=== PATIENT | male | born 1975 | race Caucasian/White ===

== ENCOUNTER 2019-08-23 08:47 | Outpatient (CLI) | payer MEDICARE, SELFPAY | END 2019-08-23 08:48 | disposition home or self-care (01) | LOC: CHSLAB 08:50 | PROVIDERS: PCP Physician Assistant; Visit Provider Internal Medicine Hematology & Oncology | DX: E61.1 Iron deficiency (principal) | CPT/HCPCS: 36415; 81479 ==

== ENCOUNTER 2019-09-04 10:13 | Outpatient (CLI) | payer MEDICARE, SELFPAY ==
[2019-09-04 10:29] LABS: Basophils Absolute Auto 0.05 K/mm3 (0.00-0.10); Basophils Percent Auto 0.4 % (0.0-1.0); Eosinophils Absolute Auto 0.21 K/mm3 (0.02-0.50); Eosinophils Percent Auto 1.7 % (1.0-6.0); Hematocrit 43.2 % (40.0-54.0); Hemoglobin 14.3 g/dL (14.0-18.0); Immature Granulocyte Absolute 0.03 K/mm3 (0.00-0.00); Immature Granulocyte Percent A 0.2 % (0.0-0.0); Lymphocytes Absolute Auto 1.93 K/mm3 (1.10-4.50); Lymphocytes Percent Auto 15.2 % (18.0-42.0); Mean Corpuscular HGB Conc 33.1 g/dL (32.0-36.0); Mean Corpuscular Hemoglobin 29.8 pg (27.0-31.0); Mean Platelet Volume 9.2 fl (8.7-11.0); Monocytes Absolute Auto 0.61 K/mm3 (0.10-0.90); Monocytes Percent Auto 4.8 % (2.0-11.0); Neutrophils Absolute Auto 9.9 K/mm3 (1.7-7.2); Neutrophils Percent Auto 77.7 % (50.0-70.0); Platelet Count Result 247 K/mm3 (150-420); Red Cell Distribution Width 13.9 % (11.6-14.4); White Blood Count 12.7 K/mm3 (4.8-10.8)
[2019-09-04 11:31] LABS: Ferritin 64 ng/mL (26-388); Iron 54 ug/dL (65-175); Percent Iron Saturation 20 % (12-57)
[2019-09-07 03:41] LABS: Transferrin 236 mg/dL (188-341)
== END 2019-09-04 10:14 | disposition home or self-care (01) ==
PROVIDERS: PCP Physician Assistant; Visit Provider Internal Medicine Hematology & Oncology
DX: E61.1 Iron deficiency (principal)
CPT/HCPCS: 36415; 82728; 83540; 83550; 84466; 85025

== ENCOUNTER 2021-03-24 07:48 | Outpatient (CLI) | payer MEDICARE, SELFPAY ==
[2021-03-24 08:05] LABS: Basophils Absolute Auto 0.04 K/mm3 (0.00-0.10); Basophils Percent Auto 0.4 % (0.0-1.0); Eosinophils Absolute Auto 0.56 K/mm3 (0.02-0.50); Eosinophils Percent Auto 5.6 % (1.0-6.0); Hematocrit 44.4 % (40.0-54.0); Immature Granulocyte Absolute 0.05 K/mm3 (0.00-0.00); Immature Granulocyte Percent A 0.5 % (0.0-0.0); Lymphocytes Absolute Auto 1.54 K/mm3 (1.10-4.50); Lymphocytes Percent Auto 15.5 % (18.0-42.0); Mean Corpuscular HGB Conc 33.8 g/dL (32.0-36.0); Mean Corpuscular Hemoglobin 31.3 pg (27.0-31.0); Mean Corpuscular Volume 92.7 fL (78.0-102.0); Mean Platelet Volume 9.1 fl (8.7-11.0); Monocytes Absolute Auto 0.68 K/mm3 (0.10-0.90); Monocytes Percent Auto 6.9 % (2.0-11.0); Neutrophils Absolute Auto 7.1 K/mm3 (1.7-7.2); Neutrophils Percent Auto 71.1 % (50.0-70.0); Platelet Count Result 195 K/mm3 (150-420); Red Blood Count 4.79 M/mm3 (4.70-6.10); Red Cell Distribution Width 12.9 % (11.6-14.4); White Blood Count 9.9 K/mm3 (4.8-10.8)
[2021-03-24 08:48] LABS: Alanine Aminotransferase 45 U/L (16-63); Albumin Level 3.7 g/dL (3.4-5.0); Alkaline Phosphatase 139 U/L (46-116); Anion Gap 8 mmol/L (8-16); Aspartate Amino Transferase 17 U/L (15-37); Bilirubin,Total 0.3 mg/dL (0.00-1.00); Blood Urea Nitrogen 14 mg/dL (7-18); Carbon Dioxide 30 mmol/L (21-32); Chloride 102 mmol/L (98-108); Estimated Glomerular Filt Rate > 60; Glucose 63 mg/dL (70-99); Osmolality Calculated 288 mOsm/kg (285-295); Potassium 4.4 mmol/L (3.5-5.1); Sodium 140 mmol/L (136-145); Total Protein 7.4 g/dL (6.4-8.2)
[2021-03-27 09:13] LABS: NIL 0.02 IU/mL
[2021-03-27 09:14] LABS: Quantiferon TB Plus, 1T NEGATIVE
== END 2021-03-24 07:49 | disposition home or self-care (01) ==
LOC: CHSLAB 07:52
PROVIDERS: PCP Physician Assistant; Visit Provider Dermatology
DX: L40.0 Psoriasis vulgaris (principal)
CPT/HCPCS: 36415; 80053; 85025; 86480

== ENCOUNTER 2023-02-15 09:18 | Emergency (ER) | payer MEDICARE, MEDICAID, SELFPAY ==
[2023-02-15 09:18] VITALS: BP 133/89; PULSE 79; RESP 18; TEMP 36.8; O2SAT 96
--- NOTE | 2023-02-15 09:28 | ED.WOUNDLAC ---
HPI - Wound/Laceration General Chief Complaint: Wound/Laceration Stated Complaint: post-op problem Time Seen by Provider: 02/15/23 09:25 Source: patient Mode of arrival: ambulatory Limitations: no limitations History of Present Illness HPI narrative: Patient is a 47-year-old gentleman from a [place]. Patient has suppurative hydradenitis and had surgery on both armpits in the past week. His right armpit stitches broke open and now having some discharge. No fever or chills. Onset (ago): day(s) (2) Location: other ( Right armpit) Place: home Patient tetanus UTD: Yes ( 3 years ago) Context: accidental Associated symptoms: none Treatments prior to arrival: bandage and NSAIDS Related Data Home Medications Medication Instructions Recorded Confirmed acetaminophen 500 mg capsule 500 mg PO TID PRN Pain (Scale 02/15/23 02/15/23 (Mapap (acetaminophen)) Score 1-3) aripiprazole 10 mg tablet 10 mg PO HS 02/15/23 02/15/23 atorvastatin 20 mg tablet 20 mg PO DAILY 02/15/23 02/15/23 bisacodyl 10 mg rectal suppository 10 mg RECTAL DAILY PRN Constipation 02/15/23 02/15/23 (Dulcolax (bisacodyl)) cetirizine 10 mg tablet 10 mg PO DAILY 02/15/23 02/15/23 guaifenesin 100 mg/5 mL oral liquid 200 mg PO Q4H PRN Cough 02/15/23 02/15/23 guaifenesin 600 mg tablet, 600 mg PO DAILY 02/15/23 02/15/23 extended release 12 hr (Mucus Relief ER) ibuprofen 400 mg tablet 400 mg PO TID 02/15/23 02/15/23 insulin detemir U-100 100 unit/mL 40 unit subcut HS 02/15/23 02/15/23 (3 mL) subcutaneous pen (Levemir FlexPen) metformin 500 mg tablet 500 mg PO BID 02/15/23 02/15/23 omeprazole 40 mg capsule,delayed 40 mg PO DAILY 02/15/23 02/15/23 release oxycodone 5 mg tablet 5 mg PO Q4-5H PRN Pain (Scale 02/15/23 02/15/23 Score 7-10) sertraline 100 mg tablet 100 mg PO HS 02/15/23 02/15/23 tadalafil 20 mg tablet 20 mg PO DAILY PRN Erectile 02/15/23 02/15/23 Dysfunction tramadol 50 mg tablet 50 mg PO Q6H PRN Pain (Scale Score 02/15/23 02/15/23 4-6) trazodone 100 mg tablet 100 mg PO HS 02/15/23 02/15/23 Allergies Allergy/AdvReac Type Severity Reaction Status Date / Time vancomycin Allergy Unknown Verified 02/15/23 09:28 Review of Systems Review of Systems: All systems reviewed & are unremarkable except as noted in HPI and below Constitutional: Constitutional: Reports no additional constitutional complaints Eyes: Eyes: Reports no additional eye complaints ENT: Reports system reviewed and no additional complaints, except as documented Cardiovascular: Cardiovascular: Reports no additional cardiovascular complaints Respiratory: Respiratory: Reports no additional respiratory complaints Gastrointestinal: Gastrointestinal: Reports no additional gastrointestinal complaints Genitourinary: Genitourinary: Reports no additional male genitourinary complaints Musculoskeletal: Musculoskeletal: Reports no additional musculoskeletal complaints Integumentary/Breasts: Skin/Breast: Reports system reviewed and no additional complaints, except as docu Neurologic: Reports system reviewed and no additional complaints, except as documented Psychiatric: Psychiatric: Reports no additional psychiatric complaints Endocrine: Endocrine: Reports no additional endocrine complaints Hematologic/Lymphatic: Hematologic/Lymphatic: Reports no additional hematologic/lymphatic complaints Allergic/Immunologic: Allergic/Immunologic: Reports no additional allergic/immunologic complaints Exam Const: General: healthy appearing Nutritional Appearance: well nourished Orientation/consciousness: patient oriented x3 Limitations: no limitations HENMT: Head: normal to inspection Eyes: Conjunctivae: conjunctivae normal Neck: Neck: normal visual inspection Chest: Chest palpation & inspection: normal inspection of the chest Resp: Effort & Inspection: normal respiratory effort Cardio: Rate: regular rate Rhythm: regular rhythm Heart sounds: no murmurs GI: Ins
[2023-02-15 09:48] VITALS: BP 133/89; PULSE 79; RESP 18; TEMP 36.8; O2SAT 96
== END 2023-02-15 10:08 | disposition home or self-care (01) ==
LOC: CHSED 10:01
PROVIDERS: Emergency Provider Emergency Medicine; PCP Physician Assistant
DX: T81.31XA Disruption of external operation (surgical) wound, not elsewhere classified, initial encounter (principal); L02.412 Cutaneous abscess of left axilla; L02.411 Cutaneous abscess of right axilla; Z79.4 Long term (current) use of insulin; Z79.1 Long term (current) use of non-steroidal anti-inflammatories (NSAID); Z79.891 Long term (current) use of opiate analgesic; Z79.899 Other long term (current) drug therapy
CPT/HCPCS: 99283

== ENCOUNTER 2023-02-18 08:39 | Emergency (ER) | payer MEDICARE, MEDICAID, SELFPAY ==
[2023-02-18 08:39] VITALS: BP 130/72; PULSE 83; RESP 20; TEMP 36.8; O2SAT 92
--- NOTE | 2023-02-18 08:49 | ED.WOUNDLAC ---
HPI - Wound/Laceration General Chief Complaint: Wound/Laceration Stated Complaint: wound check Time Seen by Provider: 02/18/23 08:48 Source: patient Mode of arrival: ambulatory Limitations: no limitations History of Present Illness HPI narrative: Patient is a 47-year-old male with a right armpit packing still in place which I Placed there 5 days ago. patient is taking his antibiotics as prescribed. No further drainage from the armpit. patient has a follow-up appointment with the surgeon in the upcoming 2 weeks. They will remove all the rest of the stitches at that time. Onset (ago): day(s) (5) Location: other ( Right armpit) Place: home Patient tetanus UTD: Yes Context: other ( surgery for gland removal of the armpit) Associated symptoms: none Related Data Home Medications Medication Instructions Recorded Confirmed acetaminophen 500 mg capsule 500 mg PO TID PRN Pain (Scale 02/15/23 02/18/23 (Mapap (acetaminophen)) Score 1-3) aripiprazole 10 mg tablet 10 mg PO HS 02/15/23 02/18/23 atorvastatin 20 mg tablet 20 mg PO DAILY 02/15/23 02/18/23 bisacodyl 10 mg rectal suppository 10 mg RECTAL DAILY PRN Constipation 02/15/23 02/18/23 (Dulcolax (bisacodyl)) cetirizine 10 mg tablet 10 mg PO DAILY 02/15/23 02/18/23 guaifenesin 100 mg/5 mL oral liquid 200 mg PO Q4H PRN Cough 02/15/23 02/18/23 guaifenesin 600 mg tablet, 600 mg PO DAILY 02/15/23 02/18/23 extended release 12 hr (Mucus Relief ER) ibuprofen 400 mg tablet 400 mg PO TID 02/15/23 02/18/23 insulin detemir U-100 100 unit/mL 40 unit subcut HS 02/15/23 02/18/23 (3 mL) subcutaneous pen (Levemir FlexPen) metformin 500 mg tablet 500 mg PO BID 02/15/23 02/18/23 omeprazole 40 mg capsule,delayed 40 mg PO DAILY 02/15/23 02/18/23 release oxycodone 5 mg tablet 5 mg PO Q4-5H PRN Pain (Scale 02/15/23 02/18/23 Score 7-10) sertraline 100 mg tablet 100 mg PO HS 02/15/23 02/18/23 tadalafil 20 mg tablet 20 mg PO DAILY PRN Erectile 02/15/23 02/18/23 Dysfunction tramadol 50 mg tablet 50 mg PO Q6H PRN Pain (Scale Score 02/15/23 02/18/23 4-6) trazodone 100 mg tablet 100 mg PO HS 02/15/23 02/18/23 Allergies Allergy/AdvReac Type Severity Reaction Status Date / Time vancomycin Allergy Unknown Verified 02/18/23 08:43 Review of Systems Review of Systems: All systems reviewed & are unremarkable except as noted in HPI and below Constitutional: Constitutional: Reports no additional constitutional complaints Eyes: Eyes: Reports no additional eye complaints ENT: Reports system reviewed and no additional complaints, except as documented Cardiovascular: Cardiovascular: Reports no additional cardiovascular complaints Respiratory: Respiratory: Reports no additional respiratory complaints Gastrointestinal: Gastrointestinal: Reports no additional gastrointestinal complaints Genitourinary: Genitourinary: Reports no additional male genitourinary complaints Musculoskeletal: Musculoskeletal: Reports no additional musculoskeletal complaints Integumentary/Breasts: Skin/Breast: Reports system reviewed and no additional complaints, except as docu Neurologic: Reports system reviewed and no additional complaints, except as documented Psychiatric: Psychiatric: Reports no additional psychiatric complaints Endocrine: Endocrine: Reports no additional endocrine complaints Hematologic/Lymphatic: Hematologic/Lymphatic: Reports no additional hematologic/lymphatic complaints Allergic/Immunologic: Allergic/Immunologic: Reports no additional allergic/immunologic complaints Exam Const: General: healthy appearing Nutritional Appearance: well nourished HENMT: Head: normal to inspection Ears: external ears normal Eyes: Conjunctivae: conjunctivae normal Pupils: Equal, round and reactive pupils present Neck: Neck: normal visual inspection and no lymphadenopathy Chest: Chest palpation & inspection: normal inspection of the chest Resp: Effort & Inspection: normal respiratory eff
--- NOTE | 2023-02-18 08:53 | PC.NURSE ---
Abdominal pad placed on wound per dr alexander
[2023-02-18 09:04] VITALS: PULSE 80; RESP 20; O2SAT 95
== END 2023-02-18 09:06 | disposition home or self-care (01) ==
PROVIDERS: Emergency Provider Emergency Medicine
DX: T81.49XA Infection following a procedure, other surgical site, initial encounter (principal); L02.411 Cutaneous abscess of right axilla
CPT/HCPCS: 99281

== ENCOUNTER 2024-04-23 14:26 | Emergency (ER) | payer MEDICARE, MEDICAID, SELFPAY ==
--- NOTE | ~2024-04-23 | CT_ITS ---
EXAMINATION: CT pelvis w con DATE: 04/23/2024 15:58 INDICATION: Right groin abscess. TECHNIQUE: Computed tomography (CT) of the pelvis was performed with 100 mL Omnipaque 350 intravenous contrast. Automated exposure control and iterative reconstruction technique were employed. The dose- length product was 378.10 mGy-cm. COMPARISON: CT abdomen and pelvis 04/14/2018 FINDINGS: There are no dilated loops of bowel. There is a left inguinal hernia containing fat. There is scrotal skin thickening. In the scrotum on the right, there is a 4.3 x 1.5 x 2.6 cm rim-enhancing fluid collection. There is subcutaneous fat stranding in the buttocks and anterior abdomen and pelvis . There is mild left inguinal lymphadenopathy, likely reactive. There is mild osteoarthritis of the h ips. There is mild lumbar spondylosis. IMPRESSION: 1. 4.3 x 1.5 x 2.6 cm abscess in the scrotum on the right. Reviewed, dictated and finalized at location A.
[2024-04-23 14:27] VITALS: BP 121/69; PULSE 87; RESP 20; TEMP 36.4; O2SAT 93
--- NOTE | 2024-04-23 14:51 | ED.GENADULT ---
HPI - General Adult General Chief complaint: Urogenital-Male Stated complaint: testicles swellen Source: patient Mode of arrival: ambulatory Limitations: no limitations History of Present Illness HPI narrative: 48 years old white male came to the ED by private car complaining of severe pain at the genital area and right groin area for a while got worse moved yesterday. Patient unable to sit complaining of severe pain, swelling and purulent discharge from the right groin area. 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 He denies any fever or chills or nausea or vomiting. Related Data Home Medications Medication Instructions Recorded Confirmed acetaminophen 500 mg capsule 500 mg PO TID PRN Pain (Scale 02/15/23 02/18/23 (Mapap (acetaminophen)) Score 1-3) aripiprazole 10 mg tablet 10 mg PO HS 02/15/23 02/18/23 atorvastatin 20 mg tablet 20 mg PO DAILY 02/15/23 02/18/23 bisacodyl 10 mg rectal suppository 10 mg RECTAL DAILY PRN Constipation 02/15/23 02/18/23 (Dulcolax (bisacodyl)) guaifenesin 100 mg/5 mL oral liquid 200 mg PO Q4H PRN Cough 02/15/23 02/18/23 ibuprofen 400 mg tablet 600 mg PO TID 02/15/23 02/18/23 insulin detemir U-100 100 unit/mL 40 unit subcut HS 02/15/23 02/18/23 (3 mL) subcutaneous pen (Levemir FlexPen) metformin 500 mg tablet 500 mg PO BID 02/15/23 02/18/23 omeprazole 40 mg capsule,delayed 40 mg PO BID 02/15/23 02/18/23 release oxycodone 5 mg tablet 5 mg PO Q12H PRN Pain (Scale Score 02/15/23 02/18/23 7-10) sertraline 100 mg tablet 100 mg PO HS 02/15/23 02/18/23 tadalafil 20 mg tablet 20 mg PO DAILY PRN Erectile 02/15/23 02/18/23 Dysfunction tramadol 50 mg tablet 50 mg PO Q8H PRN Pain (Scale Score 02/15/23 02/18/23 4-6) trazodone 100 mg tablet 100 mg PO HS 02/15/23 02/18/23 clindamycin phosphate 1 % lotion 1 applic topical DAILY 04/23/24 04/23/24 doxycycline hyclate 100 mg capsule 100 mg PO BID 04/23/24 04/23/24 ketoconazole 2 % topical cream 1 applic topical BID 04/23/24 04/23/24 multivitamin-iron sulfate 15 1 tablet PO DAILY 04/23/24 04/23/24 mg-folic acid 400 mcg tablet (Tab-A-Jovi Multivitamin w-iron) nicotine 7 mg/24 hr daily 1 patch topical DAILY 04/23/24 04/23/24 transdermal patch nystatin 100,000 unit/gram topical 1 unit topical BID 04/23/24 04/23/24 cream Allergies Allergy/AdvReac Type Severity Reaction Status Date / Time vancomycin AdvReac Other Verified 04/23/24 17:18 Review of Systems Review of Systems: All systems reviewed & are unremarkable except as noted in HPI and below Exam Narrative: General appearance: Well-developed, well-nourished Severe smell of infection Skin: Normal color Head: Normocephalic, nontraumatic Eyes: Clear conjunctiva ENT: Oropharynx normal, ears normal, nose normal Neck: Supple, nontender Chest and respiratory: Airway patent, no respiratory distress, no accessory muscle use Heart: Regular rate/rhythm Abdomen /pelvic area showed large wrinkled scrotum, erythematous, edematous swollen penis, purulent discharge with a large opening between the thigh and scrotum on the right side. Vascular: Normal peripheral pulses, normal capillary refill. Musculoskeletal: Normal range of motion, nontender back Neurologic: Alert and oriented ?3, [employer] is normal as tested, no gross motor deficit Course Consultations Consultation #1: DR LEONARDO, UROLOGIST AT [facility] WHO ACCEPTED PATIENT TRANSFER BUT WAS TOLD THAT PATIENT DECIDED TO SIGN AGAINST MEDICAL ADVICE. Date: 04/23/24 Time: 17:56 Vital Signs Vital signs: Vital Signs Temperature 36.4 C L 04/23/24 14:27 Pulse Rate 87 04/23/24 14:27 Respiratory Rate 20 04/23/24 14:
[2024-04-23] MEDS: SODIUM CHLORIDE 0.9% IV 1,000 ML 999 ML IV CONT (15:04)
[2024-04-23] MEDS: PIPERACILLN/TAZ 3.375GM/NS50ML 3.375 GM/50 ML BAG IVPB (15:05)
[2024-04-23 15:17] LABS: Basophils Absolute Auto 0.02 K/mm3 (0.00-0.10); Basophils Percent Auto 0.2 % (0.0-1.0); Eosinophils Absolute Auto 0.26 K/mm3 (0.02-0.50); Eosinophils Percent Auto 2.3 % (1.0-6.0); Hematocrit 34.7 % (40.0-54.0); Hemoglobin 11.4 g/dL (14.0-18.0); Immature Granulocyte Absolute 0.06 K/mm3 (0.00-0.00); Immature Granulocyte Percent A 0.5 % (0.0-0.0); Lymphocytes Absolute Auto 0.81 K/mm3 (1.10-4.50); Mean Corpuscular HGB Conc 32.9 g/dL (32-36); Mean Corpuscular Hemoglobin 27.9 pg (27.0-31.0); Mean Platelet Volume 9.5 fl (8.7-11.0); Monocytes Absolute Auto 0.64 K/mm3 (0.10-0.90); Monocytes Percent Auto 5.6 % (2.0-11.0); Neutrophils Absolute Auto 9.72 K/mm3 (1.70-7.20); Neutrophils Percent Auto 84.4 % (50.0-70.0); Platelet Count Result 223 K/mm3 (150-420); Red Blood Count 4.08 M/mm3 (4.70-6.10); Red Cell Distribution Width 14.1 % (11.6-14.4); White Blood Count 11.5 K/mm3 (4.8-10.8)
[2024-04-23 15:31] LABS: Alanine Aminotransferase 34 U/L (16-63); Albumin Level 2.9 g/dL (3.4-5.0); Alkaline Phosphatase 193 U/L (46-116); Anion Gap 6 mmol/L (4-12); Aspartate Amino Transferase 20 U/L (15-37); Bilirubin,Total 0.4 mg/dL (0.00-1.00); Blood Urea Nitrogen 7 mg/dL (7-18); CRP 4.4 mg/dL (0.0-0.9); Calcium 8.9 mg/dL (8.5-10.1); Carbon Dioxide 32 mmol/L (21-32); Chloride 100 mmol/L (98-108); Estimated CRCL calculation 123 ml/min; Estimated Glomerular Filt Rate > 60; Glucose 147 mg/dL (70-99); Osmolality Calculated 287 mOsm/kg (285-295); Potassium 3.8 mmol/L (3.5-5.1); Sodium 138 mmol/L (136-145); Total Protein 7.3 g/dL (6.4-8.2)
[2024-04-23 15:37] LABS: Lactic Acid Reflex 0.6 mmol/L (0.4-2.0)
[2024-04-23] MEDS: VANCOMYCIN 1,500 MG/NS 500 ML 1,500 MG/500 ML BAG 250 MG IVPB (15:56)
--- NOTE | 2024-04-25 08:41 | PC.NURSE ---
PRELIMINARY BLOOD CULTURE RESULT: GRAM POSITIVE COCCI IN CLUSTERS ISOLATED FROM AEROBIC BOTTLE ONLY. PER DR JOHNSON, TO AWAIT FINAL RESULTS WITH C&S.
--- NOTE | 2024-04-25 12:20 | PC.NURSE ---
PRELIMINARY BLOOD CULTURE RESULTS X2: ISOLATE 1: GRAM POSITIVE COCCI IN CLUSTERS ISOLATED FROM AEROBIC AND ANAEROBIC BOTTLES PRELIMINARY WOUND CULTURE AEROBIC RESULTS: ISOLATE 1: MODERATE GROWTH OF PSEUDOMONAS AERUGINOSA. ISOLATE 2: MODERATE GROWTH OF GROUP B STREPTOCOCCUS ISOLATED. ORGANISM 1 PSEUDOMONAS AERUGINOSA ORGANISM 2 GROUP B STREPTOCOCCUS ISOLATED TO AWAIT FINAL RESULTS WITH C&S PER DR JOHNSON.
--- NOTE | 2024-04-25 12:37 | PC.NURSE ---
preliminary blood culture results: staph hominis in aerobic and anaerobic bottles, sensitivities to follow. per dr zarate to await c&s
--- NOTE | 2024-04-26 08:54 | PC.NURSE ---
FINAL BLOOD CULTURE RESULTS X2: STAPHYLOCOCCUS HOMINIS FROM AEROBIC AND ANAEROBIC BOTTLES. PER C&S AND DR. JOSEPH NO CHANGE IN TREATMENT NEEDED.
--- NOTE | 2024-04-27 13:01 | PC.NURSE ---
Wound culture, aerobic Cul w/GS: Final report - Mixed bacterial ashley, skin ashley also present. Isolate 1: Moderate growth of Pseudomonas aeruginosa. Isolate 2: Moderate growth of Group B Streptococcus isolated. Pt given multiple IV antibiotics while in ER and given a Px for clindamycin 300mg. Culture reports reviewed by Dr. Palacios, no new orders.
--- NOTE | 2024-04-30 12:51 | PC.NURSE ---
final blood culture results: staphylococcus hominis from aerobic bottle only. per c&s and dr taylor, no change in tx needed.
== END 2024-04-23 18:06 | disposition left against medical advice (07) ==
PROVIDERS: Emergency Provider Emergency Medicine
DX: N49.2 Inflammatory disorders of scrotum (principal)
CPT/HCPCS: 36415; 72193; 80053; 83605; 85025; 86140; 87040; 87070; 87147; 87181; 87186; 87205; 96365; 96366; 96367; 99284; J2543; J3370; J7030; Q9967

== ENCOUNTER 2025-01-02 08:13 | Emergency (ER) | payer MEDICARE, MEDICAID, SELFPAY ==
[2025-01-02 08:13] VITALS: BP 123/88; PULSE 77; RESP 16; TEMP 36.2; O2SAT 92
--- OUTSIDE RECORDS SUMMARY | 2025-01-02 08:23 | XMS_ITS | Data Portability ---
Author Organization [facility] Address [address] [place] [address] Care Team Providers Care Retort Kiln Burner Name Role Phone NAYANA PETERSON Primary Care Provider Assessment No assessment recorded. Plan of Treatment Reminders Order Date Submit Date Provider Last Modified By Organization Details Last Modified Time Details Appointments None recorded. Lab CBC 2024 025 [email or web address] [facility], [address] [place] [address], [id number], 12:31:53 CMP, serum or plasma 2024 025 [email or web address] [facility], [address] [place] [address], [address], 12:31:53 lipid panel, serum 2024 025 [email or web address] [facility], [address] [place] [address], [address], 12:31:53 hemoglobi n A1c, QN, blood 2024 025 [email or web address] [facility], [address] [place] [address] 2, [place], [address], 5 12:31:53 CBC 2024 025 MARY [facility], [address] [facility] [address], [place], [address], 5 10:10:42 CMP, serum or plasma 2024 025 MARY [facility], [address], [place], [address], 5 10:10:41 lipid panel, serum 2024 025 MARY [facility], [address], [place], [address], 5 10:10:40 HbA1c (hemoglob in A1c), blood 2024 025 MARY In-Office Order, Internal Use Only DO Not Attach Compendium DO Not Attach Compendium, Do Not Delete/merge, [id number] 15:16:11 HbA1c (hemoglob in A1c), blood 2023 024 esperanza In-Office Order, Internal Use Only DO Not Attach Compendium DO Not Attach Compendium, Do Not Delete/merge, [id number] 15:55:03 CBC 2023 024 MARY [facility], [address], [place], [address], 4 09:21:16 CMP, serum or plasma 2023 024 MARY [facility], [address], [place], [address], 4 09:21:14 lipid panel, serum 2023 024 MARY [facility], [address], [place], [address], 4 09:21:14 HbA1c (hemoglob in A1c), blood 2023 024 MARY In-Office Order, Internal Use Only DO Not Attach Compendium DO Not Attach Compendium, Do Not Delete/merge, [id number] 12:17:53 HbA1c (hemoglob in A1c), blood 2023 024 [facility] In-Office Order, Internal Use Only DO Not Attach Compendium DO Not Attach Compendium, Do Not Delete/merge, [id number] 4 11:21:12 Referral urologist referral 2023 024 akin Diaz MD, [address] [facility] [address], [place], [address], 5 11:03:52 Procedures None recorded. Surgeries None recorded. Imaging None recorded. Medication Orders tramadol 50 mg tablet 2024 025 [facility]/Pharmacy #[id number], [address] [place], [address], 5 15:50:31 tramadol 50 mg tablet 2024 025 [id number] [address] [place], [address], 5 15:02:48 atorvasta tin 20 mg tablet 2024 025 [facility]/Pharmacy #[id number], [address] [place], [address], 5 15:43:14 metformin 500 mg tablet 2024 025 [id number] [address] [place], [address], 5 15:02:34 OneTouch Ultra Test strips 2024 025 [facility]/Pharmacy #[id number], [address] [place], [address], 5 15:02:37 sertralin e 100 mg tablet 2024 025 [facility]/Pharmacy #[id number], [address] [place], [address], 5 15:44:22 trazodone 100 mg tablet 2024 025 [id number], [address] [place], [address], 5 15:02:35 Stool Softener 100 mg capsule 2024 025 [id number] [address] [place], [address], 5 15:03:02 omeprazol e 40 mg capsule,d elayed release 2024 025 [id number], [address] [place], [address], 5 15:02:37 clindamyc in HCl 300 mg capsule 2024 025 [id number] [address] [place], [address], 5 15:04:43 Lantus Solostar U-100 Insulin 100 unit/mL (3 mL) subcutane ous pen 2024 025 [id number], [address] [place], [address], 5 16:23:37 tramadol 50 mg tablet 2023 024 [facility], [address] [place] [address] [address], [place], [address], 4 15:15:52 nicotine 7 mg/24 hr daily transderm al patch 2023 024 [email or web address], [address] [place] [address] [address], [address], [place], [address], 5 14:39:31 Stool Softener 100 mg capsule 2023 024 [facility], [address] [address], [place], [address], 11:22:19 Patient TargetsNo targets recorded. Patient Instructions Encounter Date Encounter Id Patient Instructions Last Modified By Organization Details Last Modified Time 07/26/2023 [id number] deciding about using medicines to quit smoking jnanney Not available 07/26/2023 11:21:10 Quitting Tobacco : Care Instructions jnanney Not available 07/26/2023 11:21:10 constipation: care instructions jnanney Not available 07/26/2023 11:21:10 A healthy lifestyle: care instructions jnanney Not available 07/26/2023 11:21:10 type 2 diabetes: care instructions jnanney Not available 07/26/2023 11:21:10 09/27/2023 [id number] A healthy lifestyle: care instructions jnanney Not available 09/27/2023 11:17:40 learning about type 2 diabetes jnanney Not available 09/27/2023 11:17:40 type 2 diabetes: care instructions jnanney Not available 09/27/2023 11:17:40 04/26/2024 [id number] A healthy lifestyle: care instructions jnanney Not available 04/26/2024 15:16:19 learning about type 2 diabetes jnanney Not available 04/26/2024 15:55:03 type 2 diabetes: care instructions jnanney Not available 04/26/2024 15:55:03 08/09/2024 [id number] A healthy lifestyle: care instructions jnanney Not available 08/09/2024 15:02:23 learning about high blood pressure jnanney Not available 08/09/2024 15:02:23 10/18/2024 [id number] A healthy lifestyle: care instructions jnanney Not available 10/18/2024 15:50:28 type 2 diabetes: care instructions jnanney Not available 10/18/2024 15:50:28 Reason for Referral Urologist Referral for Swell ing of testicle Referring Physician: Nayana Peterson, Family Medicine, Encounter Date: 04/26/2024 Results Created Date Observation Date Name Description Value Unit Range Abnormal Flag Note LastModifiedBy Organization Detail LastModifiedTime 07/26/19 24 07/26/2023 HbA1c (hemo globi n A1c), blood HbA1c 6.6 Not Available In-Office Order Internal Use Only DO Not Attach Compendium DO Not Attach Compendium, Do Not Delete/merge, [id number] 07/26/2023 09:23:11 09/27/19 24 09/28/2023 LIPID PANEL cholesterol, total 127 mg/dL 100-19 9 Not Available [address], [address], 09/28/2023 09:21:14 09/27/1909/28/2023 LIPID PANEL triglyceride s 135 mg/dL 0-149 Not Available [address], [address], 09/28/2023 09:21:14 09/27/1909/28/2023 LIPID PANEL HDL cholesterol 36 mg/dL >39 below low normal Not Available [address], [address], 09/28/2023 09:21:14 09/27/1909/28/2023 LIPID PANEL VLDL cholesterol quita 24 mg/dL 5-40 Not Available [address], [address], 09/28/2023 09:21:14 09/27/1909/28/2023 LIPID PANEL LDL chol calc (nih) 67 mg/dL 0-99 Not Available [address], [address], 09/28/2023 09:21:14 09/27/1909/28/2023 COMP. METAB OLIC PANEL (14) glucose 88 mg/dL 70-99 Not Available [address], [address], 09/28/2023 09:21:14 09/27/19 24 09/28/2023 COMP. METAB OLIC PANEL (14) BUN 10 mg/dL 6-24 Not Available [address], [address], 09/28/2023 09:21:14 09/27/19 24 09/28/2023 COMP. METAB OLIC PANEL (14) creatinine 0.69 mg/dL 0.76-1 .27 below low normal Not Available [address], [address], 09/28/2023 09:21:14 09/27/19 24 09/28/2023 COMP. METAB OLIC PANEL (14) eGFR 115 mL/mi n/1.7 3 >59 Not Available [address], [address], 09/28/2023 09:21:14 09/27/19 24 09/28/2023 COMP. METAB OLIC PANEL (14) BUN/creatini ne ratio 14 9-20 Not Available [address], [address], 09/28/2023 09:21:14 09/27/19 24 09/28/2023 COMP. METAB OLIC PANEL (14) sodium 140 mmol/ L 134-14 4 Not Available [address], [address], 09/28/2023 09:21:14 09/27/19 24 09/28/2023 COMP. METAB OLIC PANEL (14) potassium 4.4 mmol/ L 3.5-5. 2 Not Available [address], [address], 09/28/2023 09:21:14 09/27/19 24 09/28/2023 COMP. METAB OLIC PANEL (14) chloride 100 mmol/ L 96-106 Not Available [address], [address], 09/28/2023 09:21:14 09/27/19 24 09/28/2023 COMP. METAB OLIC PANEL (14) carbon dioxide, total 26 mmol/ L 20-29 Not Available [address], [address], 09/28/2023 09:21:14 09/27/19 24 09/28/2023 COMP. METAB OLIC PANEL (14) calcium 9.3 mg/dL 8.7-10 .2 Not Available [address], [address], 09/28/2023 09:21:14 09/27/19 24 09/28/2023 COMP. METAB OLIC PANEL (14) protein, total 7.5 g/dL 6.0-8. 5 Not Available [address], [address], 09/28/2023 09:21:14 09/27/19 24 09/28/2023 COMP. METAB OLIC PANEL (14) albumin 4.4 g/dL 4.1-5. 1 Not Available [address], [address], 09/28/2023 09:21:14 09/27/19 24 09/28/2023 COMP. METAB OLIC PANEL (14) globulin, total 3.1 g/dL 1.5-4. 5 Not Available [address], [address], 09/28/2023 09:21:14 09/27/19 24 09/28/2023 COMP. METAB OLIC PANEL (14) A/G ratio 1.4 1.2-2. 2 Not Available [address], [address], 09/28/2023 09:21:14 09/27/19 24 09/28/2023 COMP. METAB OLIC PANEL (14) bilirubin, total 0.3 mg/dL 0.0-1. 2 Not Available [address], [address], 09/28/2023 09:21:14 09/27/19 24 09/28/2023 COMP. METAB OLIC PANEL (14) alkaline phosphatase 208 IU/L 44-121 above high normal Not Available [address], [address], 09/28/2023 09:21:14 09/27/19 24 09/28/2023 COMP. METAB OLIC PANEL (14) AST (SGOT) 18 IU/L 0-40 Not Available [address], [address], 09/28/2023 09:21:14 09/27/19 24 09/28/2023 COMP. METAB OLIC PANEL (14) ALT (SGPT) 30 IU/L 0-44 Not Available [address], [address], 09/28/2023 09:21:14 09/27/19 24 09/28/2023 CARDI OVASC ULAR REPOR T interpretati on Note Suppl emlelia al repor t is avail able. Not Available [address], [address], 09/28/2023 09:21:15 09/27/19 24 09/28/2023 CARDI OVASC ULAR REPOR T pdf . Not Available [address], [address], 09/28/2023 09:21:15 09/27/19 24 09/28/2023 CBC, PLATE LET, NO DIFFE RENTI AL WBC 6.0 x10e3 /uL 3.4-10 .8 Not Available [facility] [address], [address], 09/28/2023 09:21:16 09/27/1909/28/2023 CBC, PLATE LET, NO DIFFE RENTI AL RBC 5.09 x10e6 /uL 4.14-5 .80 Not Available [address], [address], 09/28/2023 09:21:16 09/27/1909/28/2023 CBC, PLATE LET, NO DIFFE RENTI AL hemoglobin 14.2 g/dL 13.0-1 7.7 Not Available [address], [address], 09/28/2023 09:21:16 09/27/1909/28/2023 CBC, PLATE LET, NO DIFFE RENTI AL hematocrit 43.5 % 37.5-5 1.0 Not Available [address], [address], 09/28/2023 09:21:16 09/27/1909/28/2023 CBC, PLATE LET, NO DIFFE RENTI AL MCV 86 fL 79-97 Not Available [address], [address], 09/28/2023 09:21:16 09/27/1909/28/2023 CBC, PLATE LET, NO DIFFE RENTI AL MCH 27.9 pg 26.6-3 3.0 Not Available [address], [address], 09/28/2023 09:21:16 09/27/1909/28/2023 CBC, PLATE LET, NO DIFFE RENTI AL MCHC 32.6 g/dL 31.5-3 5.7 Not Available [address], [address], 09/28/2023 09:21:16 09/27/19 24 09/28/2023 CBC, PLATE LET, NO DIFFE RENTI AL RDW 14.2 % 11.6-1 5.4 Not Available [address], [address], 09/28/2023 09:21:16 09/27/19 24 09/28/2023 CBC, PLATE LET, NO DIFFE RENTI AL platelets 210 x10e3 /uL 150-45 0 Not Available [address], [address], 09/28/2023 09:21:16 09/27/19 24 09/27/2023 HbA1c (hemo globi n A1c), blood HbA1c 5.4 Not Available In-Office Order Internal Use Only DO Not Attach Compendium DO Not Attach Compendium, Do Not Delete/merge, [id number] 09/27/2023 11:17:21 04/26/20 24 04/26/2024 HbA1c (hemo globi n A1c), blood HbA1c 6.4 Not Available In-Office Order Internal Use Only DO Not Attach Compendium DO Not Attach Compendium, Do Not Delete/merge, [id number] 04/26/2024 09:02:00 08/09/19 25 08/11/2024 LIPID PANEL cholesterol, total 155 mg/dL 100-19 9 Not Available [address], [address], 08/11/2024 10:10:40 08/09/19 25 08/11/2024 LIPID PANEL triglyceride s 307 mg/dL 0-149 above high normal Not Available [address], [address], 08/11/2024 10:10:40 08/09/19 25 08/11/2024 LIPID PANEL HDL cholesterol 40 mg/dL >39 Not Available [facility] [address] [place], [address], 08/11/2024 10:10:40 08/09/19 25 08/11/2024 LIPID PANEL VLDL cholesterol quita 49 mg/dL 5-40 above high normal Not Available [address], [address], 08/11/2024 10:10:40 08/09/19 25 08/11/2024 LIPID PANEL LDL chol calc ([facility]) 66 mg/dL 0-99 Not Available [address], [address], 08/11/2024 10:10:40 08/09/19 25 08/11/2024 COMP. METAB OLIC PANEL (14) glucose 107 mg/dL 70-99 above high normal Not Available [address], [address], 08/11/2024 10:10:41 08/09/19 25 08/11/2024 COMP. METAB OLIC PANEL (14) BUN 16 mg/dL 6-24 Not Available [address], [address], 08/11/2024 10:10:41 08/09/19 25 08/11/2024 COMP. METAB OLIC PANEL (14) creatinine 0.70 mg/dL 0.76-1 .27 below low normal Not Available [address], [address], 08/11/2024 10:10:41 08/09/19 25 08/11/2024 COMP. METAB OLIC PANEL (14) eGFR 114 mL/mi n/1.7 3 >59 Not Available [address], [address], 08/11/2024 10:10:41 08/09/19 25 08/11/2024 COMP. METAB OLIC PANEL (14) BUN/creatini ne ratio 23 9-20 above high normal Not Available [address], [address], 08/11/2024 10:10:41 08/09/19 25 08/11/2024 COMP. METAB OLIC PANEL (14) sodium 137 mmol/ L 134-14 4 Not Available [address], [address], 08/11/2024 10:10:41 08/09/19 25 08/11/2024 COMP. METAB OLIC PANEL (14) potassium 4.7 mmol/ L 3.5-5. 2 Not Available [address], [address], 08/11/2024 10:10:41 08/09/19 25 08/11/2024 COMP. METAB OLIC PANEL (14) chloride 96 mmol/ L 96-106 Not Available [address], [address], 08/11/2024 10:10:41 08/09/19 25 08/11/2024 COMP. METAB OLIC PANEL (14) carbon dioxide, total 29 mmol/ L 20-29 Not Available [address], [address], 08/11/2024 10:10:41 08/09/19 25 08/11/2024 COMP. METAB OLIC PANEL (14) calcium 11.2 mg/dL 8.7-10 .2 above high normal Not Available [address], [address], 08/11/2024 10:10:41 08/09/19 25 08/11/2024 COMP. METAB OLIC PANEL (14) protein, total 7.4 g/dL 6.0-8. 5 Not Available [address], [address], 08/11/2024 10:10:41 08/09/19 25 08/11/2024 COMP. METAB OLIC PANEL (14) albumin 4.3 g/dL 4.1-5. 1 Not Available [address], [address], 08/11/2024 10:10:41 08/09/1908/11/2024 COMP. METAB OLIC PANEL (14) globulin, total 3.1 g/dL 1.5-4. 5 Not Available [address], [address], 08/11/2024 10:10:41 08/09/1908/11/2024 COMP. METAB OLIC PANEL (14) bilirubin, total <0.2 mg/dL 0.0-1. 2 Not Available [address], [address], 08/11/2024 10:10:41 08/09/1908/11/2024 COMP. METAB OLIC PANEL (14) alkaline phosphatase 183 IU/L 44-121 above high normal Not Available [address], [address], 08/11/2024 10:10:41 08/09/19 25 08/11/2024 COMP. METAB OLIC PANEL (14) AST (SGOT) 27 IU/L 0-40 Not Available [address], [address], 08/11/2024 10:10:41 08/09/19 25 08/11/2024 COMP. METAB OLIC PANEL (14) ALT (SGPT) 28 IU/L 0-44 Not Available [address], [address], 08/11/2024 10:10:41 08/09/1908/11/2024 CARDI OVASC ULAR REPOR T interpretati on Note Suppl morena diaz repor t is avail able. Not Available [address], [address], 08/11/2024 10:10:42 08/09/1908/11/2024 CARDI OVASC ULAR REPOR T pdf . Not Available [address], [address], 08/11/2024 10:10:42 08/09/1908/11/2024 CBC, PLATE LET, NO DIFFE RENTI AL WBC 12.5 x10e3 /uL 3.4-10 .8 above high normal Not Available [address], [address], 08/11/2024 10:10:42 08/09/1908/11/2024 CBC, PLATE LET, NO DIFFE RENTI AL RBC 4.84 x10e6 /uL 4.14-5 .80 Not Available [address], [address], 08/11/2024 10:10:42 08/09/19 25 08/11/2024 CBC, PLATE LET, NO DIFFE RENTI AL hemoglobin 12.9 g/dL 13.0-1 7.7 below low normal Not Available [address], [address], 08/11/2024 10:10:42 08/09/1908/11/2024 CBC, PLATE LET, NO DIFFE RENTI AL hematocrit 40.9 % 37.5-5 1.0 Not Available [address], [address], 08/11/2024 10:10:42 08/09/1908/11/2024 CBC, PLATE LET, NO DIFFE RENTI AL MCV 85 fL 79-97 Not Available [address], [address], 08/11/2024 10:10:42 08/09/19 25 08/11/2024 CBC, PLATE LET, NO DIFFE RENTI AL MCH 26.7 pg 26.6-3 3.0 Not Available [address], [address], 08/11/2024 10:10:42 08/09/1908/11/2024 CBC, PLATE LET, NO DIFFE RENTI AL MCHC 31.5 g/dL 31.5-3 5.7 Not Available [address], [address], 08/11/2024 10:10:42 08/09/19 25 08/11/2024 CBC, PLATE LET, NO DIFFE RENTI AL RDW 15.5 % 11.6-1 5.4 above high normal Not Available [address], [address], 08/11/2024 10:10:42 08/09/19 25 08/11/2024 CBC, PLATE LET, NO DIFFE RENTI AL platelets 267 x10e3 /uL 150-45 0 Not Available [address], [address], 08/11/2024 10:10:42 08/09/1908/09/2024 HbA1c (hemo globi n A1c), blood HbA1c 6.2 Not Available In-Office Order Internal Use Only DO Not Attach Compendium DO Not Attach Compendium, Do Not Delete/merge, [id number] 08/09/2024 15:00:07 Result Notes None recorded. Problems No Known Problems Medical Equipment None Reported. Allergies No known drug allergies Medications Name Sig Start Date Stop Date Status Note LastModified by Organization Details LastModified Time hydrocortis one 0.5 % topical cream APPLY A THIN LAYER TO THE AFFECTED AREA(S) BY TOPICAL ROUTE one TIME PER DAY 01/05 completed Not Available Not Available Not Available metformin 500 mg tablet TAKE 1 TABLET TWICE A DAY BY ORAL ROUTE FOR 90 DAYS. 2024 active Not Available Not Available Not Avai lable doxycycline hyclate 100 mg capsule active Not Available Not Available N ot Available atorvastati n 20 mg tablet TAKE 1 TABLET BY MOUTH EVERY DAY active Not Available Not Available No t Available clindamycin HCl 300 mg capsule TAKE 1 CAPSULE BY MOUTH EVERY 6 HOURS FOR 10 DAYS 10/18 completed Not Available Not Available Not Available trazodone 50 mg tablet take 1 tablet at bedtime 07/26 completed Not Available Not Available Not Available cetirizine 10 mg tablet Take 1 tablet every day by oral route for 90 days. 09/26 completed Not Available Not Available Not Available Stool Softener 100 mg capsule Take 1 capsule every day by oral route for 30 days. 2024 active Not Available Not Available Not Avai lable ibuprofen 800 mg tablet 03/16 completed Not Available Not Available Not Available Nystop 100,000 unit/gram topical powder active Not Available Not Available Not Available sucralfate 1 gram tablet take 1 tablet 4 times daily 04/01 completed Not Available Not Available Not Available sertraline 100 mg tablet TAKE 1 TABLET BY MOUTH EVERY DAY 10/18 completed Not Available Not Available Not Available quetiapine 200 mg tablet 03/16 completed Not Available Not Available Not Available Lantus U-100 Insulin 100 unit/mL subcutaneou s solution 03/16 completed Not Available Not Available Not Available Biscolax 10 mg rectal suppository Insert 1 supposito ry every day by rectal route as needed. 04/01 completed Not Available Not Available Not Available Remicade 100 mg intravenous solution once per month 07/26 completed Not Available Not Available Not Available metronidazo le 500 mg tablet 03/16 completed Not Available Not Available Not Available sulfamethox azole 800 mg-trimetho prim 160 mg tablet 04/01 completed Not Available Not Available Not Available omeprazole 40 mg capsule,del ayed release TAKE 1 CAPSULE BY MOUTH EVERY DAY FOR 90 DAYS active Not Available Not Available No t Available tramadol 50 mg tablet TAKE 1 TABLET BY MOUTH EVERY 8 HOURS NEEDED active Not Available Not Available No t Available quetiapine 100 mg tablet 03/16 completed Not Available Not Available Not Available acetaminoph en 500 mg tablet active Not Available Not Available Not Available triamcinolo ne acetonide 0.1 % topical cream active Not Available Not Available Not Available linezolid 600 mg tablet active Not Available Not Available Not Available trazodone 100 mg tablet TAKE 1 TABLET BY MOUTH EVERYDAY AT BEDTIME active Not Available Not Available No t Available Humalog U-100 Insulin 100 unit/mL subcutaneou s solution 03/16 completed Not Available Not Available Not Available OneTouch Ultra Test strips USE 1 STRIP TWICE A DAY active Not Available Not Available No t Available cephalexin 500 mg capsule 07/26 completed Not Available Not Available Not Available ferrous sulfate 325 mg (65 mg iron) tablet Take 3 tablets every day by oral route. 04/01 completed Not Available Not Available Not Available nystatin 100,000 unit/gram topical cream active Not Available Not Available Not Available mupirocin calcium 2 % topical cream APPLY A SMALL AMOUNT TO THE AFFECTED AREA BY TOPICAL ROUTE 2 TIMES PER DAY 01/05 completed Not Available Not Available Not Available gabapentin 300 mg capsule 08/09 completed Not Available Not Available Not Available diclofenac sodium 50 mg tablet,rhiannon yed release take 1 tablet by mouth once daily as needed 07/26 completed Not Available Not Available Not Available Novolog U-100 Insulin aspart 100 unit/mL subcutaneou s solution 03/16 completed Not Available Not Available Not Available testosteron e cypionate 200 mg/mL intramuscul ar oil 03/16 completed Not Available Not Available Not Available ibuprofen 600 mg tablet active Not Available Not Available Not Available levofloxaci n 500 mg tablet 03/16 completed Not Available Not Available Not Available ketoconazol e 2 % topical cream active Not Available Not Available Not Available sertraline 50 mg tablet 03/16 completed Not Available Not Available Not Available mometasone 0.1 % topical cream APPLY A THIN LAYER TO THE AFFECTED AREA(S) BY TOPICAL ROUTE twice DAILY 01/05 completed Not Available Not Available Not Available Acidophilus capsule Take 1 capsule every day by oral route. 04/01 completed Not Available Not Available Not Available nicotine 7 mg/24 hr daily transdermal patch Apply 1 patch every day by transderm al route. 08/09 completed Not Available Not Available Not Available oxycodone 5 mg tablet 04/26 completed Not Available Not Available Not Available clindamycin 1 % lotion active Not Available Not Available N ot Available bisacodyl 5 mg tablet Take 2 tablets every day by oral route. 04/01 completed Not Available Not Available Not Available Stomach Relief 262 mg/15 mL oral suspension 08/09 completed Not Available Not Available Not Available aripiprazol e 10 mg tablet take 1 tablet by mouth daily at bedtime active Not Available Not Available No t Available aripiprazol e 5 mg tablet 03/16 completed Not Available Not Available Not Available lactulose 10 gram/15 mL oral solution 03/16 completed Not Available Not Available Not Available Novolog U-100 Insulin aspart inject 10 ml 3 times a day brfore meals 04/01 completed Not Available Not Available Not Available Levemir FlexPen 100 unit/mL (3 mL) solution subcutaneou s insulin pen 40 units [facility] 08/09 completed Not Available Not Available Not Available BD Insulin Syringe Ultra-Fine 1 mL 30 gauge x 1/2 test before meals and at bedtime 04/01 completed Not Available Not Available Not Available quetiapine 50 mg tablet 03/16 completed Not Available Not Available Not Available peg 3350-electr olytes 236 gram-22.74 gram-6.74 gram-5.86 gram solution 04/01 completed Not Available Not Available Not Available Lantus Solostar U-100 Insulin 100 unit/mL (3 mL) subcutaneou s pen INJECT 20 UNITS AT BEDTIME 2024 active Not Available Not Available Not Avai lable Mucus Relief ER 600 mg tablet, extended release Take 1 tablet every 12 hours by oral route for 90 days. 08/09 completed Not Available Not Available Not Available BD AutoShield Duo Pen Needle 30 gauge x 3/16 active Not Available Not Available Not Available Multi Vitamin take 1 tablet daily active Not Available Not Available No t Available Cosentyx Pen 300 mg/2 pens (150 mg/mL) subcutaneou s pen injector 10/18 completed Not Available Not Available Not Available testosteron e cypionate 200 mg/mL intramuscul ar kit Inject 2 mL every 4 weeks by intramusc ular route. 04/01 completed Not Available Not Available Not Available TechLITE Pen Needle 32 gauge x USE DIRECTED. NEEDS APPT BEFORE ANY MORE REFILLS active Not Available Not Available No t Available OneTouch Ultra Blue Test Strip USE ONE TEST STRIP TWICE A DAY FOR 90 DAYS (DX E11.9) active Not Available Not Available No t Available Humira(CF) Pen 40 mg/0.4 mL subcutaneou s kit 07/26 completed Not Available Not Available Not Available Humira(CF) Pen Crohn's-Ulc Colitis-Hid Sup Strt 80 mg/0.8 mL subcut kt 01/05 completed Not Available Not Available Not Available OneTouch Ultra2 Meter TEST TWICE A DAY (E11.9) active Not Available Not Available No t Available OneTouch Delica Plus Lancet 33 gauge USE 2 TIMES A DAY active Not Available Not Available No t Available Tab-A-Jovi Multivitami n w-iron 15 mg iron-400 mcg tablet active Not Available Not Available N ot Available Vitals Date Recorded Body height Body mass index (BMI) Body weight Heart rate Oxygen saturation Oxygen saturation in Arterial blood by Pulse oximetry Systolic blood pressure Diastolic blood pressure Provider Name and Address Organization Details Last Updated DateTime 4 180.34 cm 30.7 kg/m2 30506.4 2 g 78 /min 96 % 96 % 126 mm[Hg] 74 mm[Hg] Yina Lorenzana [place] [facility] 4 11:04:36 Date Recorded Body height Body mass index (BMI) Body weight Oxygen saturation Oxygen saturation in Arterial blood by Pulse oximetry Heart rate Respiratory rate Systolic blood pressure Diastolic blood pressure Provider Name and Address Organization Details Last Updated DateTime 5 180.34 cm 30.2 kg/m2 86606.3 9 g 98 % 98 % 78 /min 16 /min 118 mm[Hg] 76 mm[Hg] Theresa Pandey MA [facility] 5 14:42:34 Date Recorded Body height Body mass index (BMI) Body weight Heart rate Oxygen saturation Oxygen saturation in Arterial blood by Pulse oximetry Systolic blood pressure Diastolic blood pressure Provider Name and Address Organization Details Last Updated DateTime 4 180.34 cm 28.3 kg/m2 18395.2 5 g 79 /min 97 % 97 % 116 mm[Hg] 77 mm[Hg] Yina Lorenzana MA [facility] 4 10:50:53 Date Recorded Body height Body mass index (BMI) Body weight Respiratory rate Oxygen saturation Oxygen saturation in Arterial blood by Pulse oximetry Heart rate Systolic blood pressure Diastolic blood pressure Provider Name and Address Organization Details Last Updated DateTime 5 180.34 cm 31.1 kg/m2 094971. 1 g 16 /min 96 % 96 % 88 /min 117 mm[Hg] 72 mm[Hg] Theresa Pandey MA [facility] 5 15:06:45 Date Recorded Body height Body mass index (BMI) Body weight Oxygen saturation Oxygen saturation in Arterial blood by Pulse oximetry Heart rate Systolic blood pressure Diastolic blood pressure Provider Name and Address Organization Details Last Updated DateTime 4 180.34 cm 28.6 kg/m2 96002.5 4 g 95 % 95 % 102 /min 115 mm[Hg] 78 mm[Hg] Yina Lorenzana MA [facility] 4 15:01:26 Social History Question Answer Notes LastModified by Organizat ion Details LastModified Time Tobacco Smoking Status Current Every Day Smoker Ramya Bourgeois MA [facility] 03/16/2019 16:01:26 Are You Blind Or Do You Have Difficulty Seeing? No Information n ot available 01/09/2021 What Is Your Level Of Caffeine Consumption? Moderate Information not available 01/09/2021 How Much Tobacco Do You Chew? None Information not available 04/01/2020 In The 14 Days Before Symptom Onset, Have You Had Close Contact With A Laboratory-confirm ed COVID-19 While That Case Was Ill? No Information n ot available 12/01/2021 In The 14 Days Before Symptom Onset, Have You Had Close Contact With A Person Who Is Under Investigation For COVID-19 While That Person Was Ill? No Information not available 12/01/2021 Have You Been To An Area Known To Be High Risk For COVID-19? No Information not available 12/01/2021 Are You Deaf Or Do You Have Serious Difficulty Hearing? No Information not available 01/09/2021 What Type Of Diet Are You Following? REGULAR Information n ot available 04/01/2020 Which Illicit Or Recreational Drugs Have You Used? None Information not available 01/04/2020 Are There Any Guns Present In Your Home? No Information not available 01/09/2021 Live Alone Or With Others? With Others Information not available 04/01/2020 What Was The Date Of Your Most Recent Tobacco Screening? 10/18/2024 Information not available 10/18/2024 What Is Your Relationship Status? Single Information not available 01/09/2021 Do You Use Your Seat Belt Or Car Seat Routinely? Yes Information not available 01/09/2021 Do You Have Smoke And Carbon Monoxide Detectors In Your Home? Yes Information not available 01/09/2021 Are You Passively Exposed To Smoke? Yes Information no t available 01/09/2021 How Much Tobacco Do You Smoke? 0.25 PPD [email or web address] Information not available 09/27/2023 Has Tobacco Cessation Counseling Been Provided? No Information not available 12/01/2021 On What Date Was Tobacco Cessation Counseling Provided? 10/18/2024 Information not available 10/18/2024 How Many Years Have You Smoked Tobacco? 20 [email or web address] Information not available 03/16/2019 Sex: Unknown Functional Status Question Answer Note LastModified by Organizat ion Details LastModified Time Do you use any illicit or recreational drugs? Yes marijuana [email or web address] Information not available 10/12/2022 Do you or have you ever used any other forms of tobacco or nicotine? No Information not available 12/01/2021 What is your level of alcohol consumption? None Information not available 01/04/2020 Do you or have you ever used smokeless tobacco? Never used smokeless tobacco Information not available 01/04/2020 Are you currently employed? No Information not available 04/01/2020 Are you able to care for yourself? Yes Information not available 04/01/2020 What is your occupation? Disability Information not available 04/01/2020 Do you or have you ever used e-cigarettes or vape? Never used electronic cigarettes Information not available 01/04/2020 Mental Status Question Answer Note LastModified by Organization D etails LastModified Time Do you feel stressed (tense, restless, nervous, or anxious, or unable to sleep at night)? [id number] Information not available 01/09/2021 Family History Relationship Description Onset Age of this Age Resolved Age Notes LastModified by Organization Details LastModified Time Mother Kidney disease [email or web address] Not available 02/17 16:01:12 Medical History Condition Response Coronary Artery Disease N Other N Atrial Fibrillation N High Blood Pressure N Thyroid Problems N Kidney or Bladder Problems N Depression Y COPD N Blood Clots N GI Problems Y Skin Problems Y Eating Disorder N Anemia N Heart Attack (RI) N Diabetes Y Anxiety Disorder N Muscle, Joint, or Bone Problems N Seizures/Epilepsy N Acid Reflux (GERD) N Cancer N Stroke N Allergies N Asthma N ADHD N Substance Abuse N High Cholesterol N Hepatitis N Liver Disease N Schizophrenia N Osteoporosis N Heart Failure N Immunizations Vaccine Type Date Status Note Provider Nam e and Address Organization Details Recorded Time influenza, unspecified formulation 9 completed Not Available [facility] 07/04/2023 20:40:43 COVID-19, mRNA, LNP-S, PF, 30 mcg/0.3 mL dose 1 completed Not Available [facility] 07/04/2023 20:40:43 COVID-19, mRNA, LNP-S, PF, 30 mcg/0.3 mL dose 1 completed Not Available [facility] 07/04/2023 20:40:43 Influenza, split virus, quadrivalent, preservative 0 completed Lizabeth Nieves MA [facility], [place] [facility] 06/04/2020 15:52:32 Past Encounters Encounter ID Performer Location Encounter Start Date Encounter Closed Date Diagnosis/Indication Diagnosis SNOMED-CT Code Diagnosis ICD10 Code Diagnosis Note [id number] Nayana Peterson PA-C [facility] [address] [place] [address] 03/16/2019 15:52:58 03/16/2019 16:29:51 Type 2 diabetes mellitus 06615610 E11.9 Hidradenit is suppurativa 12670855 L73.2 [id number] Nayana Peterson PA-C [facility] [address] [place] [address] 01/04/2020 10:45:28 01/07/2020 07:49:31 Type 2 diabetes mellitus 14963892 E11.9 [id number] Nayana Peterson PA-C [facility] [address] [place] [address] 04/01/2020 13:56:14 04/02/2020 11:45:35 Type 2 diabetes mellitus 50001165 E11.9 Cellulitis of left lower limb 2389071448 2322293 L03.967 [id number] Se Ram MD [facility] [address] [place] [address] 06/04/2020 15:21:14 06/04/2020 15:52:39 Type 2 diabetes mellitus without complication 054858111 E11.9 Type 2 kay betes mellitus 02134941 E11.9 Administra tion of influenza vaccine 88262225 Z23 [id number] Se Ram MD [facility] [address] [place] [address] 01/09/2021 10:24:15 01/12/2021 13:38:26 Hidradenitis suppurativa 72372257 L73.2 [id number] Nayana Peterson PA-C [facility] [address] [place] [address] 12/01/2021 15:04:09 12/01/2021 15:52:08 Type 2 diabetes mellitus 54750669 E11.9 Hidradenit is suppurativa 50861117 L73.2 Primary insomnia 6133422 F51.01 [id number] Se Ram MD [facility] [address] [place] [address] 01/05/2022 11:50:21 01/05/2022 12:28:46 Type 2 diabetes mellitus 66510377 E11.9 [id number] Nayana Peterson PA-C [facility] [address] [place] [address] 10/12/2022 14:24:10 10/13/2022 12:46:20 Type 2 diabetes mellitus 87806598 E11.9 Mixed hyperlipidemia 267 983976 E78.2 Seasonal a llergic rhinitis 544021953 J30.2 Overweight 553351431 E66 .3 [id number] Nayana Peterson PA-C [facility] [address] [place] [address] 07/26/2023 10:54:15 07/27/2023 09:55:19 Type 2 diabetes mellitus without complication 983381490 E11.9 Constipation 21430412 K5 9.09 Tobacco de pendence syndrome 60591294 F17.200 Overweight 798928029 E66 .3 [id number] Nayana Peterson PA-C [facility] [address] [place] [address] 09/27/2023 10:46:09 10/01/2023 12:06:56 Adult health examination 358320132 Z00.00 Type 2 kay betes mellitus 47159850 E11.9 Hidradenit is suppurativa 79558581 L73.2 Overweight 854374067 E66 .3 [id number] Nayana Peterson PA-C [facility] [address] [place] [address] 04/26/2024 14:45:21 05/03/2024 10:52:28 Type 2 diabetes mellitus 84738845 E11.9 Hidradenit is suppurativa 89337381 L73.2 Swelling of testicle 438 539848 N50.89 Overweight 493370211 E66 .3 [id number] Se Ram MD [facility] [address] [place] [address] 08/09/2024 14:24:27 08/13/2024 13:10:41 Type 2 diabetes mellitus 55579745 E11.9 Cellulitis of left lower limb 2918392344 8669819 L03.116 Constipation 39020444 K5 9.09 Type 2 kay betes mellitus without complication 155298932 E11.9 Hidradenit is suppurativa 09664654 L73.2 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 Gastroesop hageal reflux disease without esophagitis 202742537 K21.9 Essential hypertension 44318026 I10 Overweight 898183088 E66 .3 [id number] Se Ram MD [facility] [address] [place] [address] 10/18/2024 14:55:59 10/19/2024 11:04:05 Hidradenitis suppurativa 89192903 L73.2 cont prn..re evaluate after surgery Long-term drug therapy 462035639 Z79.891 Type 2 kay betes mellitus without complication 621405444 E11.9 cont current diabetic regimen Overweight 359032673 E66 .3 Health Concerns Section Related Observation LastModified by Organization Detai ls LastModified Time None Recorded Concern Status LastModified by Organization Details LastModified Time None Recorded Advance Directives Directive None Recorded Payers Insurance Date Sequence Insurance Name Policy Number Policy Barnes Covered Member ID Barnes Member ID Guarantor Name 10/17/2024 1 [facility] (MEDICARE REPLACEMENT/AD VANTAGE - PPO) [id number] Chago Cao [id number] Chago Cao 10/17/2024 2 [place] WHEN MED[place]ARE OR MEDICARE REPLACEMENT PRIMARY) Chago Cao [id number] Chago Cao 08/09/2024 1 [place] Ch[place] Cao [id number] Chago Cao 08/09/2024 [place] [facility] Chago Cao [id number] Chago Cao Notes Date Note Type Note Provider Name and Address Organization Details Recorded Time 07/26/2023 text/html has developed constipation for a month...sporadic large and very hard...no stool softener...also wants nicotine patch Nayana Peterson PA-C Attn: Accounting,[address] [facility], [place], [address], [facility] 07/26/2023 11:24:37 09/27/2023 text/html recheck on diabetes..started cosentyx...needs labs...cosentyx has made his BS elevated Nayana Peterson PA-C Attn: Accounting[address] [facility], [place], [address], [facility] - [facility] 09/27/2023 11:18:35 04/26/2024 text/html abscess on rt testicle..infectio n went to testicle..needs urology he was told Nayana Peterson PA-C Attn: Accounting, [address], [place], [address], [facility] - [facility] 04/26/2024 15:16:30 08/09/2024 text/html heart is beating irreg...fast then slow...getting heartburn now...denies N/V..denies chest pain or jaw pain..hx of diabetes htn..no family cardiac hx Lizabeth Nieves MA [facility], [place] - [facility] 08/09/2024 15:16:48 10/18/2024 text/html hx of hydranitis supprativa..has one last surgery..uses tramadol vs pain for this..moved out of [facility] and living independant..hx of diabetes uses lantus and metformin Nayana Peterson PA-C Attn: Accounting,[address], [place], [address], [facility] - [facility] 10/18/2024 15:51:51
--- OUTSIDE RECORDS SUMMARY | 2025-01-02 08:23 | XMS_ITS | Clinical Summary ---
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 Name Role Phone Dominic Peterson Primary Care Provider [phone] Allergies No known active allergies Medications ARIPiprazole (ABILIFY) 10 mg tabletIndication s:Mixed Bipolar I Disorder Take 1 tablet (10 mg total) by mouth nightly Active atorvastatin (LIPITOR) 20 mg tabletIndication s:hyperlipidemia Take 1 tablet (20 mg total) by mouth every morning Active metFORMIN (Glucophage) 500 mg tabletIndication s:type 2 diabetes mellitus Take 1 tablet (500 mg total) by mouth 2 (two) times a day Active multivitamin with iron tabletIndication s:Vitamin Deficiency,suppl ement Take 1 tablet by mouth every morning Active traZODone (DESYREL) 100 mg tabletIndication s:insomnia associated with depression Take 1 tablet (100 mg total) by mouth nightly 3 Active docusate sodium (COLACE) 100 mg capsuleIndicatio ns:constipation Take 1 capsule (100 mg total) by mouth every morning Active sertraline (ZOLOFT) 100 mg tabletIndication s:Anxiety with Depression Take 1 tablet (100 mg total) by mouth every morning Active doxycycline (ADOXA) 100 mg tablet Take 1 tablet (100 mg total) by mouth 2 (two) times a day Active senna-docusate (PERICOLACE) 8.6-50 mg Take 1 tablet by mouth daily 20 tablet 4 Active OneTouch Ultra Test strip 4 Active Tab-A-Jovi Multivitamin w-iron 15 mg iron- 400 mcg tablet 4 Active omeprazole (PriLOSEC) 40 mg capsule 4 Active ibuprofen (ADVIL,MOTRIN) 600 mg tablet Take 1 tablet (600 mg total) by mouth every 6 (six) hours as needed for pain 30 tablet 4 Active acetaminophen (TYLENOL) 500 mg tablet 4 Active OneTouch Delica Plus Lancet 33 gauge misc TEST TWICE A DAY (E11.9), 4 Active linezolid (ZYVOX) 600 mg tablet 4 Active traMADoL (ULTRAM) 50 mg tablet 4 Active LANTUS 100 unit/mL (3 mL) pen for injection 4 Active nystatin creamIndications :Hidradenitis suppurativa of multiple sites Apply topically 2 (two) times a day 30 g 1 4 06/12/20 25 Active clindamycin (CLEOCIN T) 1 % lotion Apply to groin and axillae daily PRN 60 mL 11 5 Active doxycycline (VIBRAMYCIN) 100 mg capsule Take 1 tablet/capsul e (100 mg total) by mouth 2 (two) times a day 60 tablet/capsu le 5 5 Active insulin lispro (HumaLOG) 100 unit/mL injection Inject under the skin 3 (three) times a day before meals. 02/23/20 22 Discontin ued(Satinderu alyssa change) Active Problems Problem Noted Date Diagnosed Date Hidradenitis suppurativa of multiple sites 12/20 Axillary hidradenitis suppurativa 12/24/2022 Grief reaction 12/08/2017 Homeless single person 12/08/2017 Depression, major, recurrent, moderate 8 Chest pain 12/02/2017 Sepsis 12/02/2017 Encounters Date Type Department Care Team Description 12/05/2024 Telephone [facility] Surgery [address] [place] [address] 6th [place] [address] Tiarra Batista Scheduling 11/30/2024 9:45 AM CDT Office Visit [facility] 6th [place] [address] [place] [address] Josh Gruber MD Hidradenitis suppurativa of multiple sites (Primary Dx); Hidradenitis suppurativa 11/26/2024 Orders Only [facility] Dermatology [address] [facility] [address] [place] [address] Nick Llanos MD from Last 3 Months Immunizations Immunization Administration Dates Next Due Influenza, Quadrivalent, Spl it, Intramuscular 06/04/2020,05/01/2019 Influenza, Quadrivalent, Spl it, Preservative Free, Intramuscular 05/25/2023,04/25/2022,05/28/2021,03/31 Surgical History Surgery Date Site/Laterality Comments COLONOSCOPY 12/16/2018 - 01/14/2019 ESOPHAGOGASTRODUODENOSCOPY 12/2018 and 04/2019 AXILLARY HIDRADENITIS EXCISION 01/15/2023 - 02/14/2023 Bilateral Medical History Medical History Date Comments Diabetes mellitus (HCC) Type II DM dxd 2011 GERD (gastroesophageal reflux disease) Hidradenitis axillaris Hyperlipidemia Treated with sta tin Type 2 diabetes mellitus (HCC) Family History Medical History Relation Name Comments Anesthesia problems Neg Hx Social History Tobacco Use Types Packs/Day Years Used Date Smoking Tobacco: Former Cigarettes 1 20.3 2 003 - 10/18/2022 Passive Smoke Exposure: Past Smokeless Tobacco: Never Alcohol Use Standard Drinks/Week Comments No 0 (1 standard drink = 0.6 oz pur e alcohol) OASIS D0700: Social Isolation Answer Da te Recorded Frequency of experiencing loneliness or isolatio n Never 01/05/2023 AUDIT-C Answer Date Recorded Q1: How often do you have a drink containing alcohol? Never 02/21/2024 Q2: How many drinks containi ng alcohol do you have on a typical day when you are drinking? Patient does not drink Q3: How often do you have si x or more drinks on one occasion? Never 02/21/2024 Personal Safety Answer Date Recorded Have you ever been in or are you currently in a harmful physical or emotional relationship or is someone making you feel afraid or unsafe? Denies 02/21/2024 Sex and Gender Information Value Date Recorded Sex Assigned at Not on file Legal Sex Male 9:43 AM CDT Gender Identity Male 11/11/2023 4:04 PM CDT Sexual Orientation Straight 11/11/2023 4: 04 PM CDT Obstetrics History Last Filed Vital Signs Vital Sign Reading Time Taken Comments Blood Pressure 99/63 02/23/2024 11:47 AM CDT Pulse 76 02/23/2024 11:47 AM CDT Temperature 37 C (98.6 F) 02/23/2024 11:47 AM CDT Respiratory Rate 22 02/23/2024 11:47 AM CDT Oxygen Saturation 90% 02/23/2024 11:47 AM CDT Inhaled Oxygen Concentration - - Weight 95.3 kg (210 lb) 02/21/2024 12:05 PM CDT Height 180.3 cm (5' 11) 02/21/2024 12:05 PM CDT Body Mass Index 29.29 02/21/2024 12:05 PM CDT Plan of Treatment Health Maintenance Due Date Last Done Comments Colon Cancer Screening-Colonoscopy 1976 Depression Screening 1976 DTaP/Tdap/Td Vaccine (1 - Tdap) 1987 Hepatitis B Screening 1994 Regular Well Visit/Exam 18-64 1994 Covid-19 Vaccine ( season) 2024 07/16/2021, 09/25/2020, 09/05/2020 Influenza Vaccine (Season Ended) 2025 05/25/2023, 04/25/2022, 05/28/2021, Additional history exists Hepatitis C Screening Completed 07/14/2022, 022 Pneumococcal vaccine <65 Aged Out No longer eligible based on patient's age to complete this topic Procedures Procedure Name Priority Date/Time Associated Diagnosis Comments HEPATITIS C ANTIBODY Routine 07/14/2022 10:35 AM [employer]PERATOR [employer] from Last 3 Months or Most Recently Relevant to Health Maintenance Results * Hepatitis C antibody (07/14/2022 10:35 AM OPERATOR [employer]) Hep C Ab Nonreactive Nonreactive [facility] Comment: Interpretive Data Nonreactive: Antibodies to HCV not detected. Does NOT exclude the possibility of recent exposure to HCV. Equivocal: Equivocal for HCV antibodies. Supplemental molecular testing will be automatically performed to determine infection status in accordance with current CDC screening recommendations. Reactive: Positive for HCV antibodies. This may represent current or past HCV infection. Supplemental molecular testing will be automatically performed to determine current infection status in accordance with current CDC screening recommendations. Interpretive data was last revised on 2019. Blood 07/14/2022 10:3 5 AM [employer] 07/14/2022 1:53 PM [facility] us Nick Llanos MD LAB MICROBIOLOGY - [facility] ORDERABLES Edited Result - Final [facility] [address] [place] [address] from Last 3 Months or Most Recently Relevant to Health Maintenance Insurance MEDICARE IDPA IDPA [facility] MEDICARE ADVANTAGE [place] [id number] [place] Member Subscriber Plan / Payer (Ef fective 2021-Present) Name:Chago Cao Relation to Subscriber:Self Name:Chago Cao Payer ID:[id number] (NAIC) Type:MEDICARE RISK OTHER Address: [place] [id number] [facility] MEDICARE ADVANTAGE Advance Directives For more information, please contact: [phone] * Full Code (Latest Code Status on File) Date Activated Date Inactivated Comments 02/21/2024 11:02 AM 02/23/2024 6:13 PM Care Teams Sewage Plant Operator Relationship Specialty Start Date End Date Dominic Peterson PA [address] [place] [address] PCP - General Family Practice 05/11/22
--- OUTSIDE RECORDS SUMMARY | 2025-01-02 08:23 | XMS_ITS | Referral Summary ---
Author Organization [facility] Address [address] [place] [address] Care Team Providers Care Lay Up Operator Name Role Phone Dominic Peterson Primary Care Provider [phone] Encounters Date Type Department Care Team Description 12/05/2024 Telephone [facility] Surgery [address] [facility] Advanced Medicine 6th [place] [address] Tiarra Batista Scheduling 11/30/2024 9:45 AM CDT Office Visit [facility] Surgery [address] [facility] 6th [place] [address] Josh Gruber MD Hidradenitis suppurativa of multiple sites (Primary Dx); Hidradenitis suppurativa 11/26/2024 Orders Only [facility] Dermatology [address] [place] [address] [address] [place] [address] Nick Llanos MD from Last 3 Months Allergies No known active allergies Medications ARIPiprazole [...] a day before meals. 02/23/20 22 Discontin ued(Chuy shah change) Active Problems Problem Noted Date Diagnosed Date Hidradenitis suppurativa of multiple sites 12/20 Axillary hidradenitis suppurativa 12/24/2022 Grief reaction 12/08/2017 Homeless single person 12/08/2017 Depression, major, recurrent, moderate 8 Chest pain 12/02/2017 Sepsis 12/02/2017 Immunizations Immunization Administration Dates Next Due Influenza, Quadrivalent, Spl it, Intramuscular 06/04/2020,05/01/2019 Influenza, Quadrivalent, Spl it, Preservative Free, Intramuscular 05/25/2023,04/25/2022,05/28/2021,03/31 Social History Tobacco Use Types Packs/Day Years [...] Orientation Straight 11/11/2023 4: 04 PM CDT Last Filed Vital Signs Vital Sign Reading [...] 02/21/2024 12:05 PM CDT Plan of Treatment Not on file Procedures Procedure Name Priority Date/Time Associated Diagnosis Comments HEPATITIS C ANTIBODY Routine 07/14/2022 10:35 AM SOLUTION MAKE UP OPERATOR from Last 3 Months or Most Recently Relevant to Health Maintenance Results * Hepatitis C antibody (07/14/2022 10:35 AM SOLUTION MAKE UP OPERATOR) Hep C Ab Nonreactive Nonreactive [facility] Comment: Interpretive Data Nonreactive: Antibodies [...] on 2019. Blood 07/14/2022 10:3 5 AM SOLUTION MAKE UP OPERATOR 07/14/2022 1:53 PM SOLUTION MAKE UP OPERATOR Nick Llanos MD LAB MICROBIOLOGY - GENERA L ORDERABLES Edited Result - Final [facility] [address] Department [place] [address] from Last 3 Months or Most Recently Relevant to Health Maintenance Insurance MEDICARE IDPA IDPA [facility] MEDICARE ADVANTAGE [facility] DUAL COMPLETE OOS [id number] [place] [address] [facility] MEDICARE ADVANTAGE Advance Directives For more information, please contact: [phone] * Full Code (Latest Code Status on File) Date Activated Date Inactivated Comments 02/21/2024 11:02 AM 02/23/2024 6:13 PM Care Teams Lay Up Operator Relationship Specialty Start Date End Date Dominic Peterson PA [address] [place] [address] PCP - General Family Practice 05/11/22
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
--- NOTE | 2025-01-02 08:24 | ED.HA ---
HPI - Headache General Chief Complaint: Headache Stated Complaint: headache Time Seen by Provider: 01/02/25 08:23 Source: patient Mode of arrival: ambulatory Limitations: no limitations History of Present Illness HPI Narrative: 47-year-old male a history of diabetes, dyslipidemia, hidradenitis suppurative, depression presents to the ED with a 6 day history of -- left frontal headache which is continuous. -- Nasal congestion with pain over the left maxillary sinus. No nasal discharge. -- Left ear pain -- cough which is nonproductive. MD elicited complaint: headache Onset (ago): day(s) ( Six days) Onset description: gradually Location: left and frontal Severity: moderate Quality & Timing: aching Exacerbating factors: none Relieving factors: nothing Context: occurred at rest Associated symptoms: other ( left maxillary sinus pain with nasal congestion) Treatments prior to arrival: none Related Data Home Medications ?Medication ?Instructions ?Recorded ?Confirmed ?Last Taken ?Type acetaminophen 500 mg capsule 500 mg PO TID PRN Pain (Scale 02/15/23 02/18/23 Unknown History (Mapap (acetaminophen)) Score 1-3) aripiprazole 10 mg tablet 10 mg PO HS 02/15/23 02/18/23 Unknown History atorvastatin 20 mg tablet 20 mg PO DAILY 02/15/23 02/18/23 Unknown History bisacodyl 10 mg rectal suppository 10 mg RECTAL DAILY PRN Constipation 02/15/23 02/18/23 Unknown History (Dulcolax (bisacodyl)) guaifenesin 100 mg/5 mL oral liquid 200 mg PO Q4H PRN Cough 02/15/23 02/18/23 Unknown History ibuprofen 400 mg tablet 600 mg PO TID 02/15/23 02/18/23 Unknown History insulin detemir U-100 100 unit/mL 40 unit subcut HS 02/15/23 02/18/23 Unknown History (3 mL) subcutaneous pen (Levemir FlexPen) metformin 500 mg tablet 500 mg PO BID 02/15/23 02/18/23 Unknown History omeprazole 40 mg capsule,delayed 40 mg PO BID 02/15/23 02/18/23 Unknown History release oxycodone 5 mg tablet 5 mg PO Q12H PRN Pain (Scale Score 02/15/23 02/18/23 Unknown History 7-10) sertraline 100 mg tablet 100 mg PO HS 02/15/23 02/18/23 Unknown History tadalafil 20 mg tablet 20 mg PO DAILY PRN Erectile 02/15/23 02/18/23 Unknown History Dysfunction tramadol 50 mg tablet 50 mg PO Q8H PRN Pain (Scale Score 02/15/23 02/18/23 Unknown History 4-6) trazodone 100 mg tablet 100 mg PO HS 02/15/23 02/18/23 Unknown History clindamycin phosphate 1 % lotion 1 applic topical DAILY 04/23/24 04/23/24 Unknown History doxycycline hyclate 100 mg capsule 100 mg PO BID 04/23/24 04/23/24 Unknown History ketoconazole 2 % topical cream 1 applic topical BID 04/23/24 04/23/24 Unknown History multivitamin-iron sulfate 15 1 tablet PO DAILY 04/23/24 04/23/24 Unknown History mg-folic acid 400 mcg tablet (Tab-A-Jovi Multivitamin w-iron) nicotine 7 mg/24 hr daily 1 patch topical DAILY 04/23/24 04/23/24 Unknown History transdermal patch nystatin 100,000 unit/gram topical 1 unit topical BID 04/23/24 04/23/24 Unknown History cream Allergies Allergy/AdvReac Type Severity Reaction Status Date / Time vancomycin AdvReac Other Verified 01/02/25 08:19 Review of Systems Review of Systems: All systems reviewed & are unremarkable except as noted in HPI and below Constitutional: Constitutional: Reports as per HPI and Reports no additional constitutional complaints Eyes: Eyes: Reports as per HPI and Reports no additional eye complaints ENT: Reports system reviewed and no additional complaints, except as documented, Reports as per HPI and Reports nasal congestion Comments: left maxillary sinus pain Cardiovascular: Cardiovascular: Reports as per HPI and Reports no additional cardiovascular complaints Respiratory: Respiratory: Reports as per HPI and Reports no additional respiratory complaints Gastrointestinal: Gastrointestinal: Reports as per HPI and Reports no additional gastrointestinal complaints Genitourinary: Genitourinary: Reports no additional male genitourinary complaints and Reports as per HPI Musculoskeletal: Musculoskeletal: Reports no additional musculoskeletal complaints and Reports as per HPI Integumentary/Breasts: Skin/Breast: Reports system reviewed and no additional complaints, except as docu and Reports as per HPI Neurologic: Reports system reviewed and no additional complaints, except as documented and Reports as per HPI Psychiatric: Psychiatric: Reports no additional psychiatric complaints, Reports as per HPI and Reports depression Endocrine: Endocrine: Reports no additional endocrine complaints and Reports as per HPI Hematologic/Lymphatic: Hematologic/Lymphatic: Reports no additional hematologic/lymphatic complaints and Reports as per HPI Allergic/Immunologic: Allergic/Immunologic: Reports no additional allergic/immunologic complaints and Reports as per HPI Exam Narrative: afebrile. Const: General: healthy appearing and no acute distress Nutritional Appearance: well nourished Orientation/consciousness: patient oriented x3 Limitations: no limitations HENMT: Head: normal to inspection Ears: external ears normal Face/Nose/Sinus: Normal external nose present Face and sinus: sinus tenderness ( Tenderness over the left maxillary sinus) maxillary Mouth: Yes Normal oral and palatal mucosa present Throat: posterior oropharynx normal Eyes: Conjunctivae: conjunctivae normal Pupils: Equal, round and reactive pupils present EOM: EOMs intact bilaterally Direct Ophthalmoscopy: no photophobia Neck: Neck: normal visual inspection, no lymphadenopathy and no meningeal signs Chest: Chest palpation & inspection: normal inspection of the chest Resp: Effort & Inspection: normal respiratory effort Auscultation: clear to auscultation bilaterally Cardio: Rate: regular rate Rhythm: regular rhythm GI: GI Palp: Yes Soft to palpation Auscultation: normal bowel sounds Other: no tenderness/rigidity / rebound. : General: Yes no CVA tenderness Back/Spine/Pelvis: Back: no CVA tenderness Skin: General skin exam: normal color Rashes: no rashes Wounds: no wounds Neuro: General: patient oriented x3, moves all extremities, no meningeal signs, no focal motor deficits and CN's II-XI intact bilaterally Cranial nerves: Yes Nystagmus not present Speech: normal speech Gait exam (Neuro): Normal gait present Extrem: General: normal to inspection and no clubbing, cyanosis or edema Psych: Mental Status: mental status grossly normal Affect: normal affect Attitude: cooperative Course Course Emergency Course: Maxillary sinusitis headache Vital Signs Vital signs: Vital Signs Temperature 36.2 C L 01/02/25 08:13 Pulse Rate 77 01/02/25 08:13 Respiratory Rate 16 01/02/25 08:13 Blood Pressure 123/88 01/02/25 08:13 Pulse Oximetry 92 01/02/25 08:13 Oxygen Delivery Room Air 01/02/25 08:13 Temperature 36.2 C L 01/02/25 08:13 Pulse Rate 77 01/02/25 08:13 Respiratory Rate 16 01/02/25 08:13 Blood Pressure 123/88 01/02/25 08:13 Pulse Oximetry 92 01/02/25 08:13 Oxygen Delivery Room Air 01/02/25 08:13 MDM - Headache MDM Narrative Medical decision making narrative: maxillary sinusitis headache Differential Diagnosis Differential diagnosis: Likely migraine and tension headache Medical Records Attestation: I reviewed the patient's medical records. Lab Data Attestation: I reviewed the patient's lab results. Discharge Plan Discharge Clinical Impression: Headache, Maxillary sinusitis, acute Patient Disposition: Home Condition: Stable Instructions: Antibiotic Form, Sinusitis (ED), Acute Headache (ED) Patient Language: Divehi Prescriptions: New loratadine [Claritin] 10 mg tablet 10 mg PO DAILY Qty: 14 0RF amoxicillin-pot clavulanate 875-125 mg tablet 1 tablet PO Q12H Qty: 14 0RF No Action metformin 500 mg tablet 500 mg PO BID atorvastatin 20 mg tablet 20 mg PO DAILY sertraline 100 mg tablet 100 mg PO HS omeprazole 40 mg capsule,delayed release(DR/EC) 40 mg PO BID trazodone 100 mg tablet 100 mg PO HS ibuprofen 400 mg tablet 600 mg PO TID oxycodone 5 mg tablet 5 mg PO Q12H PRN (Reason: Pain (Scale Score 7-10)) aripiprazole 10 mg tablet 10 mg PO HS Levemir FlexPen 100 unit/mL (3 mL) insulin pen 40 unit SUBCUT HS tramadol 50 mg Tablet 50 mg PO Q8H PRN (Reason: Pain (Scale Score 4-6)) guaifenesin [Robafen] 100 mg/5 mL Liquid 200 mg PO Q4H PRN (Reason: Cough) bisacodyl [Dulcolax (bisacodyl)] 10 mg Suppository 10 mg RECTAL DAILY PRN (Reason: Constipation) acetaminophen [Mapap (acetaminophen)] 500 mg Capsule 500 mg PO TID PRN (Reason: Pain (Scale Score 1-3)) tadalafil 20 mg Tablet 20 mg PO DAILY PRN (Reason: Erectile Dysfunction) Rx Instructions: administer approximately 30min before sexual activity; do not use more than 1 dose per 24hrs doxycycline hyclate 100 mg capsule 100 mg PO BID nystatin 100,000 unit/gram cream 1 unit TOPICAL BID ketoconazole 2 % cream 1 applic TOPICAL BID nicotine 7 mg/24 hr patch 24 hour 1 patch topical DAILY clindamycin phosphate 1 % lotion 1 applic TOPICAL DAILY Tab-A-Jovi Multivitamin w-iron 15 mg iron- 400 mcg tablet 1 tablet PO DAILY clindamycin HCl 300 mg capsule 300 mg PO Q6H Qty: 40 0RF Follow-up/Referrals: Se Stinson MD [Primary Care Provider] - Stand Alone Forms: Work/School Release IP Time of Disposition: 08:38
[2025-01-02] MEDS: KETOROLAC 30 MG/ML VIAL (*BKC) IM (08:46)
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
--- OUTSIDE RECORDS SUMMARY | 2025-01-02 09:05 | XMS_ITS | Referral Summary ---
Author Organization [facility] Address [address] [place] [address] Care Team Providers Care Physicist [place] Name Role Phone Dominic Peterson Primary Care Provider [phone] Encounters Date Type Department Care Team Description 12/05/2024 Telephone [facility] Surgery [address] [facility] 6th [place] [address] Tiarra Batista Scheduling 11/30/2024 9:45 AM CDT Office Visit [facility] Surgery [address] [facility] 6th [place] [address] Josh Gruber MD Hidradenitis suppurativa of multiple sites (Primary Dx); Hidradenitis suppurativa 11/26/2024 Orders Only [facility] Dermatology [address] [place] [address] [address] [place] [address] Nick Llanos MD from Last [...] HEPATITIS C ANTIBODY Routine 07/14/2022 10:35 AM RECORDS ASSISTANT from Last 3 Months or Most Recently Relevant to Health Maintenance Results * Hepatitis C antibody (07/14/2022 10:35 AM RECORDS ASSISTANT) Hep C Ab Nonreactive Nonreactive [facility] Comment: Interpretive Data Nonreactive: Antibodies to HCV [...] on 2019. Blood 07/14/2022 10:3 5 AM RECORDS ASSISTANT 07/14/2022 1:53 PM RECORDS ASSISTANT Nick Llanos MD LAB MICROBIOLOGY - GENERA L ORDERABLES Edited Result - Final [facility] [address] Department [place] [address] from Last 3 Months or Most Recently Relevant to Health Maintenance Insurance MEDICARE IDPA IDPA [facility] MEDICARE ADVANTAGE [facility] DUAL COMPLETE [place] [id number] [place] [facility] MEDICARE ADVANTAGE Advance Directives For more information, please contact: [phone] * Full Code (Latest Code Status on File) Date Activated Date Inactivated Comments 02/21/2024 11:02 AM 02/23/2024 6:13 PM Care Teams Physicist [place] Relationship Specialty Start Date End Date Dominic Peterson PA [address] [place] [address] PCP - General Family Practice 05/11/22
--- OUTSIDE RECORDS SUMMARY | 2025-01-02 09:05 | XMS_ITS | Clinical Summary ---
Author Organization [facility] Address [address] [place] [address] Care Team Providers Care Sports Therapist Name Role Phone Dominic Peterson Primary Care Provider [phone] Allergies No known active allergies Medications ARIPiprazole [...] Type Department Care Team Description 12/05/2024 Telephone [facility] Surgery [address] [place] [address] 6th [place] [address] Tiarra Batista Scheduling 11/30/2024 9:45 AM CDT Office Visit [facility] 6th [place] [address] Josh Gruber MD Hidradenitis suppurativa of multiple sites (Primary Dx); Hidradenitis suppurativa 11/26/2024 Orders Only [facility] Dermatology [address] [facility] [address] [address] [place] [address] Nick Llanos MD from Last 3 Months [...] HEPATITIS C ANTIBODY Routine 07/14/2022 10:35 AM CURING OVEN TENDER from Last 3 Months or Most Recently Relevant to Health Maintenance Results * Hepatitis C antibody (07/14/2022 10:35 AM CURING OVEN TENDER) Hep C Ab Nonreactive Nonreactive [facility] Comment: Interpretive Data Nonreactive: Antibodies to [...] on 2019. Blood 07/14/2022 10:3 5 AM CURING OVEN TENDER 07/14/2022 1:53 PM CURING OVEN TENDER us Nick Llanos MD LAB MICROBIOLOGY - [facility] L ORDERABLES Edited Result - Final [facility] [address] Department [place] [address] from Last 3 Months or Most Recently Relevant to Health Maintenance Insurance MEDICARE IDPA IDPA [facility] MEDICARE [facility]ANTAGE [facility] Address: [facility] [address] [id number] [place] Member Subscriber Plan / Payer (Ef fective 2021-Present) Name:Chago Cao Relation to Subscriber:Self Name:Chago Cao Payer ID:[id number] (NAIC) Type:MEDICARE RISK OTHER Address: [address] [phone] [facility] MEDICARE [facility]ANTAGE [facility] Address: [address] [address] [place] [address] Advance Directives For more information, please contact: [phone] * Full Code (Latest Code Status on File) Date Activated Date Inactivated Comments 02/21/2024 11:02 AM 02/23/2024 6:13 PM Care Teams Sports Therapist Relationship Specialty Start Date End Date Dominic Peterson PA [address] [place] [address] PCP - General Family Practice 05/11/22
== END 2025-01-02 09:05 | disposition home or self-care (01) ==
LOC: CHSED 08:42
PROVIDERS: Emergency Provider Internal Medicine Critical Care Medicine; PCP Family Medicine
DX: J01.00 Acute maxillary sinusitis, unspecified (principal); R51.9 Headache, unspecified; E11.9 Type 2 diabetes mellitus without complications; E78.5 Hyperlipidemia, unspecified
CPT/HCPCS: 96372; 99283; J1885

== ENCOUNTER 2025-02-04 09:57 | Outpatient (CLI) | payer MEDICARE, MEDICAID, SELFPAY ==
--- OUTSIDE RECORDS SUMMARY | 2025-02-04 10:07 | XMS_ITS | Clinical Summary ---
Author Organization [facility] Address [address] [place] [address] Care Team Providers Care Manager Hi Name Role Phone Attila Briggs MD Primary Care Provider [phone] Allergies Active Allergy Reactions Criticality Noted Date Comments Vancomycin Unknown 12/28/2018 Medications aripiprazole 10 MG tablet Take 10 mg by mouth daily. Active acidophilus-spo rogenes tablet Take 1 tablet by mouth daily. Active sertraline 100 MG tablet Take 100 mg by mouth daily. Active trazodone 50 MG tablet Take 50 mg by mouth nightly at bedtime. Active insulin detemir 100 UNIT/ML flextouch PEN Inject 30 Units into the skin nightly at bedtime. Active diclofenac potassium 50 MG tablet Take 50 mg by mouth 2 (two) times daily. Active QUEtiapine 100 MG tablet Take 100 mg by mouth 2 (two) times daily. 04/10/2018 Active traMADol 50 MG tablet Take 50 mg by mouth every 6 (six) hours as needed for Pain. 12/12/2018 Active Active Problems Problem Noted Date Diagnosed Date Grief reaction 12/08/2017 Homeless single person 12/08/2017 Depression, major, recurrent, moderate 8 Chest pain 12/02/2017 Sepsis ([facility]) 12/02/2017 Resolved Problems Problem Noted Date Diagnosed Date Resolved Date Suicidal ideation 12/07/2017 12/08/2017 Family History Medical History Relation Comments Cancer Mother Kidney Disease Mother Relation Status Comments Mother Social History Tobacco Use Types Packs/Day Years Used Date Smoking Tobacco: Former Cigarettes 1 20 0 08/1997 - 08/2017 Electronic Cigarettes Smokeless Tobacco: Never Alcohol Use Standard Drinks/Week Comments No 0 (1 standard drink = 0.6 oz pure alcohol) States alcohol free x 3 years, Former alcoholic. Sex and Gender Information Value Date Recorded Sex Assigned at Not on file Legal Sex Male 1:11 PM CDT Gender Identity Not on file Sexual Orientation Not on file Last Filed Vital Signs Vital Sign Reading Time Taken Comments Blood Pressure 111/68 05/15/2019 8:40 AM CDT Pulse 71 05/15/2019 8:40 AM CDT Temperature 36.6 C (97.8 F) 05/15/2019 8:40 AM CDT Respiratory Rate 16 05/15/2019 8:40 AM CDT Oxygen Saturation 100% 05/15/2019 8:40 AM CDT Inhaled Oxygen Concentration - - Weight 73.5 kg (162 lb) 05/09/2019 9:59 AM CDT Height 180.3 cm (5' 11) 05/09/2019 9:59 AM CDT Body Mass Index 22.59 05/09/2019 9:59 AM CDT Plan of Treatment Health Maintenance Due Date Last Done Comments Colorectal Cancer Screening Colonoscopy (10 Years) 1976 Annual Physical 1979 Hepatitis C 1994 DTaP, Tdap and Td Vaccines ( 1 - Tdap) 1995 Hepatitis B Vaccines (1 of 3 - 19+ 3-dose series) 1995 COVID-19 Vaccine (2023-2 5 season) 2024 Meningococcal B Vaccine Aged Out No l onger eligible based on patient's age to complete this topic Meningococcal Vaccine Aged Out No shannon phyllis eligible based on patient's age to complete this topic Pneumococcal Vaccine: Pediat rics (0 to 5 Years) and At-Risk Patients (6 to 49 Years) Aged Out No longer eligible b ased on patient's age to complete this topic RSV Immunizations Under 20 Months Aged Out No longer eligible based on patient's age to complete this topic Insurance MEDICARE MEDICAID Advance Directives Documents on File Type Date Recorded Patient Gyn Physician Expl anation Advance Directives and Living Will 12/10/2017 12:00 AM ADVANCED DIRECTIVES * Full Code (Latest Code Status on File) Date Activated Date Inactivated Comments 12/02/2017 4:45 PM 12/10/2017 7:28 PM Care Teams Manager Hi Relationship Specialty Start Date End Date Attila Briggs MD [address] [place] [address] PCP - General INTERNAL MEDICINE 01/02/19
--- OUTSIDE RECORDS SUMMARY | 2025-02-04 10:07 | XMS_ITS | Data Portability ---
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 Plan of Treatment Reminders Order Date Submit Date Provider Last Modified By Organization Details Last Modified Time Details Appointments None recorded. Lab CBC 2024 025 [email or web address] [facility], [address] [place] [address], [address], 12:31:53 CMP, serum or plasma 2024 025 [email or web address] [facility], [address] [place] [address], [address], 12:31:53 lipid panel, serum 2024 025 [email or web address] [facility], [address] [place] [address], [address], 12:31:53 hemoglobi n A1c, QN, blood 2024 025 [email or web address] [facility], [address] [place] [address], [address], 5 12:31:53 CBC 2024 025 MARY [facility], [address] [place] [address] [place], [address], 5 10:10:42 CMP, serum or plasma 2024 025 MARY [facility], [address], [place], [address], 5 10:10:41 lipid panel, serum 2024 025 MARY [facility], [address], [place], [address], 5 10:10:40 HbA1c (hemoglob in A1c), blood 2024 025 MARY In-Office Order, Internal Use Only DO Not Attach Compendium DO Not Attach Compendium, Do Not Delete/merge, [id number] 5 15:16:11 HbA1c (hemoglob in A1c), blood 2023 024 [email or web address] In-Office Order, Internal Use Only DO Not Attach Compendium DO Not Attach Compendium, Do Not Delete/merge, [id number] 4 15:55:03 CBC 2023 024 MARY [facility], [address], [place], [address], 4 09:21:16 CMP, serum or plasma 2023 024 MARY [facility], [address], [place], [address], 4 09:21:14 lipid panel, serum 2023 024 MARY [facility], [address], [place], [address], 4 09:21:14 HbA1c (hemoglob in A1c), blood 2023 024 MARY In-Office Order, Internal Use Only DO Not Attach Compendium DO Not Attach Compendium, Do Not Delete/merge, [id number] 4 12:17:53 HbA1c (hemoglob in A1c), blood 2023 024 [facility] In-Office Order, Internal Use Only DO Not Attach Compendium DO Not Attach Compendium, Do Not Delete/merge, [id number] 4 11:21:12 Referral urologist referral 2023 024 akin Diaz MD, [address] [facility] [address], [place], [address], 5 11:03:52 Procedures None recorded. Surgeries None recorded. Imaging None recorded. Medication Orders tramadol 50 mg tablet 2024 025 [facility]acy #[id number], [address] [place], [address], 5 15:50:31 tramadol 50 mg tablet 2024 025 [facility]/Pharmacy #[id number], [address] [place], [address], 5 15:02:48 atorvasta tin 20 mg tablet 2024 025 [facility]/Pharmacy #[id number], [address] [place], [address], 5 15:43:14 metformin 500 mg tablet 2024 025 [facility]/Pharmacy #[id number], [address] [place], [address], 5 15:02:34 OneTouch Ultra Test strips 2024 025 [facility]/Pharmacy #[id number], [address] [place], [address], 5 15:02:37 sertralin e 100 mg tablet 2024 025 [facility]acy #[id number], [address] [place], [address], 5 15:44:22 trazodone 100 mg tablet 2024 025 [id number] [address] [place], [address], 5 15:02:35 Stool Softener 100 mg capsule 2024 025 [id number] [address] [place], [address], 5 15:03:02 omeprazol e 40 mg capsule,d elayed release 2024 025 [id number] [address] [place], [address], 5 15:02:37 clindamyc in HCl 300 mg capsule 2024 025 [id number] [address] [place], [address], 5 15:04:43 Lantus Solostar U-100 Insulin 100 unit/mL (3 mL) subcutane ous pen 2024 025 [id number], [address] [place], [address], 5 16:23:37 tramadol 50 mg tablet 2023 024 [employer], [address], [place], [address], 4 15:15:52 nicotine 7 mg/24 hr daily transderm al patch 2023 024 [employer], [address], [place], [address], 5 14:39:31 Stool Softener 100 mg capsule 2023 024 [employer] [facility], [address], [place], [address], 11:22:19 Patient TargetsNo targets recorded. Patient Instructions Encounter Date Encounter Id Patient Instructions Last Modified By Organization Details Last Modified Time 07/26/2023 [id number] deciding about using medicines to quit smoking jnanney Not available 07/26/2023 11:21:10 Quitting Tobacco : Care Instructions jnanney Not available 07/26/2023 11:21:10 constipation: care instructions jnanney Not available 07/26/2023 11:21:10 A healthy lifestyle: care instructions jnanney Not available 07/26/2023 11:21:10 type 2 diabetes: care instructions jnanney Not available 07/26/2023 11:21:10 09/27/2023 [id number] A healthy lifestyle: care instructions jnanney Not available 09/27/2023 11:17:40 learning about type 2 diabetes jnanney Not available 09/27/2023 11:17:40 type 2 diabetes: care instructions jnanney Not available 09/27/2023 11:17:40 04/26/2024 [id number] A healthy lifestyle: care instructions jnanney Not available 04/26/2024 15:16:19 learning about type 2 diabetes jnanney Not available 04/26/2024 15:55:03 type 2 diabetes: care instructions jnanney Not available 04/26/2024 15:55:03 08/09/2024 [id number] A healthy lifestyle: care instructions jnanney Not available 08/09/2024 15:02:23 learning about high blood pressure jnanney Not available 08/09/2024 15:02:23 10/18/2024 [id number] A healthy lifestyle: care instructions jnanney Not available 10/18/2024 15:50:28 type 2 diabetes: care instructions jnanney Not available 10/18/2024 15:50:28 Reason for Referral Urologist Referral for Swell ing of testicle Referring Physician: Nayana Peterson, Family Medicine, Encounter Date: 04/26/2024 Results Created Date Observation Date Name Description Value Unit Range Abnormal Flag Note LastModifiedBy Organization Detail LastModifiedTime 07/26/1907/26/2023 HbA1c (hemo globi n A1c), blood HbA1c 6.6 Not Available In-Office Order Internal Use Only DO Not Attach Compendium DO Not Attach Compendium, Do Not Delete/merge, [id number] 07/26/2023 09:23:11 09/27/19 24 09/28/2023 LIPID PANEL cholesterol, total 127 mg/dL 100-19 9 Not Available [address], [address], 09/28/2023 09:21:14 09/27/1909/28/2023 LIPID PANEL triglyceride s 135 mg/dL 0-149 Not Available [address], [address], 09/28/2023 09:21:14 09/27/1909/28/2023 LIPID PANEL HDL cholesterol 36 mg/dL >39 below low normal Not Available [address], [address], 09/28/2023 09:21:14 09/27/1909/28/2023 LIPID PANEL VLDL cholesterol quita 24 mg/dL 5-40 Not Available [address], [address], 09/28/2023 09:21:14 09/27/1909/28/2023 LIPID PANEL LDL chol calc ([facility]) 67 mg/dL 0-99 Not Available [address], [address], 09/28/2023 09:21:14 09/27/1909/28/2023 COMP. METAB OLIC PANEL (14) glucose 88 mg/dL 70-99 Not Available [address], [address], 09/28/2023 09:21:14 09/27/19 24 09/28/2023 COMP. METAB OLIC PANEL (14) BUN 10 mg/dL 6-24 Not Available [address], [address], 09/28/2023 09:21:14 09/27/19 24 09/28/2023 COMP. METAB OLIC PANEL (14) creatinine 0.69 mg/dL 0.76-1 .27 below low normal Not Available [address], [address], 09/28/2023 09:21:14 09/27/19 24 09/28/2023 COMP. METAB OLIC PANEL (14) eGFR 115 mL/mi n/1.7 3 >59 Not Available [address], [address], 09/28/2023 09:21:14 09/27/19 24 09/28/2023 COMP. METAB OLIC PANEL (14) BUN/creatini ne ratio 14 9-20 Not Available [address], [address], 09/28/2023 09:21:14 09/27/19 24 09/28/2023 COMP. METAB OLIC PANEL (14) sodium 140 mmol/ L 134-14 4 Not Available [address], [address], 09/28/2023 09:21:14 09/27/19 24 09/28/2023 COMP. METAB OLIC PANEL (14) potassium 4.4 mmol/ L 3.5-5. 2 Not Available [address], [address], 09/28/2023 09:21:14 09/27/19 24 09/28/2023 COMP. METAB OLIC PANEL (14) chloride 100 mmol/ L 96-106 Not Available [address] [place], [address], 09/28/2023 09:21:14 09/27/19 24 09/28/2023 COMP. METAB OLIC PANEL (14) carbon dioxide, total 26 mmol/ L Not Available [address], [address], 09/28/2023 09:21:14 09/27/19 24 09/28/2023 COMP. METAB OLIC PANEL (14) calcium 9.3 mg/dL 8.7-10 .2 Not Available [address], [address], 09/28/2023 09:21:14 09/27/19 24 09/28/2023 COMP. METAB OLIC PANEL (14) protein, total 7.5 g/dL 6.0-8. 5 Not Available [address], [address], 09/28/2023 09:21:14 09/27/1909/28/2023 COMP. METAB OLIC PANEL (14) albumin 4.4 g/dL 4.1-5. 1 Not Available [address], [address], 09/28/2023 09:21:14 09/27/19 24 09/28/2023 COMP. METAB OLIC PANEL (14) globulin, total 3.1 g/dL 1.5-4. 5 Not Available [address], [address], 09/28/2023 09:21:14 09/27/19 24 09/28/2023 COMP. METAB OLIC PANEL (14) A/G ratio 1.4 1.2-2. 2 Not Available [address], [address], 09/28/2023 09:21:14 09/27/19 24 09/28/2023 COMP. METAB OLIC PANEL (14) bilirubin, total 0.3 mg/dL 0.0-1. 2 Not Available [address], [address], 09/28/2023 09:21:14 09/27/19 24 09/28/2023 COMP. METAB OLIC PANEL (14) alkaline phosphatase 208 IU/L 44-121 above high normal Not Available [address], [address], 09/28/2023 09:21:14 09/27/19 24 09/28/2023 COMP. METAB OLIC PANEL (14) AST (SGOT) 18 IU/L 0-40 Not Available [address], [address], 09/28/2023 09:21:14 09/27/19 24 09/28/2023 COMP. METAB OLIC PANEL (14) ALT (SGPT) 30 IU/L 0-44 Not Available [address], [address], 09/28/2023 09:21:14 09/27/19 24 09/28/2023 CARDI OVASC ULAR REPOR T interpretati on Note Suppl morena diaz repor t is avail able. Not Available [address], [address], 09/28/2023 09:21:15 09/27/19 24 09/28/2023 CARDI OVASC ULAR REPOR T pdf . Not Available [address], [address], 09/28/2023 09:21:15 09/27/19 24 09/28/2023 CBC, PLATE LET, NO DIFFE RENTI AL WBC 6.0 x10e3 /uL 3.4-10 .8 Not Available [facility] & [address], [address], 09/28/2023 09:21:16 09/27/19 24 09/28/2023 CBC, PLATE LET, NO DIFFE RENTI AL RBC 5.09 x10e6 /uL 4.14-5 .80 Not Available [address], [address], 09/28/2023 09:21:16 09/27/1909/28/2023 CBC, PLATE LET, NO DIFFE RENTI AL hemoglobin 14.2 g/dL 13.0-1 7.7 Not Available [address], [address], 09/28/2023 09:21:16 09/27/1909/28/2023 CBC, PLATE LET, NO DIFFE RENTI AL hematocrit 43.5 % 37.5-5 1.0 Not Available [address], [address], 09/28/2023 09:21:16 09/27/1909/28/2023 CBC, PLATE LET, NO DIFFE RENTI AL MCV 86 fL 79-97 Not Available [address], [address], 09/28/2023 09:21:16 09/27/1909/28/2023 CBC, PLATE LET, NO DIFFE RENTI AL MCH 27.9 pg 26.6-3 3.0 Not Available [address], [address], 09/28/2023 09:21:16 09/27/1909/28/2023 CBC, PLATE LET, NO DIFFE RENTI AL MCHC 32.6 g/dL 31.5-3 5.7 Not Available [address] [place], [address], 09/28/2023 09:21:16 09/27/19 24 09/28/2023 CBC, PLATE LET, NO DIFFE RENTI AL RDW 14.2 % 11.6-1 5.4 Not Available [address], [address], 09/28/2023 09:21:16 09/27/19 24 09/28/2023 CBC, PLATE LET, NO DIFFE RENTI AL platelets 210 x10e3 /uL 150-45 0 Not Available [address], [address], 09/28/2023 09:21:16 09/27/19 24 09/27/2023 HbA1c (hemo globi n A1c), blood HbA1c 5.4 Not Available In-Office Order Internal Use Only DO Not Attach Compendium DO Not Attach Compendium, Do Not Delete/merge, [id number] 09/27/2023 11:17:21 04/26/20 24 04/26/2024 HbA1c (hemo globi n A1c), blood HbA1c 6.4 Not Available In-Office Order Internal Use Only DO Not Attach Compendium DO Not Attach Compendium, Do Not Delete/merge, [id number] 04/26/2024 09:02:00 08/09/1908/11/2024 LIPID PANEL cholesterol, total 155 mg/dL 100-19 9 Not Available [address], [address], 08/11/2024 10:10:40 08/09/19 25 08/11/2024 LIPID PANEL triglyceride s 307 mg/dL 0-149 above high normal Not Available [address], [address], 08/11/2024 10:10:40 08/09/19 25 08/11/2024 LIPID PANEL HDL cholesterol 40 mg/dL >39 Not Available [facility] [address], [address], 08/11/2024 10:10:40 08/09/1908/11/2024 LIPID PANEL VLDL cholesterol quita 49 mg/dL 5-40 above high normal Not Available [address], [address], 08/11/2024 10:10:40 08/09/1908/11/2024 LIPID PANEL LDL chol calc ([facility]) 66 mg/dL 0-99 Not Available [address], [address], 08/11/2024 10:10:40 08/09/19 25 08/11/2024 COMP. METAB OLIC PANEL (14) glucose 107 mg/dL 70-99 above high normal Not Available [address], [address], 08/11/2024 10:10:41 08/09/19 25 08/11/2024 COMP. METAB OLIC PANEL (14) BUN 16 mg/dL 6-24 Not Available [address], [address], 08/11/2024 10:10:41 08/09/19 25 08/11/2024 COMP. METAB OLIC PANEL (14) creatinine 0.70 mg/dL 0.76-1 .27 below low normal Not Available [address], [address], 08/11/2024 10:10:41 08/09/19 25 08/11/2024 COMP. METAB OLIC PANEL (14) eGFR 114 mL/mi n/1.7 3 >59 Not Available [address], [address], 08/11/2024 10:10:41 08/09/19 25 08/11/2024 COMP. METAB OLIC PANEL (14) BUN/creatini ne ratio 23 9-20 above high normal Not Available [address], [address], 08/11/2024 10:10:41 08/09/19 25 08/11/2024 COMP. METAB OLIC PANEL (14) sodium 137 mmol/ L 134-14 4 Not Available [address], [address], 08/11/2024 10:10:41 08/09/19 25 08/11/2024 COMP. METAB OLIC PANEL (14) potassium 4.7 mmol/ L 3.5-5. 2 Not Available [address], [address], 08/11/2024 10:10:41 08/09/19 25 08/11/2024 COMP. METAB OLIC PANEL (14) chloride 96 mmol/ L 96-106 Not Available [address], [address], 08/11/2024 10:10:41 08/09/19 25 08/11/2024 COMP. METAB OLIC PANEL (14) carbon dioxide, total 29 mmol/ L 20-29 Not Available [address], [address], 08/11/2024 10:10:41 08/09/19 25 08/11/2024 COMP. METAB OLIC PANEL (14) calcium 11.2 mg/dL 8.7-10 .2 above high normal Not Available [address], [address], 08/11/2024 10:10:41 08/09/19 25 08/11/2024 COMP. METAB OLIC PANEL (14) protein, total 7.4 g/dL 6.0-8. 5 Not Available [address] [place], [address], 08/11/2024 10:10:41 08/09/19 25 08/11/2024 COMP. METAB OLIC PANEL (14) albumin 4.3 g/dL 4.1-5. 1 Not Available [address], [address], 08/11/2024 10:10:41 08/09/19 25 08/11/2024 COMP. METAB OLIC PANEL (14) globulin, total 3.1 g/dL 1.5-4. 5 Not Available [address], [address], 08/11/2024 10:10:41 08/09/19 25 08/11/2024 COMP. METAB OLIC PANEL (14) bilirubin, total <0.2 mg/dL 0.0-1. 2 Not Available [address], [address], 08/11/2024 10:10:41 08/09/19 25 08/11/2024 COMP. METAB OLIC PANEL (14) alkaline phosphatase 183 IU/L 44-121 above high normal Not Available [address], [address], 08/11/2024 10:10:41 08/09/19 25 08/11/2024 COMP. METAB OLIC PANEL (14) AST (SGOT) 27 IU/L 0-40 Not Available [address], [address], 08/11/2024 10:10:41 08/09/19 25 08/11/2024 COMP. METAB OLIC PANEL (14) ALT (SGPT) 28 IU/L 0-44 Not Available [address], [address], 08/11/2024 10:10:41 08/09/1908/11/2024 CARDI OVASC ULAR REPOR T interpretati on Note Suppl mroena diaz repor t is avail able. Not Available [address], [address], 08/11/2024 10:10:42 08/09/1908/11/2024 CARDI OVASC ULAR REPOR T pdf . Not Available [facility] & [address], [address], 08/11/2024 10:10:42 08/09/1908/11/2024 CBC, PLATE LET, NO DIFFE RENTI AL WBC 12.5 x10e3 /uL 3.4-10 .8 above high normal Not Available [address], [address], 08/11/2024 10:10:42 08/09/1908/11/2024 CBC, PLATE LET, NO DIFFE RENTI AL RBC 4.84 x10e6 /uL 4.14-5 .80 Not Available [address], [address], 08/11/2024 10:10:42 08/09/1908/11/2024 CBC, PLATE LET, NO DIFFE RENTI AL hemoglobin 12.9 g/dL 13.0-1 7.7 below low normal Not Available [address], [address], 08/11/2024 10:10:42 08/09/1908/11/2024 CBC, PLATE LET, NO DIFFE RENTI AL hematocrit 40.9 % 37.5-5 1.0 Not Available [address], [address], 08/11/2024 10:10:42 08/09/1908/11/2024 CBC, PLATE LET, NO DIFFE RENTI AL MCV 85 fL 79-97 Not Available [address], [address], 08/11/2024 10:10:42 08/09/19 25 08/11/2024 CBC, PLATE LET, NO DIFFE RENTI AL MCH 26.7 pg 26.6-3 3.0 Not Available [address], [address], 08/11/2024 10:10:42 08/09/1908/11/2024 CBC, PLATE LET, NO DIFFE RENTI AL MCHC 31.5 g/dL 31.5-3 5.7 Not Available [address], [address], 08/11/2024 10:10:42 08/09/19 25 08/11/2024 CBC, PLATE LET, NO DIFFE RENTI AL RDW 15.5 % 11.6-1 5.4 above high normal Not Available [address], [address], 08/11/2024 10:10:42 08/09/19 25 08/11/2024 CBC, PLATE LET, NO DIFFE RENTI AL platelets 267 x10e3 /uL 150-45 0 Not Available [address], [address], 08/11/2024 10:10:42 08/09/19 25 08/09/2024 HbA1c (hemo globi n A1c), blood HbA1c 6.2 Not Available In-Office Order Internal Use Only DO Not Attach Compendium DO Not Attach Compendium, Do Not Delete/merge, [id number] 08/09/2024 15:00:07 Result Notes None recorded. Problems [...] ot Available atorvastati n 20 mg tablet Take 1 tablet every day by oral route for 90 days. 10/18 completed Not Available Not Available Not Available clindamycin HCl 300 mg capsule TAKE [...] solution subcutaneou s insulin pen 40 units qhs 08/09 completed Not Available Not Available Not [...] in Arterial blood by Pulse oximetry Systolic And Diastolic Provider Name and Address Organization Details Last Updated DateTime 4 180.34 cm 30.7 kg/m2 48301.4 2 g 78 /min 96 % 96 % 126/74 mm[Hg] Yina Lorenzana [place] [facility] 4 11:04:36 Date Recorded Body height Body mass index (BMI) Body weight Oxygen saturation Oxygen saturation in Arterial blood by Pulse oximetry Heart rate Respiratory rate Systolic And Diastolic Provider Name and Address Organization Details Last Updated DateTime 5 180.34 cm 30.2 kg/m2 22104.3 9 g 98 % 98 % 78 /min 16 /min 118/76 mm[Hg] Theresa Pandey [place] [facility] 5 14:42:34 Date Recorded Body height Body mass index (BMI) Body weight Heart rate Oxygen saturation Oxygen saturation in Arterial blood by Pulse oximetry Systolic And Diastolic Provider Name and Address Organization Details Last Updated DateTime 4 180.34 cm 28.3 kg/m2 51593.2 5 g 79 /min 97 % 97 % 116/77 mm[Hg] Yina Lorenzana MA [facility] 4 10:50:53 Date Recorded Body height Body mass index (BMI) Body weight Respiratory rate Oxygen saturation Oxygen saturation in Arterial blood by Pulse oximetry Heart rate Systolic And Diastolic Provider Name and Address Organization Details Last Updated DateTime 5 180.34 cm 31.1 kg/m2 577196. 1 g 16 /min 96 % 96 % 88 /min 117/72 mm[Hg] Theresa Pandey MA [facility] 5 15:06:45 Date Recorded Body height Body mass index (BMI) Body weight Oxygen saturation Oxygen saturation in Arterial blood by Pulse oximetry Heart rate Systolic And Diastolic Provider Name and Address Organization Details Last Updated DateTime 4 180.34 cm 28.6 kg/m2 28743.5 4 g 95 % 95 % 102 /min 115/78 mm[Hg] Yina Lorenzana MA [facility] 4 15:01:26 Social History Question Answer Notes LastModified by [employer] ion Details LastModified Time Tobacco Smoking Status Current Every Day Smoker Ramya Bourgeois MA null, [facility] 03/16/2019 16:01:26 Are You Blind Or Do [...] anxious, or unable to sleep at night)? [id number] enio Information not available 01/09/2021 Family History Relationship [...] Eating Disorder N Anemia N Heart Attack ([place]) N Diabetes Y Anxiety Disorder N Muscle, [...] influenza, unspecified formulation 9 completed [facility] 07/04/[facility] 20:40:43 COVID-19, mRNA, LNP-S, PF, 30 mcg/0.3 mL dose 1 completed Not Available [facility] 07/04/2023 20:40:43 COVID-19, mRNA, LNP-S, PF, 30 mcg/0.3 mL dose 1 completed Not Available [facility] 07/04/2023 20:40:43 Influenza, split virus, quadrivalent, preservative 0 completed Lizabeth Nieves MA [facility], [place] - [facility] 06/04/2020 15:52:32 Past Encounters Encounter ID Performer Location Encounter Start Date Encounter Closed Date Diagnosis/Indication Diagnosis SNOMED-CT Code Diagnosis ICD10 Code Diagnosis Note [id number] [facility] [address] [place] [address] 03/16/2019 15:52:58 03/16/2019 16:29:51 Type 2 diabetes mellitus 90737922 E11.9 Hidradenit is suppurativa 85422041 L73.2 [id number] Nayana Peterson PA-C [facility] [address] [place] [address] 01/04/2020 10:45:28 01/07/2020 07:49:31 Type 2 diabetes mellitus 64833185 E11.9 [id number] Nayana Peterson PA-C [facility] [address] [place] [address] 04/01/2020 13:56:14 04/02/2020 11:45:35 Type 2 diabetes mellitus 21575953 E11.9 Cellulitis of left lower limb 7064091537 5445271 L03.258 [id number] Se Ram MD [facility] [address] [place] [address] 06/04/2020 15:21:14 06/04/2020 15:52:39 Type 2 diabetes mellitus without complication 687193315 E11.9 Type 2 kay betes mellitus 00093707 E11.9 Administra tion of influenza vaccine 92298561 Z23 [id number] Se Ram MD [facility] [address] [place] [address] 01/09/2021 10:24:15 01/12/2021 13:38:26 Hidradenitis suppurativa 99263392 L73.2 [id number] Nayana Peterson PA-C [facility] [address] [place] [address] 12/01/2021 15:04:09 12/01/2021 15:52:08 Type 2 diabetes mellitus 65707461 E11.9 Hidradenit is suppurativa 52935645 L73.2 Primary insomnia 0975097 F51.01 [id number] Se Ram MD [facility] [address] [place] [address] 01/05/2022 11:50:21 01/05/2022 12:28:46 Type 2 diabetes mellitus 11361855 E11.9 [id number] Nayana Peterson PA-C [facility] [address] [place] [address] 10/12/2022 14:24:10 10/13/2022 12:46:20 Type 2 diabetes mellitus 02130213 E11.9 Mixed hyperlipidemia 267 730756 E78.2 Seasonal a llergic rhinitis 554815294 J30.2 Overweight 120679352 E66 .3 [id number] Nayana Peterson PA-C [facility] [address] [place] [address] 07/26/2023 10:54:15 07/27/2023 09:55:19 Type 2 diabetes mellitus without complication 143860207 E11.9 Constipation 49817553 K5 9.09 Tobacco de pendence syndrome 82855528 F17.200 Overweight 542131806 E66 .3 [id number] Nayana Peterson PA-C [facility] [address] [place] [address] 09/27/2023 10:46:09 10/01/2023 12:06:56 Adult health examination 379485366 Z00.00 Type 2 kay betes mellitus 78426324 E11.9 Hidradenit is suppurativa 70523703 L73.2 Overweight 430218215 E66 .3 [id number] Nayana Peterson PA-C [facility] [address] [place] [address] 04/26/2024 14:45:21 05/03/2024 10:52:28 Type 2 diabetes mellitus 78133089 E11.9 Hidradenit is suppurativa 45055792 L73.2 Swelling of testicle 438 891653 N50.89 Overweight 711994618 E66 .3 [id number] Se Ram MD [facility] [address] [place] [address] 08/09/2024 14:24:27 08/13/2024 13:10:41 Type 2 diabetes mellitus 93651178 E11.9 Cellulitis of left lower limb 2580953830 5983523 L03.116 Constipation 73848436 K5 9.09 Type 2 kay betes mellitus without complication 829060430 E11.9 Hidradenit is suppurativa 59185595 L73.2 Mixed anxi ety and depressive disorder 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 Gastroesop hageal reflux disease without esophagitis 613557044 K21.9 Essential hypertension 80033846 I10 Overweight 438730058 E66 .3 [id number] Se Ram MD [facility] [address] [place] [address] 10/18/2024 14:55:59 10/19/2024 11:04:05 Hidradenitis suppurativa 62215651 L73.2 cont prn..re evaluate after surgery Long-term drug therapy 263575117 Z79.891 Type 2 kay betes mellitus without complication 283408412 E11.9 cont current diabetic regimen Overweight 737751928 E66 .3 Health Concerns Section Related Observation LastModified by Organization Detai ls LastModified Time None Recorded Concern Status LastModified by Organization Details LastModified Time None Recorded Advance Directives Directive None Recorded Payers Insurance Date Sequence Insurance Name Policy Number Policy Barnes Covered Member ID Barnes Member ID Guarantor Name 10/17/2024 1 [facility] (MEDICARE REPLACEMENT/AD VANTAGE - PPO) [id number] [place] [id number] [place] 10/17/2024 2 [place] WHEN MEDICARE OR MEDICARE REPLAC[place] PR[place]) [place] [id number] [place] 08/09/2024 1 [place] [id number] [place] 08/09/2024 [place] [facility] [place] [id number] [place] Notes Date Note Type Note Provider Name and Address Organization Details Recorded Time 07/26/2023 text/[email or web address] has developed constipation for a month...sporadic large and very hard...no stool softener...also wants nicotine patch Nayana Peterson PA-C Attn: Accounting,[address] [facility], [place], [address], [facility] 07/26/2023 11:24:37 09/27/2023 text/html recheck on diabetes..started cosentyx...needs labs...cosentyx has made his BS elevated Nayana Peterson PA-C Attn: Accounting,[address] [facility], [place], [address], [facility] 09/27/2023 11:18:35 04/26/2024 text/html abscess on rt testicle..infectio n went to testicle..needs urology he was told Nayana Peterson PA-C Attn: Accounting,[address] [facility], [place], [address], [facility] 04/26/2024 15:16:30 08/09/2024 text/html heart is beating irreg...fast then slow...getting heartburn now...denies N/V..denies chest pain or jaw pain..hx of diabetes htn..no family cardiac hx Lizabeth Nieves MA [facility], [place] - [place] 08/09/2024 15:16:48 10/18/2024 text/html 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
--- OUTSIDE RECORDS SUMMARY | 2025-02-04 10:07 | XMS_ITS | Referral Summary ---
Author Organization [facility] Address [address] [place] [address] Care Team Providers Care Dba Developer Name Role Phone Dominic Peterson Primary Care Provider [phone] Encounters Date Type Department Care Team Description 12/05/2024 Telephone [facility] Surgery [address] [facility] 6th [place] [address] Tairra Batista Scheduling 11/30/2024 9:45 AM CDT Office Visit [facility] Surgery [address] [facility] 6th [place] [address] Josh Gruber MD Hidradenitis suppurativa of multiple sites (Primary Dx); Hidradenitis suppurativa 11/26/2024 Orders Only [facility] Dermatology [address] [place] [address] [address] [place] [address] Nick Llanos MD from Last [...] HEPATITIS C ANTIBODY Routine 07/14/2022 10:35 AM LUMBER PLANER from Last 3 Months or Most Recently Relevant to Health Maintenance Results * Hepatitis C antibody (07/14/2022 10:35 AM LUMBER PLANER) Hep C Ab Nonreactive Nonreactive [facility] Comment: Interpretive Data Nonreactive: Antibodies to [...] on 2019. Blood 07/14/2022 10:3 5 AM LUMBER PLANER 07/14/2022 1:53 PM LUMBER PLANER Nick Llanos MD LAB MICROBIOLOGY - GENERA L ORDERABLES Edited Result - Final [facility] [address] Department [place] [address] from Last 3 Months or Most Recently Relevant to Health Maintenance Insurance MEDICARE IDPA IDPA [facility] MEDICARE ADVANTAGE [facility] DUAL COMPLETE [place] [id number] [place] IDPA [facility] MEDICARE ADVANTAGE Advance Directives For more information, please contact: [phone] * Full Code (Latest Code Status on File) Date Activated Date Inactivated Comments 02/21/2024 11:02 AM 02/23/2024 6:13 PM Care Teams Dba Developer Relationship Specialty Start Date End Date Dominic Peterson PA [address] [place] [address] PCP - General Family Practice 05/11/22
--- OUTSIDE RECORDS SUMMARY | 2025-02-04 10:07 | XMS_ITS | Patient Health Record ---
Author Organization [facility] Address [address] [place] [address] Care Team Providers Care Laborer Gold Leaf Name Role Phone Diya Ruiz Unavailable [phone] Reason For Referral No Information Medications Medication SIG (Take, Route, Frequency, Duration) Notes Start Date End Date Status HUMIRA(CF) PEN CROHN'S-ULC COLITIS-HID SUP STRT 80 MG/0.8 ML SUBCUT KT *Reorder from [employer] for eRx and Interaction Alerts* 10/08/2022 Active Omeprazole 40 MG Oral 10/08/2022 Ac tive Triamcinolone Acetonide 0.1% External 10/08/2022 Active Nystatin 635801 UNIT/GM External 10/08/2022 Active OneTouch Ultra In Vitro 10/08/2022 Acti ve Diclofenac Sodium 50 MG Oral 10/08/2022 Active Clindamycin HCl 300 MG Oral 10/08/2022 Active Acetaminophen Extra Strength 500 MG Oral 10/08/2022 Active OneTouch Ultra 2 w/Device 10/08/2022 Active Remicade 100 MG Intravenous 10/08/2022 A ctive Levemir FlexTouch 100 UNIT/ML Subcutaneous 10/08/2022 Active OneTouch Ultra Blue In Vitro 10/08/2022 Active OneTouch Delica Plus [id number] 10/08/2022 Active traZODone HCl 100 MG Oral 10/08/2022 Active traMADol HCl 50 MG Oral 10/08/2022 Active TECHLITE PEN NEEDLE 32 gauge x MISCELLANEOUS *Reorder from [facility] for eRx and Interaction Alerts* 10/08/2022 Active TAB-A-JEANETTE MULTIVITAMIN W-IRON 15 MG IRON-400 MCG TABLET *Reorder from [facility] for eRx and Interaction Alerts* 10/08/2022 Active MUCUS ER 600 mg Oral *[facility] Interaction Alerts* 10/08/2022 Active predniSONE 10 MG Oral 10/08/2022 Ac tive HUMIRA(CF) PEN 40 MG/0.4 ML SUBCUTANEOUS KIT *Reorder from [facility] for eRx and Interaction Alerts* 10/08/2022 Active ARIPiprazole 10 MG Oral 10/08/2022 Active Levemir FlexPen 100 unit/mL (3 mL) SUBCUTANEOUS *Reorder from [facility] for eRx and Interaction Alerts* 10/08/2022 Active Sertraline HCl 100 MG Oral 10/08/2022 Active Ketoconazole 2% External 10/08/2022 Act diomedes Atorvastatin Calcium 20 MG Oral 10/08/2022 Active metFORMIN HCl 500 MG Oral 10/08/2022 Active Abilify 10 MG Oral 10/08/2022 Activ e Immunizations Vaccine Route Administration Date Status Comme nts Influenza virus vaccine, quadrivalent (IIV4), split virus, 0.25 mL dosage Unknown 06/06/2018 Administered Plan Of Treatment No Information Insurance Providers Payer Name Payer Address Payer Phone Subscriber Number Group Number Insured Name Patient Relationship to Insured Coverage Start Date Coverage End Date [facility] Medicare Replacement/ Advantage - Ppo [address] [address] [place] [address] [id number] JAMAR ZELAYA Self - patient is the insured [place] [address] [address] [place] [address] [id number] JAMAR ZELAYA Self - patient is the insured
--- OUTSIDE RECORDS SUMMARY | 2025-02-04 10:07 | XMS_ITS | Clinical Summary ---
Author Organization [facility] Address [address] [place] [address] Care Team Providers Care Objective C Developer Name Role Phone Dominic Peterson Primary Care Provider [phone] Allergies No known active allergies Medications ARIPiprazole [...] Type Department Care Team Description 12/05/2024 Telephone [facility] Surgery [address] [place] [address] 6th [place] [address] Tiarra Batista Scheduling 11/30/2024 9:45 AM CDT Office Visit [facility] Surgery [facility] 6th [place] [address] [place] [address] Josh Gruber MD Hidradenitis suppurativa of multiple sites (Primary Dx); Hidradenitis suppurativa 11/26/2024 Orders Only [facility] Dermatology [address] [facility] [address] [place] [address] Nick Llanos MD from Last 3 Months [...] season) 2024 07/16/2021, 09/25/2020, 09/05/2020 Influenza Vaccine (#1) 2025 3, 04/25/2022, 05/28/2021, Additional history exists Hepatitis C Screening Completed 07/14/2022, 022 Pneumococcal vaccine <65 Aged Out No longer eligible based on patient's age to complete this topic Procedures Procedure Name Priority Date/Time Associated Diagnosis Comments HEPATITIS C ANTIBODY Routine 07/14/2022 10:35 AM DIGITAL COMMENTATOR from Last 3 Months or Most Recently Relevant to Health Maintenance Results * Hepatitis C antibody (07/14/2022 10:35 AM DIGITAL COMMENTATOR) Hep C Ab Nonreactive Nonreactive [facility] Comment: Interpretive Data Nonreactive: Antibodies to [...] on 2019. Blood 07/14/2022 10:3 5 AM DIGITAL COMMENTATOR 07/14/2022 1:53 PM DIGITAL COMMENTATOR us Nick Llanos MD LAB MICROBIOLOGY - [facility] L ORDERABLES Edited Result - Final [facility] [address] Department [place] [address] from Last 3 Months or Most Recently Relevant to Health Maintenance Insurance MEDICARE IDPA IDPA [facility] MEDICARE ADVANTAGE [facility] Address: [facility] [address] [id number] [place] Member Subscriber Plan / Payer (Ef fective 2021-Present) Name:Chago Cao Relation to Subscriber:Self Name:Chago Cao Payer ID:[id number] (NAIC) Type:MEDICARE RISK OTHER Address: [place] [id number] [facility] MEDICARE ADVANTAGE [facility] MED[facility]ARE Address: [address] [address] [place] [address] Advance Directives For more information, please contact: [phone] * Full Code (Latest Code Status on File) Date Activated Date Inactivated Comments 02/21/2024 11:02 AM 02/23/2024 6:13 PM Care Teams Objective C Developer Relationship Specialty Start Date End Date Dominic Peterson PA [address] [place] [address] PCP - General Family Practice 05/11/22
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
[2025-02-04 10:16] LABS: Hematocrit 41.8 % (40.0-54.0); Hemoglobin 13.5 g/dL (14.0-18.0); Immature Granulocyte Percent A 0.4 % (0.0-0.0); Lymphocytes Absolute Auto 1.01 K/mm3 (1.10-4.50); Mean Corpuscular HGB Conc 32.3 g/dL (32-36); Mean Corpuscular Hemoglobin 27.5 pg (27.0-31.0); Mean Corpuscular Volume 85.1 fL (78.0-102.0); Nucleated Red Blood Cells Absolute Auto 0.00 K/mm3 (0.00-0.00); Nucleated Red Blood Cells Perc 0.0 % (0-0.0); Platelet Count Result 201 K/mm3 (150-420); Red Blood Count 4.91 M/mm3 (4.70-6.10); White Blood Count 7.4 K/mm3 (4.8-10.8)
[2025-02-04 10:29] LABS: Alanine Aminotransferase 29 U/L (6-50); Albumin Level 4.4 g/dL (3.5-5.1); Alkaline Phosphatase 142 U/L (38-126); Anion Gap 3 mmol/L (4-12); Aspartate Amino Transferase 33 U/L (17-59); Bilirubin,Total 0.4 mg/dL (0.2-1.3); Blood Urea Nitrogen 14 mg/dL (9-20); Calcium 9.3 mg/dL (8.4-10.2); Carbon Dioxide 30 mmol/L (22-30); Chloride 103 mmol/L (98-107); Creatine Kinase 25 U/L (55-170); Estimated Glomerular Filt Rate > 60; Glucose 138 mg/dL (65-110); Osmolality Calculated 284 mOsm/kg (285-295); Potassium 5.1 mmol/L (3.4-5.0); Sodium 136 mmol/L (137-145); Total Protein 7.9 g/dL (6.3-8.2)
[2025-02-04 10:41] LABS: Troponin I < 0.012 ng/mL (0.000-0.034)
[2025-02-04 11:00] LABS: Thyroid Stimulating Hormone 0.774 uIU/mL (0.465-4.680)
[2025-02-05 11:59] LABS: Iron 60 ug/dL (49-181)
[2025-02-05 12:08] LABS: Percent Iron Saturation 16 % (20-50)
[2025-02-05 12:35] LABS: Ferritin 9.69 ng/mL (17.9-464)
== END 2025-02-04 09:58 | disposition home or self-care (01) ==
PROVIDERS: PCP Family Medicine; Visit Provider Family Medicine
DX: R07.9 Chest pain, unspecified (principal); R55 Syncope and collapse; D64.9 Anemia, unspecified
CPT/HCPCS: 36415; 80053; 82550; 82553; 82728; 83540; 83550; 84443; 84484; 85025

== ENCOUNTER 2025-02-08 13:51 | Outpatient (CLI) | payer MEDICARE, MEDICAID, SELFPAY ==
--- NOTE | ~2025-02-08 | US_ITS ---
EXAMINATION: US carotid duplex BI DATE: 02/08/2025 15:42 CDT INDICATION: Syncope TECHNIQUE: Grayscale, color Doppler, and pulsed Doppler images of the cervical carotid arteries were obtained. The degree of vessel stenosis is placed in one of the following categories: normal, <50%, 50-69%, >=7 0% but less than near-occlusion, near-occlusion, or total occlusion. Note that percent stenosis relative to normal distal artery lumen diameter is indirectly measured fro m velocity measurements as described originally by Juvencio, et al. Radiology 2003; 229:340-346 and upda jante by Chin Snell et al STROKE 2012;43(3);915-921. COMPARISON: None. FINDINGS: There is mild atherosclerosis of both carotid arteries. Peak systolic velocity (in cm/s) is detailed below RIGHT: Right common carotid artery (CCA): 102 cm/s. Right internal carotid artery (ICA) PSV: 71 cm/s. Right ICA end-diastolic velocity (EDV): 24 cm/s. Right ICA/CCA PSV ratio is 0.7. Right external carotid artery (ECA): 100cm/s. There is antegrade flow in the right vertebral artery LEFT: Left common carotid artery (CCA): 112 cm/s. Left internal carotid artery (ICA) PSV: 77 cm/s. Left ICA end-diastolic velocity (EDV): 28 cm/s. Left ICA/CCA PSV ratio is 0.7. Left external carotid artery (ECA): 61cm/s. There is antegrade flow in the left vertebral artery. IMPRESSION: 1. Less than 50% stenosis in the right internal carotid artery. 2. Less than 50% stenosis in the left internal carotid artery. Reviewed, dictated and finalized at location A.
--- OUTSIDE RECORDS SUMMARY | 2025-02-08 13:55 | XMS_ITS | Patient Health Record ---
Author Organization [facility] As [email or web address] Address [address] [place] [address] Care Team Providers Care Improvement Coordinator Name Role Phone Diya Ruiz Unavailable [phone] Reason For Referral No Information Medications Medication SIG (Take, Route, Frequency, Duration) Notes Start Date End Date Status HUMIRA(CF) PEN CROHN'S-ULC COLITIS-HID SUP STRT 80 MG/0.8 ML SUBCUT KT *Reorder from [employer] for eRx and Interaction Alerts* 10/08/2022 Active Omeprazole 40 MG Oral 10/08/2022 Ac tive Triamcinolone Acetonide 0.1% External 10/08/2022 Active Nystatin 418057 UNIT/GM External 10/08/2022 Active OneTouch Ultra In Vitro 10/08/2022 Acti ve Diclofenac Sodium 50 MG Oral 10/08/2022 Active Clindamycin HCl 300 MG Oral 10/08/2022 Active Acetaminophen Extra Strength 500 MG Oral 10/08/2022 Active OneTouch Ultra 2 w/Device 10/08/2022 Active Remicade 100 MG Intravenous 10/08/2022 A ctive Levemir FlexTouch 100 UNIT/ML Subcutaneous 10/08/2022 Active OneTouch Ultra Blue In Vitro 10/08/2022 Active OneTouch Delica Plus [id number] 10/08/2022 Active traZODone HCl 100 MG Oral 10/08/2022 Active traMADol HCl 50 MG Oral 10/08/2022 Active TECHLITE PEN NEEDLE 32 gauge x MISCELLANEOUS *Reorder from [facility] for eRx and Interaction Alerts* 10/08/2022 Active TAB-A-JEANETTE MULTIVITAMIN W-IRON 15 MG IRON-400 MCG TABLET *Reorder from [facility] for eRx and Interaction Alerts* 10/08/2022 Active MUCUS ER 600 mg Oral *[facility] Interaction Alert[facility]* 10/08/2022 Active predniSONE 10 MG Oral 10/08/2022 Ac tive HUMIRA(CF) PEN 40 MG/0.4 ML SUBCUTANEOUS KIT *Reorder from [facility] for eRx and Interaction Alerts* 10/08/2022 Active ARIPiprazole 10 MG Oral 10/08/2022 Active Levemir FlexPen 100 unit/mL (3 mL) SUBCUTANEOUS *Reorder from [facility] for eRx and Interaction Alerts* 10/08/2022 [...] Insured Coverage Start Date Coverage End Date [facility] Medicare Replacement/ Advantage - Ppo [address] [address] [place] [address] [id number] JAMAR ZELAYA Self - patient is the insured [place] [address] [address] [place] [address] [id number] JAMAR ZELAYA Self - patient is the insured
--- OUTSIDE RECORDS SUMMARY | 2025-02-08 13:55 | XMS_ITS | Data Portability ---
Author Organization 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 Plan of Treatment Reminders Order Date Submit Date Provider Last Modified By Organization Details Last Modified Time Details Appointments None recorded. Lab CBC 2024 025 [email or web address] [facility], [address] [place] [address], [address], 12:31:53 CMP, serum or plasma 2024 025 [email or web address] [facility], [address] [place] [address], [address], 12:31:53 lipid panel, serum 2024 025 [email or web address] [facility], [address] [place] [address], [address], 12:31:53 hemoglobi n A1c, QN, blood 2024 025 [email or web address] [facility], [address] [place] [address], [address], 5 12:31:53 CBC 2024 025 MARY [facility], [address] [place] [address] [place], [address], 5 10:10:42 CMP, serum or plasma 2024 025 MARY [facility], [address], [place], [address], 5 10:10:41 lipid panel, serum 2024 025 MARY [facility], [address], [place], [address], 5 10:10:40 HbA1c (hemoglob in A1c), blood 2024 025 MARY In-Office Order, Internal Use Only DO Not Attach Compendium DO Not Attach Compendium, Do Not Delete/merge, [id number] 5 15:16:11 HbA1c (hemoglob in A1c), blood 2023 024 [email or web address] In-Office Order, Internal Use Only DO Not Attach Compendium DO Not Attach Compendium, Do Not Delete/merge, [id number] 4 15:55:03 CBC 2023 024 MARY [facility], [address], [place], [address], 4 09:21:16 CMP, serum or plasma 2023 024 MARY [facility], [address], [place], [address], 4 09:21:14 lipid panel, serum 2023 024 MARY [facility], [address], [place], [address], 4 09:21:14 HbA1c (hemoglob in A1c), blood 2023 024 MARY In-Office Order, Internal Use Only DO Not Attach Compendium DO Not Attach Compendium, Do Not Delete/merge, [id number] 4 12:17:53 HbA1c (hemoglob in A1c), blood 2023 024 [facility] In-Office Order, Internal Use Only DO Not Attach Compendium DO Not Attach Compendium, Do Not Delete/merge, [id number] 4 11:21:12 Referral urologist referral 2023 024 akin Diaz MD, [address], [place], [address], 5 11:03:52 Procedures None recorded. Surgeries None recorded. Imaging None recorded. Medication Orders tramadol [address] [facility] #[id number], [address] [place], [address], 5 15:50:31 tramadol 50 mg tablet [address] [facility] #[id number], [address] [place], [address], 5 15:02:48 atorvasta tin 20 mg tablet 2024 025 [facility]armacy #[id number], [address] [place], [address], 5 15:43:14 metformin 500 mg tablet [address] [facility] #[id number], [address] [place], [address], 5 15:02:34 OneTouch Ultra Test strips [address] [facility] #[id number], [address] [place], [address], 5 15:02:37 sertralin e 100 mg tablet [address] [facility] #[id number], [address] [place], [address], 5 15:44:22 trazodone 100 [address] [id number] [address] [place], [address], 5 15:02:35 Stool Softener 100 [id number] [address] [place], [address], 5 15:03:02 omeprazol e 40 mg capsule,d elayed release [address] [id number] [address] [place], [address], 5 15:02:37 clindamyc in HCl 300 [address] capsule [address] [id number] [address] [place], [address], 5 15:04:43 Lantus Solostar U-100 Insulin 100 unit/mL (3 mL) subcutane ous pen 2024 025 [id number] [address] [place], [address], 5 16:23:37 tramadol 50 mg tablet 2023 024 [employer], [address] [place], [address], 4 15:15:52 nicotine 7 mg/24 hr daily transderm al patch 2023 024 [email or web address], [address], [place], [address], 5 14:39:31 Stool Softener 100 mg capsule 2023 024 [employer], [address], [place], [address], 11:22:19 Patient TargetsNo targets recorded. Patient Instructions Encounter Date Encounter Id Patient Instructions Last Modified By Organization Details Last Modified Time 07/26/2023 [id number] deciding about using medicines to quit smoking jnanney Not available 07/26/2023 11:21:10 Quitting Tobacco : Care Instructions jnanney Not available 07/26/2023 11:21:10 constipation: care instructions jnanney Not available 07/26/2023 11:21:10 A healthy lifestyle: care instructions jnanney Not available 07/26/2023 11:21:10 type 2 diabetes: care instructions jnanney Not available 07/26/2023 11:21:10 09/27/2023 [id number] A healthy lifestyle: care instructions jnanney Not available 09/27/2023 11:17:40 learning about type 2 diabetes jnanney Not available 09/27/2023 11:17:40 type 2 diabetes: care instructions jnanney Not available 09/27/2023 11:17:40 04/26/2024 [id number] A healthy lifestyle: care instructions jnanney Not available 04/26/2024 15:16:19 learning about type 2 diabetes jnanney Not available 04/26/2024 15:55:03 type 2 diabetes: care instructions jnanney Not available 04/26/2024 15:55:03 08/09/2024 [id number] A healthy lifestyle: care instructions jnanney Not available 08/09/2024 15:02:23 learning about high blood pressure jnanney Not available 08/09/2024 15:02:23 10/18/2024 [id number] A healthy lifestyle: care instructions jnanney Not [...] DO Not Attach Compendium, Do Not Delete/merge, [id number] 07/26/2023 09:23:11 09/27/19 24 09/28/2023 LIPID PANEL cholesterol, total 127 mg/dL 100-19 9 Not Available [address], [address], 09/28/2023 09:21:14 09/27/1909/28/2023 LIPID PANEL triglyceride s 135 mg/dL 0-149 Not Available [address], [address], 09/28/2023 09:21:14 09/27/1909/28/2023 LIPID PANEL HDL cholesterol 36 mg/dL >39 below low normal Not Available [address], [address], 09/28/2023 09:21:14 09/27/1909/28/2023 LIPID PANEL VLDL cholesterol quita 24 mg/dL 5-40 Not Available [address], [address], 09/28/2023 09:21:14 09/27/1909/28/2023 LIPID PANEL LDL chol calc ([facility]) 67 mg/dL 0-99 Not Available [address], [address], 09/28/2023 09:21:14 09/27/1909/28/2023 COMP. METAB OLIC PANEL (14) glucose 88 mg/dL 70-99 Not Available [address], [address], 09/28/2023 09:21:14 09/27/19 24 09/28/2023 COMP. METAB OLIC PANEL (14) BUN 10 mg/dL 6-24 Not Available [address], [address], 09/28/2023 09:21:14 09/27/19 24 09/28/2023 COMP. METAB OLIC PANEL (14) creatinine 0.69 mg/dL 0.76-1 .27 below low normal Not Available [address], [address], 09/28/2023 09:21:14 09/27/19 24 09/28/2023 COMP. METAB OLIC PANEL (14) eGFR 115 mL/mi n/1.7 3 >59 Not Available [address], [address], 09/28/2023 09:21:14 09/27/19 24 09/28/2023 COMP. METAB OLIC PANEL (14) BUN/creatini ne ratio 14 9-20 Not Available [address], [address], 09/28/2023 09:21:14 09/27/19 24 09/28/2023 COMP. METAB OLIC PANEL (14) sodium 140 mmol/ L 134-14 4 Not Available [address], [address], 09/28/2023 09:21:14 09/27/19 24 09/28/2023 COMP. METAB OLIC PANEL (14) potassium 4.4 mmol/ L 3.5-5. 2 Not Available [address], [address], 09/28/2023 09:21:14 09/27/19 24 09/28/2023 COMP. METAB OLIC PANEL (14) chloride 100 mmol/ L 96-106 Not Available [address] [place], [address], 09/28/2023 09:21:14 09/27/19 24 09/28/2023 COMP. METAB OLIC PANEL (14) carbon dioxide, total 26 mmol/ L Not Available [address], [address], 09/28/2023 09:21:14 09/27/19 24 09/28/2023 COMP. METAB OLIC PANEL (14) calcium 9.3 mg/dL 8.7-10 .2 Not Available [address], [address], 09/28/2023 09:21:14 09/27/19 24 09/28/2023 COMP. METAB OLIC PANEL (14) protein, total 7.5 g/dL 6.0-8. 5 Not Available [address], [address], 09/28/2023 09:21:14 09/27/1909/28/2023 COMP. METAB OLIC PANEL (14) albumin 4.4 g/dL 4.1-5. 1 Not Available [address], [address], 09/28/2023 09:21:14 09/27/19 24 09/28/2023 COMP. METAB OLIC PANEL (14) globulin, total 3.1 g/dL 1.5-4. 5 Not Available [address], [address], 09/28/2023 09:21:14 09/27/19 24 09/28/2023 COMP. METAB OLIC PANEL (14) A/G ratio 1.4 1.2-2. 2 Not Available [address], [address], 09/28/2023 09:21:14 09/27/19 24 09/28/2023 COMP. METAB OLIC PANEL (14) bilirubin, total 0.3 mg/dL 0.0-1. 2 Not Available [address], [address], 09/28/2023 09:21:14 09/27/19 24 09/28/2023 COMP. METAB OLIC PANEL (14) alkaline phosphatase 208 IU/L 44-121 above high normal Not Available [address], [address], 09/28/2023 09:21:14 09/27/19 24 09/28/2023 COMP. METAB OLIC PANEL (14) AST (SGOT) 18 IU/L 0-40 Not Available [address], [address], 09/28/2023 09:21:14 09/27/19 24 09/28/2023 COMP. METAB OLIC PANEL (14) ALT (SGPT) 30 IU/L 0-44 Not Available [address], [address], 09/28/2023 09:21:14 09/27/19 24 09/28/2023 CARDI OVASC ULAR REPOR T interpretati on Note Suppl morena diaz repor t is avail able. Not Available [address], [address], 09/28/2023 09:21:15 09/27/19 24 09/28/2023 CARDI OVASC ULAR REPOR T pdf . Not Available [address], [address], 09/28/2023 09:21:15 09/27/19 24 09/28/2023 CBC, PLATE LET, NO DIFFE RENTI AL WBC 6.0 x10e3 /uL 3.4-10 .8 Not Available [facility] & [address], [address], 09/28/2023 09:21:16 09/27/19 24 09/28/2023 CBC, PLATE LET, NO DIFFE RENTI AL RBC 5.09 x10e6 /uL 4.14-5 .80 Not Available [address], [address], 09/28/2023 09:21:16 09/27/1909/28/2023 CBC, PLATE LET, NO DIFFE RENTI AL hemoglobin 14.2 g/dL 13.0-1 7.7 Not Available [address], [address], 09/28/2023 09:21:16 09/27/1909/28/2023 CBC, PLATE LET, NO DIFFE RENTI AL hematocrit 43.5 % 37.5-5 1.0 Not Available [address], [address], 09/28/2023 09:21:16 09/27/1909/28/2023 CBC, PLATE LET, NO DIFFE RENTI AL MCV 86 fL 79-97 Not Available [address], [address], 09/28/2023 09:21:16 09/27/1909/28/2023 CBC, PLATE LET, NO DIFFE RENTI AL MCH 27.9 pg 26.6-3 3.0 Not Available [address], [address], 09/28/2023 09:21:16 09/27/1909/28/2023 CBC, PLATE LET, NO DIFFE RENTI AL MCHC 32.6 g/dL 31.5-3 5.7 Not Available [address] [place], [address], 09/28/2023 09:21:16 09/27/19 24 09/28/2023 CBC, PLATE LET, NO DIFFE RENTI AL RDW 14.2 % 11.6-1 5.4 Not Available [address], [address], 09/28/2023 09:21:16 09/27/19 24 09/28/2023 CBC, PLATE LET, NO DIFFE RENTI AL platelets 210 x10e3 /uL 150-45 0 Not Available [address], [address], 09/28/2023 09:21:16 09/27/19 24 09/27/2023 HbA1c (hemo globi n A1c), blood HbA1c 5.4 Not Available In-Office Order Internal Use Only DO Not Attach Compendium DO Not Attach Compendium, Do Not Delete/merge, [id number] 09/27/2023 11:17:21 04/26/20 24 04/26/2024 HbA1c (hemo globi n A1c), blood HbA1c 6.4 Not Available In-Office Order Internal Use Only DO Not Attach Compendium DO Not Attach Compendium, Do Not Delete/merge, [id number] 04/26/2024 09:02:00 08/09/1908/11/2024 LIPID PANEL cholesterol, total 155 mg/dL 100-19 9 Not Available [address], [address], 08/11/2024 10:10:40 08/09/19 25 08/11/2024 LIPID PANEL triglyceride s 307 mg/dL 0-149 above high normal Not Available [address], [address], 08/11/2024 10:10:40 08/09/19 25 08/11/2024 LIPID PANEL HDL cholesterol 40 mg/dL >39 Not Available [facility] [address], [address], 08/11/2024 10:10:40 08/09/1908/11/2024 LIPID PANEL VLDL cholesterol quita 49 mg/dL 5-40 above high normal Not Available [address], [address], 08/11/2024 10:10:40 08/09/1908/11/2024 LIPID PANEL LDL chol calc ([facility]) 66 mg/dL 0-99 Not Available [address], [address], 08/11/2024 10:10:40 08/09/19 25 08/11/2024 COMP. METAB OLIC PANEL (14) glucose 107 mg/dL 70-99 above high normal Not Available [address], [address], 08/11/2024 10:10:41 08/09/19 25 08/11/2024 COMP. METAB OLIC PANEL (14) BUN 16 mg/dL 6-24 Not Available [address], [address], 08/11/2024 10:10:41 08/09/19 25 08/11/2024 COMP. METAB OLIC PANEL (14) creatinine 0.70 mg/dL 0.76-1 .27 below low normal Not Available [address], [address], 08/11/2024 10:10:41 08/09/19 25 08/11/2024 COMP. METAB OLIC PANEL (14) eGFR 114 mL/mi n/1.7 3 >59 Not Available [address], [address], 08/11/2024 10:10:41 08/09/19 25 08/11/2024 COMP. METAB OLIC PANEL (14) BUN/creatini ne ratio 23 9-20 above high normal Not Available [address], [address], 08/11/2024 10:10:41 08/09/19 25 08/11/2024 COMP. METAB OLIC PANEL (14) sodium 137 mmol/ L 134-14 4 Not Available [address], [address], 08/11/2024 10:10:41 08/09/19 25 08/11/2024 COMP. METAB OLIC PANEL (14) potassium 4.7 mmol/ L 3.5-5. 2 Not Available [address], [address], 08/11/2024 10:10:41 08/09/19 25 08/11/2024 COMP. METAB OLIC PANEL (14) chloride 96 mmol/ L 96-106 Not Available [address], [address], 08/11/2024 10:10:41 08/09/19 25 08/11/2024 COMP. METAB OLIC PANEL (14) carbon dioxide, total 29 mmol/ L 20-29 Not Available [address], [address], 08/11/2024 10:10:41 08/09/19 25 08/11/2024 COMP. METAB OLIC PANEL (14) calcium 11.2 mg/dL 8.7-10 .2 above high normal Not Available [address], [address], 08/11/2024 10:10:41 08/09/19 25 08/11/2024 COMP. METAB OLIC PANEL (14) protein, total 7.4 g/dL 6.0-8. 5 Not Available [address] [place], [address], 08/11/2024 10:10:41 08/09/19 25 08/11/2024 COMP. METAB OLIC PANEL (14) albumin 4.3 g/dL 4.1-5. 1 Not Available [address], [address], 08/11/2024 10:10:41 08/09/19 25 08/11/2024 COMP. METAB OLIC PANEL (14) globulin, total 3.1 g/dL 1.5-4. 5 Not Available [address], [address], 08/11/2024 10:10:41 08/09/19 25 08/11/2024 COMP. METAB OLIC PANEL (14) bilirubin, total <0.2 mg/dL 0.0-1. 2 Not Available [address], [address], 08/11/2024 10:10:41 08/09/19 25 08/11/2024 COMP. METAB OLIC PANEL (14) alkaline phosphatase 183 IU/L 44-121 above high normal Not Available [address], [address], 08/11/2024 10:10:41 08/09/19 25 08/11/2024 COMP. METAB OLIC PANEL (14) AST (SGOT) 27 IU/L 0-40 Not Available [address], [address], 08/11/2024 10:10:41 08/09/19 25 08/11/2024 COMP. METAB OLIC PANEL (14) ALT (SGPT) 28 IU/L 0-44 Not Available [address], [address], 08/11/2024 10:10:41 08/09/1908/11/2024 CARDI OVASC ULAR REPOR T interpretati on Note Suppl morena diaz repor t is avail able. Not Available [address], [address], 08/11/2024 10:10:42 08/09/1908/11/2024 CARDI OVASC ULAR REPOR T pdf . Not Available [facility] & [address], [address], 08/11/2024 10:10:42 08/09/1908/11/2024 CBC, PLATE LET, NO DIFFE RENTI AL WBC 12.5 x10e3 /uL 3.4-10 .8 above high normal Not Available [address], [address], 08/11/2024 10:10:42 08/09/1908/11/2024 CBC, PLATE LET, NO DIFFE RENTI AL RBC 4.84 x10e6 /uL 4.14-5 .80 Not Available [address], [address], 08/11/2024 10:10:42 08/09/1908/11/2024 CBC, PLATE LET, NO DIFFE RENTI AL hemoglobin 12.9 g/dL 13.0-1 7.7 below low normal Not Available [address], [address], 08/11/2024 10:10:42 08/09/1908/11/2024 CBC, PLATE LET, NO DIFFE RENTI AL hematocrit 40.9 % 37.5-5 1.0 Not Available [address], [address], 08/11/2024 10:10:42 08/09/1908/11/2024 CBC, PLATE LET, NO DIFFE RENTI AL MCV 85 fL 79-97 Not Available [address], [address], 08/11/2024 10:10:42 08/09/19 25 08/11/2024 CBC, PLATE LET, NO DIFFE RENTI AL MCH 26.7 pg 26.6-3 3.0 Not Available [address], [address], 08/11/2024 10:10:42 08/09/1908/11/2024 CBC, PLATE LET, NO DIFFE RENTI AL MCHC 31.5 g/dL 31.5-3 5.7 Not Available [address], [address], 08/11/2024 10:10:42 08/09/19 25 08/11/2024 CBC, PLATE LET, NO DIFFE RENTI AL RDW 15.5 % 11.6-1 5.4 above high normal Not Available [address], [address], 08/11/2024 10:10:42 08/09/19 25 08/11/2024 CBC, PLATE LET, NO DIFFE RENTI AL platelets 267 x10e3 /uL 150-45 0 Not Available [address], [address], 08/11/2024 10:10:42 08/09/19 25 08/09/2024 HbA1c (hemo globi n A1c), blood HbA1c 6.2 Not Available In-Office Order Internal Use Only DO Not Attach Compendium DO Not Attach Compendium, Do Not Delete/merge, [id number] 08/09/2024 15:00:07 Result Notes None recorded. Problems [...] Updated DateTime 4 180.34 cm 30.7 kg/m2 33316.4 2 g 78 /min 96 % 96 % 126/74 mm[Hg] Yina Lorenzana [place] [facility] 4 11:04:36 Date Recorded Body height Body mass index (BMI) Body weight Oxygen saturation Oxygen saturation in Arterial blood by Pulse oximetry Heart rate Respiratory rate Systolic And Diastolic Provider Name and Address Organization Details Last Updated DateTime 5 180.34 cm 30.2 kg/m2 75390.3 9 g 98 % 98 % 78 /min 16 /min 118/76 mm[Hg] Theresa Pandey [place] [facility] 5 14:42:34 Date Recorded Body height Body mass index (BMI) Body weight Heart rate Oxygen saturation Oxygen saturation in Arterial blood by Pulse oximetry Systolic And Diastolic Provider Name and Address Organization Details Last Updated DateTime 4 180.34 cm 28.3 kg/m2 39535.2 5 g 79 /min 97 % 97 % 116/77 mm[Hg] Yina Lorenzana MA [facility] 4 10:50:53 Date Recorded Body height Body mass index (BMI) Body weight Respiratory rate Oxygen saturation Oxygen saturation in Arterial blood by Pulse oximetry Heart rate Systolic And Diastolic Provider Name and Address Organization Details Last Updated DateTime 5 180.34 cm 31.1 kg/m2 889573. 1 g 16 /min 96 % 96 % 88 /min 117/72 mm[Hg] Theresa Pandey MA [facility] 5 15:06:45 Date Recorded Body height Body mass index (BMI) Body weight Oxygen saturation Oxygen saturation in Arterial blood by Pulse oximetry Heart rate Systolic And Diastolic Provider Name and Address Organization Details Last Updated DateTime 4 180.34 cm 28.6 kg/m2 94778.5 4 g 95 % 95 % 102 /min 115/78 mm[Hg] Yina Lorenzana MA [facility] 4 15:01:26 Social History Question Answer Notes LastModified by Psydexizat ion Details LastModified Time Tobacco Smoking Status Current Every Day Smoker Ramya Bourgeois MA null, [facility] 03/16/2019 16:01:26 Are You Blind Or Do [...] 04/01/2020 Are you able to care for yourself independently? Yes Information not available 04/01/2020 What is your occupation? Disability Information not available 04/01/2020 Do you or have you ever used e-cigarettes or vape? Never used electronic cigarettes Information not available 01/04/2020 Mental Status Question Answer Note LastModified by Organization D etails LastModified Time Do you feel stressed (tense, restless, nervous, or anxious, or unable to sleep at night)? [id number] eino Information not available 01/09/2021 Family History Relationship Description Onset Age of this Age Resolved Age Notes LastModified by Organization Details LastModified Time Mother Kidney disease [email or web address] Not available 02/17 16:01:12 Medical History Condition Response Coronary Artery Disease N Other N Atrial Fibrillation N High Blood Pressure N Thyroid Problems N Kidney or Bladder Problems N GI Problems Y Depression Y COPD N Blood Clots N Eating Disorder N Skin Problems Y Anemia N Heart Attack (ND) N Anxiety Disorder N Diabetes Y Muscle, Joint, or Bone Problems N Seizures/Epilepsy N Acid Reflux (GERD) N Cancer N Stroke N Asthma N Allergies N ADHD N Substance Abuse N High Cholesterol N Hepatitis N Liver Disease N Schizophrenia N Heart Failure N Osteoporosis N Immunizations Vaccine Type Date Status Note Provider Nam e and Address Organization Details Recorded Time influenza, unspecified formulation 9 completed Not Available [facility] 07/04/2023 20:40:43 COVID-19, mRNA, LNP-S, PF, 30 mcg/0.3 mL dose 1 completed Not Available [facility] 07/04/2023 20:40:43 COVID-19, mRNA, LNP-S, PF, 30 mcg/0.3 mL dose 1 completed Not Available [facility] 07/04/2023 20:40:43 Influenza, split virus, quadrivalent, preservative 0 completed Lizabeth Nieves MA [facility], [place] - [facility] 06/04/2020 15:52:32 Past Encounters Encounter ID Performer Location Encounter Start Date Encounter Closed Date Diagnosis/Indication Diagnosis SNOMED-CT Code Diagnosis ICD10 Code Diagnosis Note [id number] [facility] [address] [place] [address] 03/16/2019 15:52:58 03/16/2019 16:29:51 Type 2 diabetes mellitus 82725722 E11.9 Hidradenit is suppurativa 80824139 L73.2 [id number] Nayana Peterson PA-C [facility] [address] [place] [address] 01/04/2020 10:45:28 01/07/2020 07:49:31 Type 2 diabetes mellitus 31268553 E11.9 [id number] Nayana Peterson PA-C [facility] [address] [place] [address] 04/01/2020 13:56:14 04/02/2020 11:45:35 Type 2 diabetes mellitus 68418726 E11.9 Cellulitis of left lower limb 4694177998 3000729 L03.168 [id number] Se Ram MD [facility] [address] [place] [address] 06/04/2020 15:21:14 06/04/2020 15:52:39 Type 2 diabetes mellitus without complication 155303234 E11.9 Type 2 kay betes mellitus 78962747 E11.9 Administra tion of influenza vaccine 11066879 Z23 [id number] Se Ram MD [facility] [address] [place] [address] 01/09/2021 10:24:15 01/12/2021 13:38:26 Hidradenitis suppurativa 83830618 L73.2 [id number] Nayana Peterson PA-C [facility] [address] [place] [address] 12/01/2021 15:04:09 12/01/2021 15:52:08 Type 2 diabetes mellitus 64781686 E11.9 Hidradenit is suppurativa 09606168 L73.2 Primary insomnia 3343120 F51.01 [id number] Se Ram MD [facility] [address] [place] [address] 01/05/2022 11:50:21 01/05/2022 12:28:46 Type 2 diabetes mellitus 57137843 E11.9 [id number] Nayana Peterson PA-C [facility] [address] [place] [address] 10/12/2022 14:24:10 10/13/2022 12:46:20 Type 2 diabetes mellitus 96903573 E11.9 Mixed hyperlipidemia 267 435400 E78.2 Seasonal a llergic rhinitis 029236554 J30.2 Overweight 270109339 E66 .3 [id number] Nayana Peterson PA-C [facility] [address] [place] [address] 07/26/2023 10:54:15 07/27/2023 09:55:19 Type 2 diabetes mellitus without complication 613715023 E11.9 Constipation 89504851 K5 9.09 Tobacco de pendence syndrome 21624033 F17.200 Overweight 032715347 E66 .3 [id number] Nayana Peterson PA-C [facility] [address] [place] [address] 09/27/2023 10:46:09 10/01/2023 12:06:56 Adult health examination 181901887 Z00.00 Type 2 kay betes mellitus 75428726 E11.9 Hidradenit is suppurativa 15690820 L73.2 Overweight 645722616 E66 .3 [id number] Nayana Peterson PA-C [facility] [address] [place] [address] 04/26/2024 14:45:21 05/03/2024 10:52:28 Type 2 diabetes mellitus 33264751 E11.9 Hidradenit is suppurativa 75216757 L73.2 Swelling of testicle 438 867662 N50.89 Overweight 270886032 E66 .3 [id number] Se Ram MD [facility] [address] [place] [address] 08/09/2024 14:24:27 08/13/2024 13:10:41 Type 2 diabetes mellitus 10848909 E11.9 Cellulitis of left lower limb 0637931699 5613195 L03.116 Constipation 70610531 K5 9.09 Type 2 kay betes mellitus without complication 159693934 E11.9 Hidradenit is suppurativa 34381159 L73.2 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 Gastroesop hageal reflux disease without esophagitis 503856141 K21.9 Essential hypertension 75310344 I10 Overweight 266981982 E66 .3 [id number] Se Ram MD [facility] [address] [place] [address] 10/18/2024 14:55:59 10/19/2024 11:04:05 Hidradenitis suppurativa 47392539 L73.2 cont prn..re evaluate after surgery Long-term drug therapy 559087399 Z79.891 Type 2 kay betes mellitus without complication 727172803 E11.9 cont current diabetic regimen Overweight [id number] E66 .3 Health Concerns Section Related Observation LastModified by Organization Detai ls LastModified Time None Recorded Concern Status LastModified by Organization Details LastModified Time None Recorded Advance Directives Directive None Recorded Payers Insurance Date Sequence Insurance Name Policy Number Policy Barnes Covered Member ID Barnes Member ID Guarantor Name 10/17/2024 1 [facility] (MEDICARE REPLACEMENT/AD VANTAGE - PPO) [id number] [place] [id number] [place] 10/17/2024 2 [place] WHEN MED[place]ARE OR MEDICARE REPLACEMENT PRIMARY) [place] [id number] [place] 08/09/2024 1 [place] [id number] [place] 08/09/2024 [place] [facility] [place] [id number] [place] Notes Date Note Type Note Provider Name and Address Organization Details Recorded Time 07/26/2023 text/html ROS as noted in the HPI has developed constipation for a month...sporadic large and very hard...no stool softener...also wants nicotine patch Nayana Peterson PA-C Attn: Accounting,[address] [facility], [place], [address], [facility] 07/26/2023 11:24:37 09/27/2023 text/html ROS as noted in the HPI recheck on diabetes..started cosentyx...needs labs...cosentyx has made his BS elevated Nayana Peterson PA-C Attn: Accounting,[address] [facility], [place], [address], [facility] 09/27/2023 11:18:35 04/26/2024 text/html ROS as noted in the HPI abscess on rt testicle..infectio n went to testicle..needs urology he was told Nayana Peterson PA-C Attn: Accounting,[address] [facility], [place], [address], [facility] 04/26/2024 15:16:30 08/09/2024 text/html ROS as noted in the HPI heart is beating irreg...fast then slow...getting heartburn now...denies N/V..denies chest pain or jaw pain..hx of diabetes htn..no family cardiac hx Lizabeth Nieves MA [facility], [facility] 08/09/2024 15:16:48 10/18/2024 text/html ROS as noted in the HPI hx of hydranitis supprativa..has one last surgery..uses tramadol vs pain for this..moved out of [facility] and living independant..hx of diabetes uses lantus and metformin Nayana Peterson PA-C Attn: Accounting,[address] [facility], [place], [address], [facility] 10/18/2024 15:51:51
--- OUTSIDE RECORDS SUMMARY | 2025-02-08 13:55 | XMS_ITS | Clinical Summary ---
Author Organization [facility] Address [address] [place] [address] Care Team Providers Care Radioactivity Technician Name Role Phone Attila Briggs MD Primary Care Provider [phone] Allergies Active Allergy Reactions Criticality Noted Date [...] recurrent, moderate 8 Chest pain 12/02/2017 Sepsis ([facility]) 12/02/2017 Resolved Problems Problem Noted Date Diagnosed [...] Documents on File Type Date Recorded Patient Director Of Manufacturing Expl anation Advance Directives and Living Will 12/10/2017 12:00 AM ADVANCED DIRECTIVES * Full Code (Latest Code Status on File) Date Activated Date Inactivated Comments 12/02/2017 4:45 PM 12/10/2017 7:28 PM Care Teams Radioactivity Technician Relationship Specialty Start Date End Date Attila Briggs MD [address] [place] [address] PCP - General INTERNAL MEDICINE 01/02/19
--- OUTSIDE RECORDS SUMMARY | 2025-02-08 13:55 | XMS_ITS | Referral Summary ---
Author Organization [facility] Address [address] [place] [address] Care Team Providers Care Jute Bag Clipper Name Role Phone Dominic Peterson Primary Care Provider [phone] Encounters Date Type Department Care Team Description 12/05/2024 Telephone [facility] Surgery [address] [facility] 6th [place] [address] Tiarra Batista Scheduling 11/30/2024 9:45 AM CDT Office Visit [facility] Surgery [address] [facility] 6th [place] [address] Josh Gruber MD Hidradenitis suppurativa of multiple sites (Primary Dx); Hidradenitis suppurativa 11/26/2024 Orders Only [facility] Dermatology [address] [place] [address] [address] [place] [address] Nick Llanos MD from Last [...] HEPATITIS C ANTIBODY Routine 07/14/2022 10:35 AM TRACK ANNOUNCER from Last 3 Months or Most Recently Relevant to Health Maintenance Results * Hepatitis C antibody (07/14/2022 10:35 AM TRACK ANNOUNCER) Hep C Ab Nonreactive Nonreactive [facility] [...] on 2019. Blood 07/14/2022 10:3 5 AM TRACK ANNOUNCER 07/14/2022 1:53 PM TRACK ANNOUNCER Nick Llanos MD LAB MICROBIOLOGY - GENERA L ORDERABLES Edited Result - Final [facility] [address] [place] [address] from Last 3 Months or Most Recently Relevant to Health Maintenance Insurance MEDICARE IDPA IDPA [facility] MEDICARE ADVANTAGE [facility] Address: [address] [address] [place] [address] [facility] MEDICARE ADVANTAGE [place] ID[place] [facility] MEDICARE ADVANTAGE [facility] Address: [address] [address] [place] [address] Advance Directives For more information, please contact: [phone] * Full Code (Latest Code Status on File) Date Activated Date Inactivated Comments 02/21/2024 11:02 AM 02/23/2024 6:13 PM Care Teams Jute Bag Clipper Relationship Specialty Start Date End Date Dominic Peterson PA [address] [place] [address] PCP - General Family Practice 05/11/22
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
--- OUTSIDE RECORDS SUMMARY | 2025-02-08 13:55 | XMS_ITS | Clinical Summary ---
Author Organization [facility] Address [address] [place] [address] Care Team Providers Care Washing Machine Loader And Puller Name Role Phone Dominic Peterson Primary Care Provider [phone] Allergies No known active allergies Medications ARIPiprazole [...] Type Department Care Team Description 12/05/2024 Telephone [facility] Surgery [address] [place] [address] 6th [place] [address] Tiarra Batista Scheduling 11/30/2024 9:45 AM CDT Office Visit [facility] Surgery [facility] 6th [place] [address] Josh Gruber MD Hidradenitis suppurativa of multiple sites (Primary Dx); Hidradenitis suppurativa 11/26/2024 Orders Only [facility] Dermatology [address] [facility] [address] [place] [address] Nick Llanos MD from Last 3 Months [...] HEPATITIS C ANTIBODY Routine 07/14/2022 10:35 AM PERFECT BIND MACHINE OPERATOR from Last 3 Months or Most Recently Relevant to Health Maintenance Results * Hepatitis C antibody (07/14/2022 10:35 AM PERFECT BIND MACHINE OPERATOR) Hep C Ab Nonreactive Nonreactive [facility] Comment: Interpretive Data Nonreactive: Antibodies to [...] on 2019. Blood 07/14/2022 10:3 5 AM PERFECT BIND MACHINE OPERATOR 07/14/2022 1:53 PM PERFECT BIND MACHINE OPERATOR us Nick Llanos MD LAB MICROBIOLOGY - [facility] L ORDERABLES Edited Result - Final [facility] [address] Department [place] [address] from Last 3 Months or Most Recently Relevant to Health Maintenance Insurance MEDICARE IDPA IDPA [facility] MEDICARE ADVANTAGE [place] [id number] [facility] MEDICARE ADVANTAGE [place] Member Subscriber Plan / Payer (Ef fective 2021-Present) Name:Chago Cao Relation to Subscriber:Self Name:CaoChago Payer ID:[id number] (NAIC) Type:MEDICARE [facility] OTHER Address: [place] [id number] [place] [id number] [facility] MEDICARE ADVANTAGE Advance Directives For more information, please contact: [phone] * Full Code (Latest Code Status on File) Date Activated Date Inactivated Comments 02/21/2024 11:02 AM 02/23/2024 6:13 PM Care Teams Washing Machine Loader And Puller Relationship Specialty Start Date End Date Dominic Peterson PA [address] [place] [address] PCP - General Family Practice 05/11/22
[2025-02-08 14:24] LABS: Cannabinoid Screen Urine Positive (Negative)
== END 2025-02-08 13:52 | disposition home or self-care (01) ==
LOC: CHSIMG 13:52
PROVIDERS: PCP Family Medicine; Visit Provider Family Medicine
DX: R55 Syncope and collapse (principal); I65.23 Occlusion and stenosis of bilateral carotid arteries; R42 Dizziness and giddiness; E55.9 Vitamin D deficiency, unspecified; Z79.891 Long term (current) use of opiate analgesic
CPT/HCPCS: 80307; 93880

== ENCOUNTER 2025-02-14 09:57 | Outpatient (CLI) | payer MEDICARE, MEDICAID, SELFPAY ==
--- NOTE | ~2025-02-14 | XR_ITS ---
Lumbosacral Spine: AP and lateral views Clinical History: Pain Findings: The normal lordotic curve is maintained. The vertebral bodies and posterior elements are i ntact. The intervertebral disc spaces are preserved. There is mild to moderate facet arthropathy at the lower lumbar spine. The sacroiliac joints are normally outlined. Impression: Facet arthropathy, as above. Reviewed, dictated and finalized at location . Impression: Facet arthropathy, as above.
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
--- OUTSIDE RECORDS SUMMARY | 2025-02-14 10:08 | XMS_ITS | Clinical Summary ---
Author Organization [facility] Address [address] [place] [address] Care Team Providers Care Vp Analysis Name Role Phone Attila Briggs MD Primary Care Provider [phone] Allergies Active Allergy Reactions Criticality Noted Date [...] recurrent, moderate 8 Chest pain 12/02/2017 Sepsis ([facility]) 12/02/2017 Resolved Problems Problem Noted Date Diagnosed [...] Documents on File Type Date Recorded Patient Registration Specialist Expl anation Advance Directives and Living Will 12/10/2017 12:00 AM ADVANCED DIRECTIVES * Full Code (Latest Code Status on File) Date Activated Date Inactivated Comments 12/02/2017 4:45 PM 12/10/2017 7:28 PM Care Teams Vp Analysis Relationship Specialty Start Date End Date Attila Briggs MD [address] [place] [address] PCP - General INTERNAL MEDICINE 01/02/19
--- OUTSIDE RECORDS SUMMARY | 2025-02-14 10:09 | XMS_ITS | Patient Health Record ---
Author Organization [facility] [employer] Address [address] [place] [address] Care Team Providers Care Semiconductor Processor Name Role Phone Diya Ruiz Unavailable [phone] Reason For Referral No Information Medications Medication SIG (Take, Route, Frequency, Duration) Notes Start Date End Date Status HUMIRA(CF) PEN CROHN'S-ULC COLITIS-HID SUP STRT 80 MG/0.8 ML SUBCUT KT *Reorder from [employer] for eRx and Interaction Alerts* 10/08/2022 Active Omeprazole 40 MG Oral 10/08/2022 Ac tive Triamcinolone Acetonide 0.1% External 10/08/2022 Active Nystatin 436531 UNIT/GM External 10/08/2022 Active OneTouch Ultra In Vitro 10/08/2022 Acti ve Diclofenac Sodium 50 MG Oral 10/08/2022 Active Clindamycin HCl 300 MG Oral 10/08/2022 Active Acetaminophen Extra Strength 500 MG Oral 10/08/2022 Active OneTouch Ultra 2 w/Device 10/08/2022 Active Remicade 100 MG Intravenous 10/08/2022 A ctive Levemir FlexTouch 100 UNIT/ML Subcutaneous 10/08/2022 Active OneTouch Ultra Blue In Vitro 10/08/2022 Active OneTouch Delica Plus [id number] 10/08/2022 Active traZODone HCl 100 MG Oral 10/08/2022 Active traMADol HCl 50 MG Oral 10/08/2022 Active TECHLITE PEN NEEDLE 32 gauge x MISCELLANEOUS *Reorder from [employer] for eRx and Interaction Alerts* 10/08/2022 Active TAB-A-JEANETTE MULTIVITAMIN W-IRON 15 MG IRON-400 MCG TABLET *Reorder from [facility] for eRx and Interaction Alerts* 10/08/2022 Active MUCUS ER 600 mg Oral *[facility] and Interaction Alerts* 10/08/2022 Active predniSONE 10 MG Oral 10/08/2022 Ac tive HUMIRA(CF) PEN 40 MG/0.4 ML SUBCUTANEOUS KIT *Reorder from [facility] for eRx and Interaction Alerts* 10/08/2022 Active ARIPiprazole 10 MG Oral 10/08/2022 Active Levemir FlexPen 100 unit/mL (3 mL) SUBCUTANEOUS *Reorder from [facility] for eRx and Interaction Alerts* 10/08/2022 [...] Insured Coverage Start Date Coverage End Date [facility] Medicare Replacement/ Advantage - Ppo [address] [address] [place] [address] [id number] JAMAR ZELAYA Self - patient is the insured [place] [address] [address] [place] [address] [id number] JAMAR ZELAYA Self - patient is the insured
--- OUTSIDE RECORDS SUMMARY | 2025-02-14 10:09 | XMS_ITS | Clinical Summary ---
Author Organization [facility] Address [address] [place] [address] Care Team Providers Care Applications Programmer Analyst Name Role Phone Dominic Peterson Primary Care Provider [phone] Allergies No known active allergies Medications ARIPiprazole [...] Type Department Care Team Description 12/05/2024 Telephone [facility] [address] [place] [address] 6th [place] [address] Tiarra Batista Scheduling 11/30/2024 9:45 AM CDT Office Visit [facility] 6th [place] [address] [place] [address] Josh Gruber MD Hidradenitis suppurativa of multiple sites (Primary Dx); Hidradenitis suppurativa 11/26/2024 Orders Only [facility] [address] [facility] [address] [place] [address] Nick Llanos MD from Last 3 Months [...] HEPATITIS C ANTIBODY Routine 07/14/2022 10:35 AM 911 DISPATCHER from Last 3 Months or Most Recently Relevant to Health Maintenance Results * Hepatitis C antibody (07/14/2022 10:35 AM 911 DISPATCHER) Hep C Ab Nonreactive Nonreactive [facility] Comment: Interpretive Data Nonreactive: Antibodies to HCV [...] on 2019. Blood 07/14/2022 10:3 5 AM 911 DISPATCHER 07/14/2022 1:53 PM 911 DISPATCHER us Nick Llanos MD LAB MICROBIOLOGY - [facility] L ORDERABLES Edited Result - Final [facility] [address] Department [place] [address] from Last 3 Months or Most Recently Relevant to Health Maintenance Insurance MEDICARE IDPA IDPA [facility] MEDICARE ADVANTAGE [facility] Address: [facility] [address] [place] [id number] [facility] MEDICARE ADVANTAGE [place] [facility] OTHER Address: [place] [id number] [place] [id number] [facility] MEDICARE ADVANTAGE [facility] Address: [address] [address] [place] [address] Advance Directives For more information, please contact: [phone] * Full Code (Latest Code Status on File) Date Activated Date Inactivated Comments 02/21/2024 11:02 AM 02/23/2024 6:13 PM Care Teams Applications Programmer Analyst Relationship Specialty Start Date End Date Dominic Peterson PA [address] [place] [address] PCP - General Family Practice 05/11/22
--- OUTSIDE RECORDS SUMMARY | 2025-02-14 10:09 | XMS_ITS | Referral Summary ---
Author Organization [facility] Address [address] [place] [address] Care Team Providers Care Jewelry Sales Associate Name Role Phone Dominic Peterson Primary Care Provider [phone] Encounters Date Type Department Care Team Description 12/05/2024 Telephone [facility] Surgery [address] [facility] Advanced Medicine 6th [place] [address] Tiarra Batista Scheduling 11/30/2024 9:45 AM CDT Office Visit [facility] Surgery [address] [facility] 6th [place] [address] Josh Gruber MD Hidradenitis suppurativa of multiple sites (Primary Dx); Hidradenitis suppurativa 11/26/2024 Orders Only [facility] Dermatology [address] [place] [address] [address] [place] [address] Nick Llanos MD from Last [...] HEPATITIS C ANTIBODY Routine 07/14/2022 10:35 AM RETORT ENGINEER from Last 3 Months or Most Recently Relevant to Health Maintenance Results * Hepatitis C antibody (07/14/2022 10:35 AM RETORT ENGINEER) Hep C Ab Nonreactive Nonreactive [facility] Comment: Interpretive Data Nonreactive: Antibodies to HCV [...] on 2019. Blood 07/14/2022 10:3 5 AM RETORT ENGINEER 07/14/2022 1:53 PM RETORT ENGINEER Nick Llanos MD LAB MICROBIOLOGY - GENERA L ORDERABLES Edited Result - Final [facility] [address] Department [place] [address] from Last 3 Months or Most Recently Relevant to Health Maintenance Insurance MEDICARE IDPA IDPA [facility] MEDICARE ADVANTAGE [facility] Address: [address] [address] [place] [address] [facility] MEDICARE ADVANTAGE [place] IDPA [facility] MEDICARE ADVANTAGE [facility] Address: [address] [address] [place] [address] Advance Directives For more information, please contact: [phone] * Full Code (Latest Code Status on File) Date Activated Date Inactivated Comments 02/21/2024 11:02 AM 02/23/2024 6:13 PM Care Teams Jewelry Sales Associate Relationship Specialty Start Date End Date Dominic Peterson PA [address] [place] [address] PCP - General Family Practice 05/11/22
== END 2025-02-14 09:58 | disposition home or self-care (01) ==
PROVIDERS: PCP Family Medicine; Visit Provider Family Medicine
DX: M54.16 Radiculopathy, lumbar region (principal); M47.817 Spondylosis without myelopathy or radiculopathy, lumbosacral region
CPT/HCPCS: 72100

== ENCOUNTER 2025-03-25 08:56 | Emergency (ER) | payer MEDICARE, SELFPAY ==
--- OUTSIDE RECORDS SUMMARY | 2016-04-13 13:20 | XMS_ITS | Continuity of Care Document ---
Author Organization [facility] Address [address] [place] [address] Phone Care Team Providers Care Weatherization Installer Name Role Phone Unavailable Unavailable Unavailable Allergies, [...] Copied on Encounter Level IV, Est. Patient [facility], [address] [place], [place], [id number] , tel:[phone] [facility] diabetes (chief complaint) Diabetes type 2, uncontrolledNeurop athyBMI 25.0-25.9,adult Mar-201 6 No Information Level IV, Est. Patient [facility], [address] [place], [place], [id number] , tel:[phone] [facility] Diabetes (chief complaint) Acne Inversa (chief complaint) Acne inversaDiabetes type 2, uncontrolledNeurop athy 6 No Information [facility], [address] [place], [place], [id number] , tel:[phone] [facility] No Information 6 No Information Level IV, Est. Patient [facility], [address] [place], [place], [id number] , tel:[phone] [facility] Discuss lab results (chief complaint) Diabetes type 2, uncontrolledConsti pation, chronicAcne inversa 6 No Information Level IV, New Patient [facility], [address] [place], [place], [id number] , tel:[phone] [facility] Skin lesion (chief complaint) diabetes (chief complaint) Diabetes type 2, uncontrolledNeurop athyAcne inversaConstipatio n, chronic 6 No Information Family History Family Member Type Diagnosis Age At Onset Mother Problem (finding) kidney disease Payers Payer name Insurance type Covered alliance party ID Authoriza tion(s) No Information Social History [...] ordered Referral Referred To: [facility] Us [address] [place], [place] [phone] Ordered: Referrals: Dermatology. [facility] Us. Evaluate and treat ordered Referral Ordered: Referrals: Dermatology. Evaluate and treat ordered Referral Referred To: [facility] [address], [place] [id number] Ordered: Referrals: Dermatology. Viet Pizano. Evaluate and treat ordered Referral Ordered: Referrals: Ophthalmology. Evaluate and treat ordered Future Order: Lab Order CBC with Auto Diff ([id number]), Ordered on: Ordered Future Order: Lab Order CMP(COMP METABOLIC PANEL W/GFR) ([id number]), Ordered on: Ordered Future Order: Lab Order Culture Wound ([id number]), Ordered on: Ordered Future Order: Lab Order [...] painful. He was Rx'd Bactrim by his Engine Lathe Operator but his new insurance denied it. he [...] Inversa (comments) Patient was [facility] Bactrim [facility], but his insurance wouldn't cover it. Patient [...] is not helping him with the constipation. Skin lesion The patient pres ents with [...] the area and needs meds refilled also. Skin lesion (comments) The patie nt moved here from [place] in May. States that he has a skin condition that he takes oral antibiotics daily. He last saw his database manager in March 2015. He last saw his provider in April 2015. States that the database manager told him they were planning to do [...] his blood glucose has been running 160-270. diabetes The diabetes sallie jacoby began in 2012. Patient did not use medication. He Has been managed with oral medications. Associated symptoms include: blurred vision, burning of extremities, constant hunger, dental disease, diarrhea, dyspnea, frequent infections, heartburn, increased fatigue, polydipsia and slow healing wounds/sores. Pertinent negatives include foot ulcers, frequent urination, hypoglycemic episodes, weight gain and weight loss. Functional Status Date Functional Assessmen t No [...] Mental Status Date Cognitive Assessment Orientation - [place] ed to time, place, person, situation. Patient Care Teams Name Effective Dates (start - stop) Status Members No Information
[2025-03-25] VITALS (16 sets, daily range): BP systolic 106–131; BP diastolic 73–96; PULSE 62–76; RESP 14–21; TEMP 36.5–36.7; O2SAT 90–97
--- NOTE | ~2025-03-25 | XR_ITS ---
Examination: XR chest 2V Clinical History: sob Comparison: X-rays 10/31/2018 Technique: PA and Lateral Findings: Cardiomediastinal silhouette normal size and configuration. Linear atelectasis right midlung. Elevated right hemidiaphragm with associated basilar atelectasis. Lungs otherwise clear. No acute bony abnormality. IMPRESSION: 1. No acute cardiopulmonary findings. Reviewed, dictated and finalized at location A.
--- NOTE | 2025-03-25 08:58 | ECG_ITS ---
Test Date: 2025-03-25 09:03:22 Measurements Intervals University Rate: 70 P: 79 UT: 155 QRS: 81 QRSD: 93 T: 82 QT: 381 QTc: 412 Interpretive Statements SINUS RHYTHM No previous ECG available for comparison Electronically Signed On 03-25-2025 10:38:52 CDT by Manas Wilkes M.D.
--- NOTE | 2025-03-25 08:58 | ED.CHESTPAIN ---
HPI - Chest Pain General Chief Complaint: Upper Respiratory Infection Stated Complaint: cough and congestion Time Seen by Provider: 03/25/25 08:58 Source: patient Mode of arrival: EMS Limitations: no limitations History of Present Illness HPI narrative: Patient is a 49-year-old male with cough with congestion and chest pain and shortness of breath for the past 4 days. He has yellow to green phlegm. MD complaint: chest pain (Midline chest with breathing) Pertinent past history: other (Hyperlipidemia, diabetes 2) Onset (ago): day(s) (4) Timing of current episode: constant and still present Prior episodes: No Onset: during rest, during exertion, after eating and awoke with symptoms Pain location: substernal (Centrally located) Pain radiation: none Severity: mild Pain scale (0-10): 3 Quality: tightness and fullness Relieving factors: nothing Exacerbating factors: nothing Context: other (Patient having chest congestion with shortness of breath and chest pain and discolored phlegm for the past 4 days) Associated symptoms: dyspnea and cough Treatment prior to arrival: aspirin Risk Factors Coronary artery disease risk factors: diabetes and hyperlipidemia Thoracic aortic dissection risk factors: none Related Data Home Medications ?Medication ?Instructions ?Recorded ?Confirmed ?Last Taken ?Type acetaminophen 500 mg capsule 500 mg PO TID PRN Pain (Scale 02/15/23 02/18/23 Unknown History (Mapap (acetaminophen)) Score 1-3) atorvastatin 20 mg tablet 20 mg PO DAILY 02/15/23 02/18/23 Unknown History metformin 500 mg tablet 500 mg PO BID 02/15/23 02/18/23 Unknown History omeprazole 40 mg capsule,delayed 40 mg PO BID 02/15/23 02/18/23 Unknown History release sertraline 100 mg tablet 150 mg PO HS 02/15/23 02/18/23 Unknown History trazodone 100 mg tablet 150 mg PO HS 02/15/23 02/18/23 Unknown History docusate sodium 100 mg capsule 100 mg PO BID 03/25/25 Unknown History empagliflozin 25 mg tablet 25 mg PO DAILY 03/25/25 Unknown History (Jardiance) insulin glargine 100 unit/mL (3 20 unit subcut QPM 03/25/25 Unknown History mL) subcutaneous pen (Lantus Solostar U-100 Insulin) polyethylene glycol 3350 17 17 g PO DAILY 03/25/25 Unknown History gram/dose oral powder prazosin 2 mg capsule 2 mg PO HS 03/25/25 Unknown History sodium chloride 1,000 mg soluble 1,000 mg PO BID 03/25/25 Unknown History tablet Allergies Allergy/AdvReac Type Severity Reaction Status Date / Time vancomycin AdvReac Other Verified 01/02/25 08:19 Review of Systems Review of Systems: All systems reviewed & are unremarkable except as noted in HPI and below Constitutional: Constitutional: Reports no additional constitutional complaints Eyes: Eyes: Reports no additional eye complaints ENT: Reports system reviewed and no additional complaints, except as documented Cardiovascular: Cardiovascular: Reports no additional cardiovascular complaints Respiratory: Respiratory: Reports no additional respiratory complaints Gastrointestinal: Gastrointestinal: Reports no additional gastrointestinal complaints Genitourinary: Genitourinary: Reports no additional male genitourinary complaints Musculoskeletal: Musculoskeletal: Reports no additional musculoskeletal complaints Integumentary/Breasts: Skin/Breast: Reports system reviewed and no additional complaints, except as docu Neurologic: Reports system reviewed and no additional complaints, except as documented Psychiatric: Psychiatric: Reports no additional psychiatric complaints Endocrine: Endocrine: Reports no additional endocrine complaints Hematologic/Lymphatic: Hematologic/Lymphatic: Reports no additional hematologic/lymphatic complaints Allergic/Immunologic: Allergic/Immunologic: Reports no additional allergic/immunologic complaints Exam Const: General: healthy appearing Nutritional Appearance: well nourished Orientation/consciousness: patient oriented x3 HENMT: Head: normal to inspection Ears: external ears normal Face/Nose/Sinus: Normal external nose present Eyes: Conjunctivae: conjunctivae normal Pupils: Equal, round and reactive pupils present EOM: EOMs intact bilaterally Neck: Neck: normal visual inspection Chest: Chest palpation & inspection: normal inspection of the chest Resp: Effort & Inspection: normal respiratory effort and not labored Auscultation: clear to auscultation bilaterally, no crackles and breath sounds absent (Lower lung) on the right Cardio: Rate: regular rate Rhythm: regular rhythm Heart sounds: no murmurs GI: Inspection: non-distended GI Palp: Yes Soft to palpation and No Tenderness to palpation present (GI) Auscultation: normal bowel sounds : General: Yes bladder normal to palpation Back/Spine/Pelvis: Back: no CVA tenderness Skin: General skin exam: normal color Rashes: no rashes Wounds: no wounds Neuro: General: patient oriented x3, moves all extremities, no meningeal signs, no focal motor deficits and CN's II-XI intact bilaterally Extrem: General: normal to inspection Psych: Mental Status: mental status grossly normal Affect: normal affect Attitude: cooperative Course Vital Signs Vital signs: Vital Signs Temperature 36.5 C 03/25/25 09:04 Pulse Rate 76 03/25/25 09:04 Respiratory Rate 20 03/25/25 09:04 Blood Pressure 131/96 H 03/25/25 09:04 Pulse Oximetry 96 03/25/25 09:04 Oxygen Delivery Room Air 03/25/25 09:04 Temperature 36.5 C 03/25/25 09:04 Pulse Rate 63 03/25/25 09:39 Respiratory Rate 20 03/25/25 09:39 Blood Pressure 110/76 03/25/25 09:39 Pulse Oximetry 97 03/25/25 09:39 Oxygen Delivery Room Air 03/25/25 09:39 MDM - Chest Pain MDM Narrative Medical decision making narrative: Patient is a 49-year-old male with chest pain and shortness of breath with cough and congestion for the past 4 days. We will do a cardiopulmonary workup at this time. Lab Data Attestation: I reviewed the patient's lab results. 03/25/25 09:34 03/25/25 09:34 Labs: Lab Results 03/25/25 03/25/25 Range/Units 09:23 09:34 WBC 6.5 (4.8-10.8) K/mm3 RBC 4.46 L (4.70-6.10) M/mm3 Hgb 11.8 L (14.0-18.0) g/dL Hct 37.4 L (40.0-54.0) % MCV 83.9 (78.0-102.0) fL MCH 26.5 L (27.0-31.0) pg MCHC 31.6 L (32-36) g/dL RDW 14.6 H (11.6-14.4) % Plt Count 162 (150-420) K/mm3 MPV 9.5 (8.7-11.0) fl Immature Gran % (Auto) 0.3 H (0.0-0.0) % Neut % (Auto) 83.9 H (50.0-70.0) % Lymph % (Auto) 7.3 L (18.0-42.0) % Woodruff % (Auto) 6.3 (2.0-11.0) % Eos % (Auto) 1.9 (1.0-6.0) % Baso % (Auto) 0.3 (0.0-1.0) % Lymph # (Auto) 0.47 L (1.10-4.50) K/mm3 Woodruff # (Auto) 0.41 (0.10-0.90) K/mm3 Eos # (Auto) 0.12 (0.02-0.50) K/mm3 Baso # (Auto) 0.02 (0.00-0.10) K/mm3 Abs Immat Gran (auto) 0.02 H (0.00-0.00) K/mm3 Absolute Neuts (auto) 5.44 (1.70-7.20) K/mm3 Absolute Nucleated RBC 0.00 (0.00-0.00) K/mm3 Nucleated RBC % 0.0 (0-0.0) % D-Dimer 0.29 (0.19-0.50) mg/L Sodium 140 (137-145) mmol/L Potassium 4.3 (3.4-5.0) mmol/L Chloride 104 (98-107) mmol/L Carbon Dioxide 27 (22-30) mmol/L Anion Gap 9 (4-12) mmol/L BUN 13 (9-20) mg/dL Creatinine 0.70 (0.7-1.3) mg/dL Estim Creat Clear Calc 115 ml/min Estimated GFR > 60 (59 - ) Glucose 143 H (65-110) mg/dL Calculated Osmolality 292 (285-295) mOsm/kg Calcium 10.0 (8.4-10.2) mg/dL Total Bilirubin 0.7 (0.2-1.3) mg/dL AST 25 (17-59) U/L ALT 22 (6-50) U/L Alkaline Phosphatase 132 H (38-126) U/L Troponin I < 0.012 (0.000-0.034) ng/mL NT-Pro-B Natriuret Pep 172 H (19.9-100) pg/mL Total Protein 7.6 (6.3-8.2) g/dL Albumin 4.4 (3.5-5.1) g/dL Lipase 39 (23-300) U/L Influenza A (RT-PCR) Negative (Negative) Influenza B (RT-PCR) Negative (Negative) RSV (RT-PCR) Negative (Negative) SARS-CoV-2 RNA (RT-PCR) Negative (Negative) Imaging Data Attestation: I personally reviewed and interpreted this imaging study as follows: Radiologist's impression: Chest x-ray is negative for acute process ECG Data EKG #1: Attestation: I personally reviewed and interpreted this ECG as follows: ECG completion date: 03/25/25 ECG completion time: 09:18 EKG Interpretation: normal rate, sinus rhythm, no ectopy, non-specific ST changes, normal QRS, normal QT, NL axis and no acute changes Discharge Plan Discharge Clinical Impression: Acute bacterial bronchitis Patient Disposition: Home Condition: Stable Instructions: Antibiotic Form, Acute Bronchitis (ED) Patient Language: Romanian Prescriptions: New prednisone 20 mg tablet 40 mg PO DAILY 4 Days Qty: 8 0RF amoxicillin-pot clavulanate 875-125 mg tablet 1 tablet PO BID 10 Days Qty: 20 0RF No Action metformin 500 mg tablet 500 mg PO BID atorvastatin 20 mg tablet 20 mg PO DAILY sertraline 100 mg tablet 150 mg PO HS omeprazole 40 mg capsule,delayed release(DR/EC) 40 mg PO BID trazodone 100 mg tablet 150 mg PO HS acetaminophen [Mapap (acetaminophen)] 500 mg Capsule 500 mg PO TID PRN (Reason: Pain (Scale Score 1-3)) Jardiance 25 mg tablet 25 mg PO DAILY polyethylene glycol 3350 17 gram/dose powder 17 g PO DAILY docusate sodium 100 mg capsule 100 mg PO BID sodium chloride 1,000 mg tablet,soluble 1,000 mg PO BID insulin glargine [Lantus Solostar U-100 Insulin] 100 unit/mL (3 mL) insulin pen 20 unit subcut QPM prazosin 2 mg capsule 2 mg PO HS Follow-up/Referrals: Se Stinson MD [Primary Care Provider, Internal Medicine] Time of Disposition: 10:46
--- OUTSIDE RECORDS SUMMARY | 2025-03-25 09:06 | XMS_ITS | Clinical Summary ---
Author Organization [facility] Address [address] [place] [address] Care Team Providers Care Major Assembly Inspector Name Role Phone Attila Briggs MD Primary Care Provider [phone] Allergies Active Allergy Reactions Criticality Noted Date [...] recurrent, moderate 8 Chest pain 12/02/2017 Sepsis ([facility]) 12/02/2017 Resolved Problems Problem Noted Date Diagnosed Date Resolved Date Suicidal ideation 12/07/2017 12/08/2017 Encounters Date Type Department Care Team Description 03/06/[address] [facility] [place] [address] [place] [address] Eleonora Faye MD from Last 3 Months Family History Medical History Relation Comments Cancer [...] 05/09/2019 9:59 AM CDT Plan of Treatment Upcoming Encounters Date Type Department Care Team (Late st Contact Info) Description 03/27/2025 1:00 PM CDT Appointment [facility] [place] [address] [place] [address] Eleonora Faye MD [address] [place] [address] Health Maintenance Due Date Last Done Comments Colorectal Cancer Screening Colonoscopy (10 Years) 1976 Annual Physical 1979 Hepatitis C 1994 DTaP, Tdap and Td Vaccines ( 1 - Tdap) 1995 Hepatitis B Vaccines (1 of 3 - 19+ 3-dose series) 1995 COVID-19 Vaccine (2023-2 5 season) 2025 Meningococcal B Vaccine Aged Out No l [...] patient's age to complete this topic Insurance [place] [address] [place] [address] Advance Directives Documents on File Type Date Recorded 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
--- OUTSIDE RECORDS SUMMARY | 2025-03-25 09:06 | XMS_ITS | Clinical Summary ---
Author Organization [facility] Address [address] [place] [address] Care Team Providers Care Resaw Tailer Name Role Phone Dominic Peterson Primary Care Provider [phone] Allergies No known active allergies Medications ARIPiprazole [...] a day before meals. 02/23/20 22 Discontin ued(Formu alyssa change) Active Problems Problem Noted Date [...] with sta tin Type 2 diabetes mellitus Family History Medical History Relation Name Comments [...] Visit/Exam 18-64 1994 Covid-19 Vaccine ( season) 2025 07/16/2021, 09/25/2020, 09/05/2020 Influenza Vaccine (#1) 2025 3, 04/25/2022, 05/28/2021, Additional history exists Hepatitis C Screening Completed 07/14/2022, 022 Pneumococcal vaccine <65 Aged Out No longer eligible based on patient's age to complete this topic Procedures Procedure Name Priority Date/Time Associated Diagnosis Comments HEPATITIS C ANTIBODY Routine 07/14/2022 10:35 AM INTERNATIONAL STUDENT ADVISOR from Last 3 Months or Most Recently Relevant to Health Maintenance Results * Hepatitis C antibody (07/14/2022 10:35 AM INTERNATIONAL STUDENT ADVISOR) Hep C Ab Nonreactive Nonreactive [facility] Comment: Interpretive Data Nonreactive: Antibodies to [...] on 2019. Blood 07/14/2022 10:3 5 AM INTERNATIONAL STUDENT ADVISOR 07/14/2022 1:53 PM INTERNATIONAL STUDENT ADVISOR us Nick Llanos MD LAB MICROBIOLOGY - GENERA L ORDERABLES Edited Result - Final [facility] [address] Department [place] [address] from Last 3 Months or Most Recently Relevant to Health Maintenance Insurance MEDICARE IDPA IDPA [place] MEDICARE ADVANTAGE [place] MEDICARE ADV[place]AGE [place] IDPA [place] MEDICARE ADVANTAGE Advance Directives For more information, please contact: [phone] * Full Code (Latest Code Status on File) Date Activated Date Inactivated Comments 02/21/2024 11:02 AM 02/23/2024 6:13 PM Care Teams Resaw Tailer Relationship Specialty Start Date End Date Dominic Peterson PA [address] [place] [address] PCP - General Family Practice 05/11/22
--- NOTE | 2025-03-25 09:26 | PC.NURSE ---
Covid culture sent to lab
[2025-03-25 09:37] LABS: Hematocrit 37.4 % (40.0-54.0); Hemoglobin 11.8 g/dL (14.0-18.0); Immature Granulocyte Percent A 0.3 % (0.0-0.0); Lymphocytes Absolute Auto 0.47 K/mm3 (1.10-4.50); Mean Corpuscular HGB Conc 31.6 g/dL (32-36); Mean Corpuscular Hemoglobin 26.5 pg (27.0-31.0); Mean Corpuscular Volume 83.9 fL (78.0-102.0); Nucleated Red Blood Cells Absolute Auto 0.00 K/mm3 (0.00-0.00); Nucleated Red Blood Cells Perc 0.0 % (0-0.0); Platelet Count Result 162 K/mm3 (150-420); Red Blood Count 4.46 M/mm3 (4.70-6.10); White Blood Count 6.5 K/mm3 (4.8-10.8)
--- OUTSIDE RECORDS SUMMARY | 2025-03-25 09:38 | XMS_ITS | Patient Health Record ---
Author Organization [facility] Address [address] [place] [address] Care Team Providers Care Specialty Finishing Utility Person Name Role Phone Diya Ruiz Unavailable [phone] Reason For Referral No Information Medications Medication SIG (Take, Route, Frequency, Duration) Notes Start Date End Date Status HUMIRA(CF) PEN CROHN'S-ULC COLITIS-HID SUP STRT 80 MG/0.8 ML SUBCUT KT *Reorder from [facility] for eRx and Interaction Alerts* 10/08/2022 Active Omeprazole 40 MG Capsule Delayed Release Oral 10/08/2022 Active Triamcinolone Acetonide 0.1% Cream External 10/08/2022 Active Nystatin 411574 UNIT/GM Powder External 10/08/2022 Active OneTouch Ultra Strip In Vitro 10/08/2022 Active Diclofenac Sodium 50 MG Tablet Delayed Release Oral 10/08/2022 Active Clindamycin HCl 300 MG Capsule Oral 10/08/2022 Active Acetaminophen Extra Strength 500 MG Tablet Oral 10/08/2022 Active OneTouch Ultra 2 w/Device Kit 10/08/2022 Active Remicade 100 MG Solution Reconstituted Intravenous 10/08/2022 Active Levemir FlexTouch 100 UNIT/ML Solution Pen-injector Subcutaneous 10/08/2022 Active OneTouch Ultra Blue Strip In Vitro 10/08/2022 Active OneTouch Delica Plus [id number] Miscellaneous 10/08/2022 Active traZODone HCl 100 MG Tablet Oral 10/08/2022 Active traMADol HCl 50 MG Tablet Oral 10/08/2022 Active TECHLITE PEN NEEDLE 32 gauge x 5/32 NEEDLE, DISPOSABLE MISCELLANEOUS *Reorder from [facility] for eRx and Interaction Alerts* 10/08/2022 Active TAB-A-JEANETTE MULTIVITAMIN W-IRON 15 MG IRON-400 MCG TABLET *Reorder from [facility] for eRx and Interaction Alerts* 10/08/2022 Active MUCUS ER 600 mg Tablet Extended Release 12 Hour Oral *Reorder from [facility] for eRx and Interaction Alerts* 10/08/2022 Active predniSONE 10 MG Tablet Oral 10/08/2022 Active HUMIRA(CF) PEN 40 MG/0.4 ML SUBCUTANEOUS KIT *Reorder from [facility] for eRx and Interaction Alerts* 10/08/2022 Active ARIPiprazole 10 MG Tablet Oral 10/08/2022 Active Levemir FlexPen 100 unit/mL (3 mL) INSULIN PEN (ML) SUBCUTANEOUS *Reorder from [facility] for eRx and Interaction Alerts* 10/08/2022 Active Sertraline HCl 100 MG Tablet Oral 10/08/2022 Active Ketoconazole 2% Cream External 10/08/2022 Active Atorvastatin Calcium 20 MG Tablet Oral 10/08/2022 Active metFORMIN HCl 500 MG Tablet Oral 10/08/2022 Active Abilify 10 MG Tablet Oral 10/08/2022 Active Immunizations Vaccine Route Administration Date Status Comme nts Influenza virus vaccine, quadrivalent (IIV4), split virus, 0.25 mL dosage Unknown 06/06/2018 Administered Social History Social History Additional Details Category Social Info Options Details Migrated Social History Migrated Social History Alcohol Intake: None 05/20/2020,Tobacco Years: Current every day smoker 05/20/2020 Plan Of Treatment No Information Insurance Providers Payer Name Payer Address Payer Phone Subscriber Number Group Number Insured Name Patient Relationship to Insured Coverage Start Date Coverage End Date [facility] Medicare Replacement/ Advantage - Ppo [address] [address] [place] [address] [id number] JAMAR ZELAYA Self - patient is the insured [place] [address] [address] [place] [address] [id number] JAMAR ZELAYA Self - patient is the insured
--- OUTSIDE RECORDS SUMMARY | 2025-03-25 09:39 | XMS_ITS | Clinical Summary ---
Author Organization [facility] Address [address] [place] [address] Care Team Providers Care Quarrying Specialist Name Role Phone Dominic Peterson Primary Care Provider [phone] Allergies No known active allergies Medications ARIPiprazole [...] HEPATITIS C ANTIBODY Routine 07/14/2022 10:35 AM FUNDRAISING MANAGER from Last 3 Months or Most Recently Relevant to Health Maintenance Results * Hepatitis C antibody (07/14/2022 10:35 AM FUNDRAISING MANAGER) Hep C Ab Nonreactive Nonreactive [facility] [...] on 2019. Blood 07/14/2022 10:3 5 AM FUNDRAISING MANAGER 07/14/2022 1:53 PM FUNDRAISING MANAGER us Nick Llanos MD LAB MICROBIOLOGY - GENERA L ORDERABLES Edited Result - Final [facility] [address] Department [place] [address] from Last 3 Months or Most Recently Relevant to Health Maintenance Insurance MEDICARE IDPA IDPA [facility] MEDICARE ADVANTAGE [facility] MEDICARE ADVANTAGE [place] IDPA [facility] MEDICARE ADVANTAGE Advance Directives For more information, please contact: [phone] * Full Code (Latest Code Status on File) Date Activated Date Inactivated Comments 02/21/2024 11:02 AM 02/23/2024 6:13 PM Care Teams Quarrying Specialist Relationship Specialty Start Date End Date Dominic Peterson PA [address] [place] [address] PCP - General Family Practice 05/11/22
[2025-03-25 09:50] LABS: Alanine Aminotransferase 22 U/L (6-50); Albumin Level 4.4 g/dL (3.5-5.1); Alkaline Phosphatase 132 U/L (38-126); Anion Gap 9 mmol/L (4-12); Aspartate Amino Transferase 25 U/L (17-59); Bilirubin,Total 0.7 mg/dL (0.2-1.3); Blood Urea Nitrogen 13 mg/dL (9-20); Calcium 10.0 mg/dL (8.4-10.2); Carbon Dioxide 27 mmol/L (22-30); Chloride 104 mmol/L (98-107); Estimated CRCL calculation 115 ml/min; Estimated Glomerular Filt Rate > 60; Glucose 143 mg/dL (65-110); Lipase 39 U/L (23-300); Osmolality Calculated 292 mOsm/kg (285-295); Potassium 4.3 mmol/L (3.4-5.0); Sodium 140 mmol/L (137-145); Total Protein 7.6 g/dL (6.3-8.2)
[2025-03-25 10:01] LABS: NT Pro B Type Natriuretic Pept 172 pg/mL (19.9-100); Troponin I < 0.012 ng/mL (0.000-0.034)
[2025-03-25 10:11] LABS: Influenza A QL RT-PCR Negative (Negative); Influenza B QL RT-PCR Negative (Negative); RSV RNA, RT-PCR Negative (Negative); SARS-CoV-2 RNA PCR Negative (Negative)
== END 2025-03-25 11:13 | disposition home or self-care (01) ==
PROVIDERS: Emergency Provider Emergency Medicine; PCP Family Medicine
DX: J20.9 Acute bronchitis, unspecified (principal); E11.9 Type 2 diabetes mellitus without complications; E78.5 Hyperlipidemia, unspecified; Z79.899 Other long term (current) drug therapy; Z79.4 Long term (current) use of insulin; Z20.822 Contact with and (suspected) exposure to COVID-19
CPT/HCPCS: 36415; 71046; 80053; 83690; 83880; 84484; 85025; 85380; 87637; 93005; 99284; A9270

== ENCOUNTER 2025-04-08 11:18 | Outpatient (CLI) | payer MEDICARE, SELFPAY ==
[2025-04-08 11:27] LABS: Hematocrit 39.4 % (40.0-54.0); Hemoglobin 12.4 g/dL (14.0-18.0); Mean Corpuscular HGB Conc 31.5 g/dL (32-36); Mean Corpuscular Hemoglobin 26.3 pg (27.0-31.0); Mean Corpuscular Volume 83.5 fL (78.0-102.0); Platelet Count Result 194 K/mm3 (150-420); Red Blood Count 4.72 M/mm3 (4.70-6.10); White Blood Count 8.2 K/mm3 (4.8-10.8)
[2025-04-08 11:29] LABS: Add Urine Microscopic? NO; Appearance Urine Clear (Clear); Glucose Urine UA 3+ (Negative); Leukocyte Esterase Ur Negative (Negative); Nitrate Urine Negative (Negative); Specific Grav Ur 1.015 (1.010-1.020)
[2025-04-08 11:43] LABS: Hemoglobin A1C 7.1 % (<5.7)
[2025-04-08 12:08] LABS: Alanine Aminotransferase 21 U/L (6-50); Albumin Level 4.2 g/dL (3.5-5.1); Alkaline Phosphatase 106 U/L (38-126); Anion Gap 8 mmol/L (4-12); Aspartate Amino Transferase 23 U/L (17-59); Bilirubin,Total 0.4 mg/dL (0.2-1.3); Blood Urea Nitrogen 10 mg/dL (9-20); Calcium 9.7 mg/dL (8.4-10.2); Carbon Dioxide 28 mmol/L (22-30); Chloride 106 mmol/L (98-107); Estimated Glomerular Filt Rate > 60; Glucose 154 mg/dL (65-110); Osmolality Calculated 296 mOsm/kg (285-295); Potassium 4.5 mmol/L (3.4-5.0); Sodium 142 mmol/L (137-145); Total Protein 7.7 g/dL (6.3-8.2)
--- OUTSIDE RECORDS SUMMARY | 2025-04-08 12:33 | XMS_ITS | Patient Health Record ---
Author Organization [facility] Address [address] [place] [address] Care Team Providers Care Grinder Operator Automatic Name Role Phone Diya Ruiz Unavailable [phone] Reason For Referral No Information Medications Medication SIG (Take, Route, Frequency, Duration) Notes Start Date End Date Status HUMIRA(CF) PEN CROHN'S-ULC COLITIS-HID SUP STRT 80 MG/0.8 ML SUBCUT KT *Reorder from [employer] for eRx and Interaction Alerts* 10/08/2022 Active Omeprazole 40 MG Capsule Delayed Release Oral 10/08/2022 Active Triamcinolone Acetonide 0.1% Cream External 10/08/2022 Active Nystatin 703328 UNIT/GM Powder External 10/08/2022 Active OneTouch Ultra [...] In Vitro 10/08/2022 Active OneTouch Delica Plus [id number] Miscellaneous 10/08/2022 Active traZODone HCl 100 MG Tablet Oral 10/08/2022 Active traMADol HCl 50 MG Tablet Oral 10/08/2022 Active TECHLITE PEN NEEDLE 32 gauge x 5/32 NEEDLE, DISPOSABLE MISCELLANEOUS *Reorder from [employer] for eRx and Interaction Alerts* 10/08/2022 Active TAB-A-JEANETTE MULTIVITAMIN W-IRON 15 MG IRON-400 MCG TABLET *Reorder from [facility] for eRx and Interaction Alerts* 10/08/2022 Active MUCUS ER 600 mg Tablet Extended Release 12 Hour Oral *Reorder from [facility] for eRx and Interaction Alerts* 10/08/2022 Active predniSONE 10 MG Tablet Oral 10/08/2022 Active HUMIRA(CF) PEN 40 MG/0.4 ML SUBCUTANEOUS KIT *Reorder from [facility] for eRx and Interaction Alerts* 10/08/2022 Active ARIPiprazole 10 MG Tablet Oral 10/08/2022 Active Levemir FlexPen 100 unit/mL (3 mL) INSULIN PEN (ML) SUBCUTANEOUS *Reorder from [facility] for eRx and Interaction Alerts* 10/08/2022 [...] Insured Coverage Start Date Coverage End Date [facility] Medicare Replacement/ Advantage - Ppo [address] [address] [place] [address] [id number] JAMAR ZELAYA Self - patient is the insured [place] [address] [address] [place] [address] [id number] JAMAR ZELAYA Self - patient is the insured
--- OUTSIDE RECORDS SUMMARY | 2025-04-08 12:33 | XMS_ITS | Clinical Summary ---
Author Organization [facility] Address [address] [place] [address] Care Team Providers Care Pt Skilled Name Role Phone Attila Briggs MD Primary Care Provider [phone] Allergies Active Allergy Reactions Criticality Noted Date [...] recurrent, moderate 8 Chest pain 12/02/2017 Sepsis ([facility]) 12/02/2017 Resolved Problems Problem Noted Date Diagnosed Date Resolved Date Suicidal ideation 12/07/2017 12/08/2017 Encounters Date Type Department Care Team Description 03/27/2025 1:00 PM CDT - 03/27/2025 11:59 PM CDT Hospital Encounter [facility] [place] [address] Uzair Sparks MD Discharge Disposition: Home or Self Care (Routine Discharge) 03/06/2025 Orders Only [facility] [place] [address] Uzair Sparks MD from Last 3 Months Family History [...] - 19+ 3-dose series) 1995 COVID-19 Vaccine (2024-2 6 season) 2025 07/16/2021, 09/25/2020, 09/05/2020 Meningococcal B Vaccine Aged Out No l onger eligible based on patient's age to complete this topic Meningococcal Vaccine Aged Out No shannon phyllis eligible based on patient's age to complete this topic Pneumococcal Vaccine: Pediatrics (0 to 5 Years) and At-Risk Patients (6 to 49 Years) Aged Out No longer eligible b ased on patient's age to complete this topic RSV Immunizations Under 20 Months Aged Out No longer eligible b ased on patient's age to complete this topic Procedures Procedure Name Priority Date/Time Associated Diagnosis Comments EMG Routine 03/27/2025 1:09 PM CDT Numbness from Last 3 Months Results * EMG (03/27/2025 1:09 PM CDT) 03/27/2025 1:09 PM CDT Narrative ESCRIPTION - 03/27/2025 2:23 PM CDT Patient Name: CHAGO ZELAYA Date of : 1975 Account: [id number] Facility: [facility] Location: [facility] Date of Service: 03/27/2025 EMG COMPLAINT: Right lower extremity radicular pain. Patient had EMG and nerve conduction performed in right lower extremities. Results are as follows: SENSORY NERVE CONDUCTION STUDIES: Right sural: Latency of 3.5 with amplitude of 5.6, conduction velocity of 47 which is slightly low. Right superficial peroneal nerve: Latency of 4.0 with amplitude of 2.4 which is slightly low, conduction velocity of 40. MOTOR NERVE CONDUCTION STUDIES: Right common peroneal to EDB: Latency of 4.3 with amplitude of 5, conduction velocity of 41. Right tibial to adductor hallucis: Latency of 1.7 with amplitude of 5.6, conduction velocity of 59. Right tibial to ADQ pedis: Latency of 6.3 with amplitude of 2.0, conduction velocity of 41. EMG was performed on the right side. Right gastrocnemius lateral head, right gastrocnemius medial head, right tibialis anterior, right peroneus longus, right extensor hallucis longus, right quadriceps femoris, right biceps femoris. Normal insertional activity. No fibs, positive sharp waves or fasciculations seen. Motor units with normal amplitude and duration. Recruitment pattern is normal. 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 No EDX evidence for any radiculopathy in the L3-S1 nerve distribution on the right. If there is a concern for radiculopathy, further imaging at the discretion of referring physician. Signature/Date: UZAIR SPARKS #[id number] /JEET us Se Stinson MD NEUROLOGY ORDERABLES Final Re sult ESCRIPTION from Last 3 Months Insurance [facility] Advance Directives Documents on File Type Date Recorded Patient Corporate Driver Expl anation Advance Directives and Living Will 12/10/2017 12:00 AM ADVANCED DIRECTIVES * Full Code (Latest Code Status on File) Date Activated Date Inactivated Comments 12/02/2017 4:45 PM 12/10/2017 7:28 PM Care Teams Pt Skilled Relationship Specialty Start Date End Date Attila Briggs MD [address] [place] [address] PCP - General INTERNAL MEDICINE 01/02/19
[2025-04-08 12:38] LABS: Thyroid Stimulating Hormone 0.771 uIU/mL (0.465-4.680)
== END 2025-04-08 11:19 | disposition home or self-care (01) ==
LOC: CHSLAB 11:20
PROVIDERS: PCP Family Medicine; Visit Provider Family Medicine
DX: E11.65 Type 2 diabetes mellitus with hyperglycemia (principal)
CPT/HCPCS: 36415; 80053; 81003; 83036; 84443; 85027

== ENCOUNTER 2025-05-15 11:49 | Outpatient (CLI) | payer MEDICARE, SELFPAY ==
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
--- NOTE | ~2025-05-15 | US_ITS ---
EXAMINATION: US scrotum doppler, 05/15/2025 11:58 CDT HISTORY: SCROTAL PAIN Comparison: None Technique: Paredes-scale and color Doppler images were obtained of the testes with spectral analysis to document arterial and venous flow. Findings: Right Testicle:Right testicle 3 x 2.2 x 2 cm, normal parenchyma, normal flow. Right Epidiymis:Right epididymis simple cyst 1 x 1 cm, no increased flow. Left Testicle: Left testicle 2.4 x 2.4 x 2 cm, normal parenchyma, normal flow. Left Epidiymis: Unremarkable. Normal flow. Hydrocele: Small simple left hydrocele. . Varicocele: None Scrotum: Nonspecific thickening noted of the scrotal soft tissues, no abscess identified. Impression: Negative for torsion. Possible cellulitis. No abscess identified Reviewed, dictated and finalized at location P. Impression: Negative for torsion. Possible cellulitis. No abscess identified
--- OUTSIDE RECORDS SUMMARY | 2025-05-15 13:22 | XMS_ITS | Patient Health Record ---
Author Organization [facility] [place] Address [address] [place] [address] Care Team Providers Care Giver Name Role Phone Diya Ruiz Unavailable [phone] Reason For Referral No Information Medications Medication SIG (Take, Route, Frequency, Duration) Notes Start Date End Date Status HUMIRA(CF) PEN CROHN'S-ULC COLITIS-HID SUP STRT 80 MG/0.8 ML SUBCUT KT *Reorder from [employer] for eRx and Interaction Alerts* 10/08/2022 Active Omeprazole 40 MG Capsule Delayed Release Oral 10/08/2022 Active Triamcinolone Acetonide 0.1% Cream External 10/08/2022 Active Nystatin 174633 UNIT/GM Powder External 10/08/2022 Active OneTouch Ultra [...] In Vitro 10/08/2022 Active OneTouch Delica Plus [id number] Miscellaneous 10/08/2022 Active traZODone HCl 100 MG Tablet Oral 10/08/2022 Active traMADol HCl 50 MG Tablet Oral 10/08/2022 Active TECHLITE PEN NEEDLE 32 gauge x 5/32 NEEDLE, DISPOSABLE MISCELLANEOUS *Reorder from [employer] for eRx and Interaction Alerts* 10/08/2022 Active TAB-A-JEANETTE MULTIVITAMIN W-IRON 15 MG IRON-400 MCG TABLET *Reorder from [facility] for eRx and Interaction Alerts* 10/08/2022 Active MUCUS ER 600 mg Tablet Extended Release 12 Hour Oral *Reorder from [facility] for eRx and Interaction Alerts* 10/08/2022 Active predniSONE 10 MG Tablet Oral 10/08/2022 Active HUMIRA(CF) PEN 40 MG/0.4 ML SUBCUTANEOUS KIT *Reorder from [facility] for eRx and Interaction Alerts* 10/08/2022 Active ARIPiprazole 10 MG Tablet Oral 10/08/2022 Active Levemir FlexPen 100 unit/mL (3 mL) INSULIN PEN (ML) SUBCUTANEOUS *Reorder from [facility] for eRx and Interaction Alerts* 10/08/2022 [...] Insured Coverage Start Date Coverage End Date [facility] Medicare Replacement/ Advantage - Ppo [address] [address] [place] [address] [id number] JAMAR ZELAYA Self - patient is the insured Medicaid-[place] Medicaid [address] [address] [place] [address] [id number] JAMAR EZLAYA Self - patient is the insured
--- OUTSIDE RECORDS SUMMARY | 2025-05-15 13:22 | XMS_ITS | Clinical Summary ---
Author Organization [facility] Address [address] [place] [address] Care Team Providers Care Marketing Writer Name Role Phone Dominic Peterson Primary Care Provider [phone] Allergies No known active allergies Medications ARIPiprazole [...] History Medical History Date Comments Diabetes mellitus Type II DM dxd 2011 GERD (gastroesophageal [...] Well Visit/Exam 18-64 1994 Covid-19 Vaccine ( - season) 2025 07/16/2021, 09/25/2020, 09/05/2020 Influenza Vaccine (#1) 2025 3, 04/25/2022, 05/28/2021, Additional history exists Hepatitis C Screening Completed 07/14/2022, 022 Pneumococcal vaccine <65 Aged Out No longer eligible based on patient's age to complete this topic Procedures Procedure Name Priority Date/Time Associated Diagnosis Comments HEPATITIS C ANTIBODY Routine 07/14/2022 10:35 AM WRAPAROUND FACILITATOR from Last 3 Months or Most Recently Relevant to Health Maintenance Results * Hepatitis C antibody (07/14/2022 10:35 AM WRAPAROUND FACILITATOR) Hep C Ab Nonreactive Non[facility] Comment: Interpretive Data Nonreactive: [...] on 2019. Blood 07/14/2022 10:3 5 AM WRAPAROUND FACILITATOR 07/14/2022 1:53 PM WRAPAROUND FACILITATOR us Nick Llanos MD LAB MICROBIOLOGY - GENERA L ORDERABLES Edited Result - Final [facility] [address] Department [place] [address] from Last 3 Months or Most Recently Relevant to Health Maintenance Insurance MEDICARE IDPA IDPA [facility] MEDICARE [facility] Address: [address] [address] [place] [address] [facility] MEDICARE [place] ID[place] [facility] MEDICARE [facility] Address: [address] [address] [place] [address] Advance Directives For more information, please contact: [phone] * Full Code (Latest Code Status on File) Date Activated Date Inactivated Comments 02/21/2024 11:02 AM 02/23/2024 6:13 PM Care Teams Marketing Writer Relationship Specialty Start Date End Date Dominic Peterson PA [address] [place] [address] PCP - General Family Practice 05/11/22
--- OUTSIDE RECORDS SUMMARY | 2025-05-15 13:22 | XMS_ITS | Data Portability ---
[facility] [address] 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 Plan of Treatment Reminders Order Date Submit Date Provider Last Modified By Organization Details Last Modified Time Details Appointments None recorded. Lab CBC 2024 025 [email or web address] [facility], [address] [place] [address], [address], 12:31:53 CMP, serum or plasma 2024 025 [email or web address] [facility], [address] [place] [address], [address], 12:31:53 lipid panel, serum 2024 025 [email or web address] [facility], [address] [place] [address], [address], 12:31:53 hemoglobi n A1c, QN, blood 2024 025 [email or web address] [facility], [address] [place] [address], [address], 12:31:53 CBC 2024 025 MARY [facility], [address] [place] [address] [place], [address], 5 10:10:42 CMP, serum or plasma 2024 025 MARY [facility], [address], [place], [address], 5 10:10:41 lipid panel, serum 2024 025 MARY [facility], [address], [place], [address], 5 10:10:40 HbA1c (hemoglob in A1c), blood 2024 025 MARY In-Office Order, Internal Use Only DO Not Attach Compendium DO Not Attach Compendium, Do Not Delete/merge, [id number] 5 15:16:11 HbA1c (hemoglob in A1c), blood 2023 024 [email or web address] In-Office Order, Internal Use Only DO Not Attach Compendium DO Not Attach Compendium, Do Not Delete/merge, [id number] 4 15:55:03 CBC 2023 024 MARY [facility], [address], [place], [address], 4 09:21:16 CMP, serum or plasma 2023 024 MARY [facility], [address], [place], [address], 4 09:21:14 lipid panel, serum 2023 024 MARY [facility], [address], [place], [address], 4 09:21:14 HbA1c (hemoglob in A1c), blood 2023 024 MARY In-Office Order, Internal Use Only DO Not Attach Compendium DO Not Attach Compendium, Do Not Delete/merge, [id number] 4 12:17:53 HbA1c (hemoglob in A1c), blood 2023 024 [facility] In-Office Order, Internal Use Only DO Not Attach Compendium DO Not Attach Compendium, Do Not Delete/merge, [id number] 4 11:21:12 Referral urologist referral 2023 024 akin Diaz MD, [address], [place], [address], 5 11:03:52 Procedures None recorded. Surgeries None recorded. Imaging None recorded. Medication Orders tramadol 50 mg tablet 2024 025 [facility]/Pharmacy #[id number], [address] [place], [address], 5 15:50:31 tramadol 50 mg tablet 2024 025 [facility]/Pharmacy #[id number], [address] [place], [address], 5 15:02:48 atorvasta tin 20 mg tablet 2024 025 [facility]/Pharmacy #[id number], [address] [place], [address], 5 15:43:14 metformin 500 mg tablet 2024 025 [facility]/Pharmacy #[id number], [address] [place], [address], 5 15:02:34 OneTouch Ultra Test strips 2024 025 [id number], [address] [place], [address], 5 09:02:07 sertralin e 100 mg tablet 2024 025 [facility]/Pharmacy #[id number], [address] [place], [address], 5 15:44:22 trazodone 100 mg tablet 2024 025 [id number] [address] [place], [address], 5 15:02:35 Stool Softener 100 mg capsule 2024 025 [id number] [address] [place], [address], 5 15:03:02 omeprazol e 40 mg capsule,d elayed release 2024 025 [id number] [address] [place], [address], 5 15:02:37 clindamyc in HCl 300 mg capsule 2024 025 [id number] [address] [place], [address], 5 15:04:43 Lantus Solostar U-100 Insulin 100 unit/mL (3 mL) subcutane ous pen 2024 025 [id number] [address] [place], [address], 5 16:23:37 tramadol 50 mg tablet 2023 024 [facility], [address], [place], [address], 4 15:15:52 nicotine 7 mg/24 hr daily transderm al patch 2023 024 kspragga [facility], [email or web address], [address], [place], [address], 5 14:39:31 Stool Softener 100 mg capsule 2023 024 [facility], [address], [place], [address], 11:22:19 Patient TargetsNo targets recorded. Patient Instructions Encounter Date Encounter Id Patient Instructions Last Modified By Organization Details Last Modified Time 07/26/2023 [id number] deciding about using medicines to quit smoking jnanney Not available 07/26/2023 11:21:10 Quitting Tobacco : Care Instructions jnanney Not available 07/26/2023 11:21:10 constipation: care instructions jnanney Not available 07/26/2023 11:21:10 A healthy lifestyle: care instructions jnanney Not available 07/26/2023 11:21:10 type 2 diabetes: care instructions jnanney Not available 07/26/2023 11:21:10 09/27/2023 [id number] A healthy lifestyle: care instructions jnanney Not available 09/27/2023 11:17:40 learning about type 2 diabetes jnanney Not available 09/27/2023 11:17:40 type 2 diabetes: care instructions jnanney Not available 09/27/2023 11:17:40 04/26/2024 [id number] A healthy lifestyle: care instructions jnanney Not available 04/26/2024 15:16:19 learning about type 2 diabetes jnanney Not available 04/26/2024 15:55:03 type 2 diabetes: care instructions jnanney Not available 04/26/2024 15:55:03 08/09/2024 [id number] A healthy lifestyle: care instructions jnanney Not available 08/09/2024 15:02:23 learning about high blood pressure jnanney Not available 08/09/2024 15:02:23 10/18/2024 [id number] A healthy lifestyle: care instructions jnanney Not [...] DO Not Attach Compendium, Do Not Delete/merge, [id number] 07/26/2023 09:23:11 09/27/19 24 09/28/2023 LIPID PANEL cholesterol, total 127 mg/dL 100-19 9 Not Available [address], [address], 09/28/2023 09:21:14 09/27/1909/28/2023 LIPID PANEL triglyceride s 135 mg/dL 0-149 Not Available [address], [address], 09/28/2023 09:21:14 09/27/1909/28/2023 LIPID PANEL HDL cholesterol 36 mg/dL >39 below low normal Not Available [address], [address], 09/28/2023 09:21:14 09/27/1909/28/2023 LIPID PANEL VLDL cholesterol quita 24 mg/dL 5-40 Not Available [address], [address], 09/28/2023 09:21:14 09/27/1909/28/2023 LIPID PANEL LDL chol calc ([facility]) 67 mg/dL 0-99 Not Available [address], [address], 09/28/2023 09:21:14 09/27/1909/28/2023 COMP. METAB OLIC PANEL (14) glucose 88 mg/dL 70-99 Not Available [address], [address], 09/28/2023 09:21:14 09/27/1909/28/2023 COMP. METAB OLIC PANEL (14) BUN 10 mg/dL 6-24 Not Available [address], [address], 09/28/2023 09:21:14 09/27/19 24 09/28/2023 COMP. METAB OLIC PANEL (14) creatinine 0.69 mg/dL 0.76-1 .27 below low normal Not Available [address], [address], 09/28/2023 09:21:14 09/27/19 24 09/28/2023 COMP. METAB OLIC PANEL (14) eGFR 115 mL/mi n/1.7 3 >59 Not Available [address], [address], 09/28/2023 09:21:14 09/27/19 24 09/28/2023 COMP. METAB OLIC PANEL (14) BUN/creatini ne ratio 14 9-20 Not Available [address], [address], 09/28/2023 09:21:14 09/27/19 24 09/28/2023 COMP. METAB OLIC PANEL (14) sodium 140 mmol/ L 134-14 4 Not Available [address], [address], 09/28/2023 09:21:14 09/27/19 24 09/28/2023 COMP. METAB OLIC PANEL (14) potassium 4.4 mmol/ L 3.5-5. 2 Not Available [address], [address], 09/28/2023 09:21:14 09/27/19 24 09/28/2023 COMP. METAB OLIC PANEL (14) chloride 100 mmol/ L 96-106 Not Available [address] [place], [address], 09/28/2023 09:21:14 09/27/19 24 09/28/2023 COMP. METAB OLIC PANEL (14) carbon dioxide, total 26 mmol/ L 20 Not Available [address], [address], 09/28/2023 09:21:14 09/27/19 24 09/28/2023 COMP. METAB OLIC PANEL (14) calcium 9.3 mg/dL 8.7-10 .2 Not Available [address], [address], 09/28/2023 09:21:14 09/27/19 24 09/28/2023 COMP. METAB OLIC PANEL (14) protein, total 7.5 g/dL 6.0-8. 5 Not Available [address], [address], 09/28/2023 09:21:14 09/27/19 24 09/28/2023 COMP. METAB OLIC PANEL (14) albumin 4.4 g/dL 4.1-5. 1 Not Available [address], [address], 09/28/2023 09:21:14 09/27/19 24 09/28/2023 COMP. METAB OLIC PANEL (14) globulin, total 3.1 g/dL 1.5-4. 5 Not Available [address], [address], 09/28/2023 09:21:14 09/27/19 24 09/28/2023 COMP. METAB OLIC PANEL (14) A/G ratio 1.4 1.2-2. 2 Not Available [address], [address], 09/28/2023 09:21:14 09/27/19 24 09/28/2023 COMP. METAB OLIC PANEL (14) bilirubin, total 0.3 mg/dL 0.0-1. 2 Not Available [address], [address], 09/28/2023 09:21:14 09/27/19 24 09/28/2023 COMP. METAB OLIC PANEL (14) alkaline phosphatase 208 IU/L 44-121 above high normal Not Available [address], [address], 09/28/2023 09:21:14 09/27/19 24 09/28/2023 COMP. METAB OLIC PANEL (14) AST (SGOT) 18 IU/L 0-40 Not Available [address], [address], 09/28/2023 09:21:14 09/27/19 24 09/28/2023 COMP. METAB OLIC PANEL (14) ALT (SGPT) 30 IU/L 0-44 Not Available [address], [address], 09/28/2023 09:21:14 09/27/19 24 09/28/2023 CARDI OVASC ULAR REPOR T interpretati on Note Suppl morena al repor t is avail able. Not Available [address], [address], 09/28/2023 09:21:15 09/27/19 24 09/28/2023 CARDI OVASC ULAR REPOR T pdf . Not Available [address], [address], 09/28/2023 09:21:15 09/27/19 24 09/28/2023 CBC, PLATE LET, NO DIFFE RENTI AL WBC 6.0 x10e3 /uL 3.4-10 .8 Not Available [facility] & [address], [address], 09/28/2023 09:21:16 09/27/19 24 09/28/2023 CBC, PLATE LET, NO DIFFE RENTI AL RBC 5.09 x10e6 /uL 4.14-5 .80 Not Available [address], [address], 09/28/2023 09:21:16 09/27/19 24 09/28/2023 CBC, PLATE LET, NO DIFFE RENTI AL hemoglobin 14.2 g/dL 13.0-1 7.7 Not Available [address], [address], 09/28/2023 09:21:16 09/27/1909/28/2023 CBC, PLATE LET, NO DIFFE RENTI AL hematocrit 43.5 % 37.5-5 1.0 Not Available [address], [address], 09/28/2023 09:21:16 09/27/1909/28/2023 CBC, PLATE LET, NO DIFFE RENTI AL MCV 86 fL 79-97 Not Available [address], [address], 09/28/2023 09:21:16 09/27/1909/28/2023 CBC, PLATE LET, NO DIFFE RENTI AL MCH 27.9 pg 26.6-3 3.0 Not Available [address], [address], 09/28/2023 09:21:16 09/27/1909/28/2023 CBC, PLATE LET, NO DIFFE RENTI AL MCHC 32.6 g/dL 31.5-3 5.7 Not Available [facility] [address], [address], 09/28/2023 09:21:16 09/27/19 24 09/28/2023 CBC, PLATE LET, NO DIFFE RENTI AL RDW 14.2 % 11.6-1 5.4 Not Available [address], [address], 09/28/2023 09:21:16 09/27/19 24 09/28/2023 CBC, PLATE LET, NO DIFFE RENTI AL platelets 210 x10e3 /uL 150-45 0 Not Available [address], [address], 09/28/2023 09:21:16 09/27/19 24 09/27/2023 HbA1c (hemo globi n A1c), blood HbA1c 5.4 Not Available In-Office Order Internal Use Only DO Not Attach Compendium DO Not Attach Compendium, Do Not Delete/merge, [id number] 09/27/2023 11:17:21 04/26/20 24 04/26/2024 HbA1c (hemo globi n A1c), blood HbA1c 6.4 Not Available In-Office Order Internal Use Only DO Not Attach Compendium DO Not Attach Compendium, Do Not Delete/merge, [id number] 04/26/2024 09:02:00 08/09/1908/11/2024 LIPID PANEL cholesterol, total 155 mg/dL 100-19 9 Not Available [address], [address], 08/11/2024 10:10:40 08/09/19 25 08/11/2024 LIPID PANEL triglyceride s 307 mg/dL 0-149 above high normal Not Available [address], [address], 08/11/2024 10:10:40 08/09/19 25 08/11/2024 LIPID PANEL HDL cholesterol 40 mg/dL >39 Not Available [address], [address], 08/11/2024 10:10:40 08/09/1908/11/2024 LIPID PANEL VLDL cholesterol quita 49 mg/dL 5-40 above high normal Not Available [address], [address], 08/11/2024 10:10:40 08/09/19 25 08/11/2024 LIPID PANEL LDL chol calc ([facility]) 66 mg/dL 0-99 Not Available [address], [address], 08/11/2024 10:10:40 08/09/19 25 08/11/2024 COMP. METAB OLIC PANEL (14) glucose 107 mg/dL 70-99 above high normal Not Available [address], [address], 08/11/2024 10:10:41 08/09/19 25 08/11/2024 COMP. METAB OLIC PANEL (14) BUN 16 mg/dL 6-24 Not Available [address], [address], 08/11/2024 10:10:41 08/09/19 25 08/11/2024 COMP. METAB OLIC PANEL (14) creatinine 0.70 mg/dL 0.76-1 .27 below low normal Not Available [address], [address], 08/11/2024 10:10:41 08/09/19 25 08/11/2024 COMP. METAB OLIC PANEL (14) eGFR 114 mL/mi n/1.7 3 >59 Not Available [address], [address], 08/11/2024 10:10:41 08/09/19 25 08/11/2024 COMP. METAB OLIC PANEL (14) BUN/creatini ne ratio 23 9-20 above high normal Not Available [address], [address], 08/11/2024 10:10:41 08/09/19 25 08/11/2024 COMP. METAB OLIC PANEL (14) sodium 137 mmol/ L 134-14 4 Not Available [address], [address], 08/11/2024 10:10:41 08/09/19 25 08/11/2024 COMP. METAB OLIC PANEL (14) potassium 4.7 mmol/ L 3.5-5. 2 Not Available [address], [address], 08/11/2024 10:10:41 08/09/19 25 08/11/2024 COMP. METAB OLIC PANEL (14) chloride 96 mmol/ L 96-106 Not Available [address], [address], 08/11/2024 10:10:41 08/09/19 25 08/11/2024 COMP. METAB OLIC PANEL (14) carbon dioxide, total 29 mmol/ L 20-29 Not Available [address], [address], 08/11/2024 10:10:41 08/09/19 25 08/11/2024 COMP. METAB OLIC PANEL (14) calcium 11.2 mg/dL 8.7-10 .2 above high normal Not Available [address], [address], 08/11/2024 10:10:41 08/09/19 25 08/11/2024 COMP. METAB OLIC PANEL (14) protein, total 7.4 g/dL 6.0-8. 5 Not Available [facility] [address], [address], 08/11/2024 10:10:41 08/09/19 25 08/11/2024 COMP. METAB OLIC PANEL (14) albumin 4.3 g/dL 4.1-5. 1 Not Available [address], [address], 08/11/2024 10:10:41 08/09/19 25 08/11/2024 COMP. METAB OLIC PANEL (14) globulin, total 3.1 g/dL 1.5-4. 5 Not Available [address], [address], 08/11/2024 10:10:41 08/09/19 25 08/11/2024 COMP. METAB OLIC PANEL (14) bilirubin, total <0.2 mg/dL 0.0-1. 2 Not Available [address], [address], 08/11/2024 10:10:41 08/09/19 25 08/11/2024 COMP. METAB OLIC PANEL (14) alkaline phosphatase 183 IU/L 44-121 above high normal Not Available [address], [address], 08/11/2024 10:10:41 08/09/19 25 08/11/2024 COMP. METAB OLIC PANEL (14) AST (SGOT) 27 IU/L 0-40 Not Available [address], [address], 08/11/2024 10:10:41 08/09/19 25 08/11/2024 COMP. METAB OLIC PANEL (14) ALT (SGPT) 28 IU/L 0-44 Not Available [address], [address], 08/11/2024 10:10:41 08/09/1908/11/2024 CARDI OVASC ULAR REPOR T interpretati on Note Suppl morena don t is avail able. Not Available [address], [address], 08/11/2024 10:10:42 08/09/1908/11/2024 CARDI OVASC ULAR REPOR T pdf . Not Available [facility] & [address], [address], 08/11/2024 10:10:42 08/09/1908/11/2024 CBC, PLATE LET, NO DIFFE RENTI AL WBC 12.5 x10e3 /uL 3.4-10 .8 above high normal Not Available [address], [address], 08/11/2024 10:10:42 08/09/1908/11/2024 CBC, PLATE LET, NO DIFFE RENTI AL RBC 4.84 x10e6 /uL 4.14-5 .80 Not Available [address], [address], 08/11/2024 10:10:42 08/09/1908/11/2024 CBC, PLATE LET, NO DIFFE RENTI AL hemoglobin 12.9 g/dL 13.0-1 7.7 below low normal Not Available [address], [address], 08/11/2024 10:10:42 08/09/1908/11/2024 CBC, PLATE LET, NO DIFFE RENTI AL hematocrit 40.9 % 37.5-5 1.0 Not Available [address], [address], 08/11/2024 10:10:42 08/09/1908/11/2024 CBC, PLATE LET, NO DIFFE RENTI AL MCV 85 fL 79-97 Not Available [address], [address], 08/11/2024 10:10:42 08/09/1908/11/2024 CBC, PLATE LET, NO DIFFE RENTI AL MCH 26.7 pg 26.6-3 3.0 Not Available [address], [address], 08/11/2024 10:10:42 08/09/1908/11/2024 CBC, PLATE LET, NO DIFFE RENTI AL MCHC 31.5 g/dL 31.5-3 5.7 Not Available [address], [address], 08/11/2024 10:10:42 08/09/1908/11/2024 CBC, PLATE LET, NO DIFFE RENTI AL RDW 15.5 % 11.6-1 5.4 above high normal Not Available [address], [address], 08/11/2024 10:10:42 08/09/19 25 08/11/2024 CBC, PLATE LET, NO DIFFE RENTI AL platelets 267 x10e3 /uL 150-45 0 Not Available [address], [address], 08/11/2024 10:10:42 08/09/1908/09/2024 HbA1c (hemo globi n A1c), blood HbA1c 6.2 Not Available In-Office Order Internal Use Only DO Not Attach Compendium DO Not Attach Compendium, Do Not Delete/merge, [id number] 08/09/2024 15:00:07 Result Notes None recorded. Problems [...] unit/mL (3 mL) subcutaneou s pen INJECT 40 UNITS SUBCUTANE OUSLY AT BEDTIME *NEEDS APPT BEFORE NEXT REFILL 2024 active Not Available Not Available Not [...] Available TechLITE Pen Needle 32 gauge x 32 USE DIRECTED. NEEDS APPT BEFORE ANY MORE REFILLS active Not Available Not Available No t Available Accu-Chek Guide Glucose Meter 1 use as directed, strips testing twice a day #100, lancets testing twice a day #100 2024 active Not Available Not Available Not Avai lable OneTouch Ultra Blue Test Strip USE ONE TEST STRIP TWICE A DAY FOR 90 DAYS (DX E11.9) active Not Available Not Available No t Available Humira(CF) Pen 40 mg/0.4 mL subcutaneou s kit 07/26 completed Not Available Not Available Not Available Humira(CF) Pen Crohn's-Ulc Colitis-Hid Sup Strt 80 mg/0.8 mL subcut kt 01/05 completed Not Available Not Available Not Available OneTouch Delica Plus Lancet 33 gauge [...] Updated DateTime 4 180.34 cm 30.7 kg/m2 24620.4 2 g 78 /min 96 % 96 % 126/74 mm[Hg] Yina Lorenzana [place] [facility] 4 11:04:36 Date Recorded Body height Body mass index (BMI) Body weight Oxygen saturation Oxygen saturation in Arterial blood by Pulse oximetry Heart rate Respiratory rate Systolic And Diastolic Provider Name and Address Organization Details Last Updated DateTime 5 180.34 cm 30.2 kg/m2 82804.3 9 g 98 % 98 % 78 /min 16 /min 118/76 mm[Hg] Theresa Pandey [place] [facility] 5 14:42:34 Date Recorded Body height Body mass index (BMI) Body weight Heart rate Oxygen saturation Oxygen saturation in Arterial blood by Pulse oximetry Systolic And Diastolic Provider Name and Address Organization Details Last Updated DateTime 4 180.34 cm 28.3 kg/m2 66811.2 5 g 79 /min 97 % 97 % 116/77 mm[Hg] Yina Lorenzana MA [facility] 4 10:50:53 Date Recorded Body height Body mass index (BMI) Body weight Respiratory rate Oxygen saturation Oxygen saturation in Arterial blood by Pulse oximetry Heart rate Systolic And Diastolic Provider Name and Address Organization Details Last Updated DateTime 5 180.34 cm 31.1 kg/m2 762619. 1 g 16 /min 96 % 96 % 88 /min 117/72 mm[Hg] Theresa Pandey MA [facility] 5 15:06:45 Date Recorded Body height Body mass index (BMI) Body weight Oxygen saturation Oxygen saturation in Arterial blood by Pulse oximetry Heart rate Systolic And Diastolic Provider Name and Address Organization Details Last Updated DateTime 4 180.34 cm 28.6 kg/m2 26645.5 4 g 95 % 95 % 102 /min 115/78 mm[Hg] Yina Lorenzana MA [facility] 4 15:01:26 Social History Question Answer Notes LastModified by Organizat ion Details LastModified Time Tobacco Smoking Status Current Every Day Smoker Ramya Bourgeois MA [facility], [facility] 03/16/2019 16:01:26 Are You Blind Or [...] anxious, or unable to sleep at night)? [id number] Information not available 01/09/2021 Family History Relationship Description Onset Age of this Age Resolved Age Notes LastModified by Organization Details LastModified Time Mother Kidney disease [email or web address] Not available 02/17 16:01:12 Medical History Condition Response Coronary Artery Disease N Other N High Blood Pressure N Atrial Fibrillation N Thyroid Problems N Kidney or Bladder Problems N GI Problems Y Depression Y COPD N Blood Clots N Skin Problems Y Eating Disorder N Anemia N Heart Attack ([place]) N Anxiety Disorder N Diabetes Y Muscle, [...] influenza, unspecified formulation 9 completed Not Available [facility] 07/04/2023 20:40:43 COVID-19, mRNA, LNP-S, PF, 30 mcg/0.3 mL dose 1 completed Not Available [facility] 07/04/2023 20:40:43 COVID-19, mRNA, LNP-S, PF, 30 mcg/0.3 mL dose 1 completed Not Available [facility] 07/04/2023 20:40:43 Influenza, split virus, quadrivalent, preservative 0 completed Lizabeth Nieves MA null, [place] - [facility] 06/04/2020 15:52:32 Past Encounters Encounter ID Performer Location Encounter Start Date Encounter Closed Date Diagnosis/Indication Diagnosis SNOMED-CT Code Diagnosis ICD10 Code Diagnosis IMO Codes Diagnosis Note [id number] [facility] [address] [place] [address] 03/16/2019 15:52:58 03/16/2019 16:29:51 Type 2 diabetes mellitus 17592422 E11.9 Hidradenit is suppurativa 72690816 L73.2 [id number] Nayana Peterson PA-C [facility] [address] [place] [address] 01/04/2020 10:45:28 01/07/2020 07:49:31 Type 2 diabetes mellitus 98697310 E11.9 [id number] Nayana Peterson PA-C [facility] [address] [place] [address] 04/01/2020 13:56:14 04/02/2020 11:45:35 Type 2 diabetes mellitus 16902905 E11.9 Cellulitis of left lower limb 5307442991 5084181 L03.867 [id number] Se Ram MD [facility] [address] [place] [address] 06/04/2020 15:21:14 06/04/2020 15:52:39 Type 2 diabetes mellitus without complication 013745285 E11.9 Type 2 kay betes mellitus 18490929 E11.9 Administra tion of influenza vaccine 75725196 Z23 [id number] Se Ram MD [facility] [address] [place] [address] 01/09/2021 10:24:15 01/12/2021 13:38:26 Hidradenitis suppurativa 83443688 L73.2 [id number] Nayana Peterson PA-C [facility] [address] [place] [address] 12/01/2021 15:04:09 12/01/2021 15:52:08 Type 2 diabetes mellitus 52566491 E11.9 Hidradenit is suppurativa 39049576 L73.2 Primary insomnia 9329274 F51.01 [id number] Se Ram MD [facility] [address] [place] [address] 01/05/2022 11:50:21 01/05/2022 12:28:46 Type 2 diabetes mellitus 10992466 E11.9 [id number] Nayana Peterson PA-C [facility] [address] [place] [address] 10/12/2022 14:24:10 10/13/2022 12:46:20 Type 2 diabetes mellitus 16518984 E11.9 Mixed hyperlipidemia 267 271439 E78.2 Seasonal a llergic rhinitis 115601373 J30.2 Overweight 883311479 E66 .3 [id number] Nayana Peterson PA-C [facility] [address] [place] [address] 07/26/2023 10:54:15 07/27/2023 09:55:19 Type 2 diabetes mellitus without complication 212239664 E11.9 Constipation 75472264 K5 9.09 Tobacco de pendence syndrome 24477311 F17.200 Overweight 892135311 E66 .3 [id number] Nayana Peterson PA-C [facility] [address] [place] [address] 09/27/2023 10:46:09 10/01/2023 12:06:56 Adult health examination 715704716 Z00.00 Type 2 kay betes mellitus 50560465 E11.9 Hidradenit is suppurativa 09909440 L73.2 Overweight 795802702 E66 .3 [id number] Nayana Peterson PA-C [facility] [address] [place] [address] 04/26/2024 14:45:21 05/03/2024 10:52:28 Type 2 diabetes mellitus 09620268 E11.9 Hidradenit is suppurativa 86327943 L73.2 Swelling of testicle 438 626312 N50.89 Overweight 531326010 E66 .3 [id number] Se Ram MD [facility] [address] [place] [address] 08/09/2024 14:24:27 08/13/2024 13:10:41 Type 2 diabetes mellitus 62370688 E11.9 Cellulitis of left lower limb 7193926267 9722361 L03.116 Constipation 62031251 K5 9.09 Type 2 kay betes mellitus without complication 435464645 E11.9 Hidradenit is suppurativa 21159974 L73.2 Mixed anxi ety and depressive disorder 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 Gastroesop hageal reflux disease without esophagitis 879428348 K21.9 Essential hypertension 73139573 I10 Overweight 092903915 E66 .3 [id number] Se Ram MD [facility] [address] [place] [address] 10/18/2024 14:55:59 10/19/2024 11:04:05 Hidradenitis suppurativa 98121230 L73.2 cont prn..re evaluate after surgery Long-term drug therapy 297103019 Z79.891 Type 2 kay betes mellitus without complication [id number] E11.9 cont current diabetic regimen Overweight [id number] E66 .3 Health Concerns Section Related Observation LastModified by Organization Detai ls LastModified Time None Recorded Concern Status LastModified by Organization Details LastModified Time None Recorded Advance Directives Directive None Recorded Payers Insurance Date Sequence Insurance Name Policy Number Policy Barnes Covered Member ID Barnes Member ID Guarantor Name 05/15/2025 1 [facility] (MEDICARE REPLACEMENT/AD VANTAGE - PPO) [id number] [place] [id number] [place] 05/11/2025 2 [place] WHEN MEDICARE OR MEDICARE REPLACEMENT PRIMARY) [place] [id number] [place] 08/09/2024 1 [place] [id number] [place] 08/09/2024 [place] [id number] [facility] [place] - [facility] [place] [id number] [place] Notes Date Note Type Note Provider Name and Address Organization Details Recorded Time 07/26/2023 text/html ROS as noted in the HPI has developed constipation for a month...sporadic large and very hard...no stool softener...also wants nicotine patch Nayana Peterson PA-C Attn: Accounting,[address], [place], [address], [facility] 07/26/2023 11:24:37 09/27/2023 text/html ROS as noted in the HPI recheck on diabetes..started cosentyx...needs labs...cosentyx has made his BS elevated Nayana Peterson PA-C Attn: Accounting,[address], [place], [address], [facility] 09/27/2023 11:18:35 04/26/2024 text/html ROS as noted in the HPI abscess on rt testicle..infectio n went to testicle..needs urology he was told Nayana Peterson PA-C Attn: Accounting,[address], [place], [address], [facility] 04/26/2024 15:16:30 08/09/2024 text/html ROS as noted in the HPI heart is beating irreg...fast then slow...getting heartburn now...denies N/V..denies chest pain or jaw pain..hx of diabetes htn..no family cardiac hx Lizabeth Nieves MA [facility], [facility] 08/09/2024 15:16:48 10/18/2024 text/html ROS as noted in the HPI hx of hydranitis supprativa..has one last surgery..uses tramadol vs pain for this..moved out of [facility] and living independant..hx of diabetes uses lantus and metformin Nayana Peterson PA-C Attn: Accounting,[address], [place], [address], [facility] 10/18/2024 15:51:51
== END 2025-05-15 11:50 | disposition home or self-care (01) ==
PROVIDERS: PCP Family Medicine; Visit Provider Family Medicine
DX: N50.82 Scrotal pain (principal); R93.819 Abnormal radiologic findings on diagnostic imaging of unspecified testicle
CPT/HCPCS: 76870; 93976

== ENCOUNTER 2025-05-30 14:39 | Outpatient (CLI) | payer MEDICARE, MEDICAID, SELFPAY ==
--- NOTE | ~2025-05-30 | MR_ITS ---
EXAMINATION: MR lumbar spine wo con DATE: 05/30/2025 16:24 INDICATION: Lumbosacral radiculopathy TECHNIQUE: Magnetic resonance imaging (MRI) of the lumbar spine was performed without intravenous contrast. Sequences included sagittal T2-weighted FSE, sagittal T2-weighted FS FSE, sagittal T1-weighted FSE, and axial T2-weighted FSE. COMPARISON: None FINDINGS: 3 mm retrolisthesis L5 on S1. 2 mm retrolisthesis L4 on L5. Minimal likely physiologic anterior wedging at L1. Remaining vertebral body heights are normal. Normal marrow signal. Mild disc desiccation and mild disc height loss at L4-L5. The conus medullaris terminates at L1-L2. There is normal signal in the caudal spinal cord. Paravertebral soft tissues are unremarkable. The following disc levels are specifically discussed: T12-L1: The disc does not extend beyond the endplate margin. There is mild right facet joint osteoarthritis. There is no neural foraminal stenosis. There is no central canal stenosis. L1-L2: Disc is minimally bulging. There is mild bilateral facet joint osteoarthritis. There is no neural foraminal stenosis. There is no central canal stenosis. L2-L3: Disc is minimally bulging. There is mild bilateral facet joint osteoarthritis. There is no neural foraminal stenosis. There is no central canal stenosis. L3-L4: Disc is mildly bulging. There is mild bilateral facet joint osteoarthritis. There is mild bilateral neural foraminal stenosis. There is no central canal stenosis. L4-L5: Disc is bulging. There is mild right and minimal left facet joint osteoarthritis. There is moderate bilateral neural foraminal stenosis. There is mild central canal stenosis. L5-S1: Disc is mildly bulging. There is mild bilateral facet joint osteoarthritis. There is mild bilateral neural foraminal stenosis. There is no central canal stenosis. IMPRESSION: 1. Mild lumbar spondylosis. Reviewed, dictated and finalized at location A. 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 Mild lumbar spondylosis.
--- OUTSIDE RECORDS SUMMARY | 2025-05-30 14:56 | XMS_ITS | Clinical Summary ---
Author Organization [facility] Address [address] [place] [address] Care Team Providers Care C Developer Name Role Phone Dominic Peterson Primary Care Provider [phone] Allergies No known active allergies Medications ARIPiprazole [...] HEPATITIS C ANTIBODY Routine 07/14/2022 10:35 AM COMPOUNDER HELPER from Last 3 Months or Most Recently Relevant to Health Maintenance Results * Hepatitis C antibody (07/14/2022 10:35 AM COMPOUNDER HELPER) Hep C Ab Nonreactive Nonreactive [facility] Comment: Interpretive Data Nonreactive: Antibodies to [...] on 2019. Blood 07/14/2022 10:3 5 AM COMPOUNDER HELPER 07/14/2022 1:53 PM COMPOUNDER HELPER us Nick Llanos MD LAB MICROBIOLOGY - GENERA L ORDERABLES Edited Result - Final [facility] [address] Department [place] [address] from Last 3 Months or Most Recently Relevant to Health Maintenance Insurance MEDICARE IDPA IDPA [facility] MEDICARE [facility] Address: [address] [address] [place] [address] [facility] MEDICARE [place] IDPA [facility] MEDICARE [facility] Address: [address] [address] [place] [address] Advance Directives For more information, please contact: [phone] * Full Code (Latest Code Status on File) Date Activated Date Inactivated Comments 02/21/2024 11:02 AM 02/23/2024 6:13 PM Care Teams C Developer Relationship Specialty Start Date End Date Dominic Peterson PA [address] [place] [address] PCP - General Family Practice 05/11/22
--- OUTSIDE RECORDS SUMMARY | 2025-05-30 14:56 | XMS_ITS | Clinical Summary ---
Author Organization [facility] Address [address] [place] [address] Care Team Providers Care Hide Inspector And Sorter Name Role Phone Attila Briggs MD Primary Care Provider [phone] Allergies Active Allergy Reactions Criticality Noted Date [...] moderate 8 Chest pain 12/02/2017 Sepsis 12/02/2017 Resolved Problems Problem Noted Date Diagnosed Date Resolved Date Suicidal ideation 12/07/2017 12/08/2017 Encounters Date Type Department Care Team Description 03/27/2025 1:00 PM CDT - 03/27/2025 11:59 PM T Hospital Encounter [facility] [place] [address] [place] [address] Uzair Sparks MD Discharge Disposition: Home or Self Care (Routine Discharge) 03/06/2025 Orders Only [facility] [place] [address] [place] [address] Uzair Sparks MD from Last 3 Months [...] C 1994 DTaP, Tdap and Td Vaccines (1 - Tdap) 1995 Hepatitis B Vaccines (1 of 3 - 19+ 3-dose series) 1995 COVID-19 Vaccine ( - 2024- season) 2025 07/16/2021, 09/25/2020, 09/05/2020 Influenza Adult (#1) 2025 05/23/2024, 05/25/2023, 04/25/2022, Additional history exists Hepatitis A Vaccines Aged Out No long er eligible based on patient's age to complete this topic Meningococcal B Vaccine Aged Out No l onger eligible based on patient's age to complete this topic Meningococcal Vaccine Aged Out No shannon phyllis eligible based on patient's age to complete this topic Pneumococcal Vaccine: Pediatrics (0 to 5 Years) and At-Risk Patients (6 to 49 Years) Aged Out No longer eligible based on [...] CHAGO ZELAYA Date of : 1975 Account: [id number] Facility: [facility] Location: [facility] Date of Service: 03/27/2025 EMG COMPLAINT: [...] discretion of referring physician. 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
--- OUTSIDE RECORDS SUMMARY | 2025-05-30 14:56 | XMS_ITS | Patient Health Record ---
Author Organization [facility] [email or web address] Address [address] [place] [address] Care Team Providers Care [email or web address] Architect Name Role Phone Diya Ruiz Unavailable [phone] Reason For Referral No Information Medications Medication SIG (Take, Route, Frequency, Duration) Notes Start Date End Date Status HUMIRA(CF) PEN CROHN'S-ULC COLITIS-HID SUP STRT 80 MG/0.8 ML SUBCUT KT *Reorder from [employer] for eRx and Interaction Alerts* 10/08/2022 Active Omeprazole 40 MG Capsule Delayed Release Oral 10/08/2022 Active Triamcinolone Acetonide 0.1% Cream External 10/08/2022 Active Nystatin 708737 UNIT/GM Powder External 10/08/2022 Active OneTouch Ultra [...] In Vitro 10/08/2022 Active OneTouch Delica Plus [id number] Miscellaneous 10/08/2022 Active traZODone HCl 100 MG Tablet Oral 10/08/2022 Active traMADol HCl 50 MG Tablet Oral 10/08/2022 Active TECHLITE PEN NEEDLE 32 gauge x 5/32 NEEDLE, DISPOSABLE MISCELLANEOUS *Reorder from [employer] for eRx and Interaction Alerts* 10/08/2022 Active TAB-A-JEANETTE MULTIVITAMIN W-IRON 15 MG IRON-400 MCG TABLET *Reorder from [facility] for eRx and Interaction Alerts* 10/08/2022 Active MUCUS ER 600 mg Tablet Extended Release 12 Hour Oral *Reorder from [facility] for eRx and Interaction Alerts* 10/08/2022 Active predniSONE 10 MG Tablet Oral 10/08/2022 Active HUMIRA(CF) PEN 40 MG/0.4 ML SUBCUTANEOUS KIT *Reorder from [facility] for eRx and Interaction Alerts* 10/08/2022 Active ARIPiprazole 10 MG Tablet Oral 10/08/2022 Active Levemir FlexPen 100 unit/mL (3 mL) INSULIN PEN (ML) SUBCUTANEOUS *Reorder from [facility] for eRx and Interaction Alerts* 10/08/2022 [...] Coverage Start Date Coverage End Date [facility] Medicare Replacement/ Advantage - Ppo [address] [address] [place] [address] [id number] JAMAR ZELAYA Self - patient is the insured [place] Medicaid [address] [address] [place] [address] [id number] JAMAR ZELAYA Self - patient is the insured
--- OUTSIDE RECORDS SUMMARY | 2025-05-30 14:57 | XMS_ITS | Data Portability ---
Author Organization [facility] Address [address] [place] [address] Care Team Providers Care Flag Signalman Name Role Phone NAYANA PETERSON Primary Care Provider [phone] Assessment No assessment recorded. Plan of Treatment Reminders Order Date Submit Date Provider Last Modified By Organization Details Last Modified Time Details Appointments None recorded. Lab CBC 2024 025 [email or web address] [facility], [address] [place] [address], [address], 12:31:53 CMP, serum or plasma 2024 025 [email or web address] [facility], [address] [place] [address], [address], 12:31:53 lipid panel, serum 2024 025 [email or web address] [facility], [address] [place] [address], [address], 12:31:53 hemoglobi n A1c, QN, blood 2024 025 [email or web address] [facility], [address] [place] [address], [address], 5 12:31:53 CBC 2024 025 MARY [facility], [address] [place] [address] [place], [address], 5 10:10:42 CMP, serum or plasma 2024 025 MARY [facility], [address], [place], [address], 5 10:10:41 lipid panel, serum 2024 025 MARY [facility], [address], [place], [address], 5 10:10:40 HbA1c (hemoglob in A1c), blood 2024 025 MARY In-Office Order, Internal Use Only DO Not Attach Compendium DO Not Attach Compendium, Do Not Delete/merge, [id number] 5 15:16:11 HbA1c (hemoglob in A1c), blood 2023 024 [email or web address] In-Office Order, Internal Use Only DO Not Attach Compendium DO Not Attach Compendium, Do Not Delete/merge, [id number] 4 15:55:03 CBC 2023 024 MARY [facility], [address], [place], [address], 4 09:21:16 CMP, serum or plasma 2023 024 MARY [facility], [address], [place], [address], 4 09:21:14 lipid panel, serum 2023 024 MARY [facility], [address], [place], [address], 4 09:21:14 HbA1c (hemoglob in A1c), blood 2023 024 MARY In-Office Order, Internal Use Only DO Not Attach Compendium DO Not Attach Compendium, Do Not Delete/merge, [id number] 4 12:17:53 HbA1c (hemoglob in A1c), blood 2023 024 [email or web address] In-[facility] Order, Internal Use Only DO Not Attach Compendium DO Not Attach Compendium, Do Not Delete/merge, [id number] 4 11:21:12 Referral urologist referral 2023 024 akin Diaz MD, [address], [place], [address], 5 11:03:52 Procedures None recorded. Surgeries None recorded. Imaging None recorded. Medication Orders tramadol 50 mg tablet 2024 025 [facility]/Pharmacy #[id number], [address] [place], [address], 5 15:50:31 tramadol 50 mg tablet 2024 025 [facility]/Pharmacy #[id number], [address] [place], [address], 5 15:02:48 atorvasta tin 20 mg tablet 2024 025 [facility]/Pharmacy #[id number], [address] [place], [address], 5 15:43:14 metformin 500 mg tablet 2024 025 [facility]/Pharmacy #[id number], [address] [place], [address], 5 15:02:34 OneTouch Ultra Test strips 2024 025 [facility], [address] [place], [address], 5 09:02:07 sertralin e 100 mg tablet 2024 025 [facility]/Pharmacy #[id number], [address] [place], [address], 5 15:44:22 trazodone 100 mg tablet 2024 025 [id number] [address] [place], [address], 5 15:02:35 Stool Softener 100 mg capsule 2024 025 [id number] [address] [place], [address], 5 15:03:02 omeprazol e 40 mg capsule,d elayed release 2024 025 [id number] [address] [place], [address], 5 15:02:37 clindamyc in HCl 300 mg capsule 2024 025 [id number] [address] [place], [address], 5 15:04:43 Lantus Solostar U-100 Insulin 100 unit/mL (3 mL) subcutane ous pen 2024 025 [id number], [address] [place], [address], 5 16:23:37 tramadol 50 mg tablet 2023 024 [employer], [address], [place], [address], 4 15:15:52 nicotine 7 mg/24 hr daily transderm al patch 2023 024 [email or web address] [employer], [address], [place], [address], 5 14:39:31 Stool Softener 100 mg capsule 2023 024 [employer], [address], [place], [address], 11:22:19 Patient TargetsNo targets recorded. Patient Instructions Encounter Date Encounter Id Patient Instructions Last Modified By Organization Details Last Modified Time 07/26/2023 [id number] deciding about using medicines to quit smoking jnanney Not available 07/26/2023 11:21:10 Quitting Tobacco : Care Instructions jnanney Not available 07/26/2023 11:21:10 constipation: care instructions jnanney Not available 07/26/2023 11:21:10 A healthy lifestyle: care instructions jnanney Not available 07/26/2023 11:21:10 type 2 diabetes: care instructions jnanney Not available 07/26/2023 11:21:10 09/27/2023 [id number] A healthy lifestyle: care instructions jnanney Not available 09/27/2023 11:17:40 learning about type 2 diabetes jnanney Not available 09/27/2023 11:17:40 type 2 diabetes: care instructions jnanney Not available 09/27/2023 11:17:40 04/26/2024 [id number] A healthy lifestyle: care instructions jnanney Not available 04/26/2024 15:16:19 learning about type 2 diabetes jnanney Not available 04/26/2024 15:55:03 type 2 diabetes: care instructions jnanney Not available 04/26/2024 15:55:03 08/09/2024 [id number] A healthy lifestyle: care instructions jnanney Not available 08/09/2024 15:02:23 learning about high blood pressure jnanney Not available 08/09/2024 15:02:23 10/18/2024 [id number] A healthy lifestyle: care instructions jnanney Not [...] DO Not Attach Compendium, Do Not Delete/merge, [id number] 07/26/2023 09:23:11 09/27/19 24 09/28/2023 LIPID PANEL cholesterol, total 127 mg/dL 100-19 9 Not Available [address], [address], 09/28/2023 09:21:14 09/27/1909/28/2023 LIPID PANEL triglyceride s 135 mg/dL 0-149 Not Available [address], [address], 09/28/2023 09:21:14 09/27/1909/28/2023 LIPID PANEL HDL cholesterol 36 mg/dL >39 below low normal Not Available [address], [address], 09/28/2023 09:21:14 09/27/1909/28/2023 LIPID PANEL VLDL cholesterol quita 24 mg/dL 5-40 Not Available [address], [address], 09/28/2023 09:21:14 09/27/1909/28/2023 LIPID PANEL LDL chol calc ([facility]) 67 mg/dL 0-99 Not Available [address], [address], 09/28/2023 09:21:14 09/27/1909/28/2023 COMP. METAB OLIC PANEL (14) glucose 88 mg/dL 70-99 Not Available [address], [address], 09/28/2023 09:21:14 09/27/1909/28/2023 COMP. METAB OLIC PANEL (14) BUN 10 mg/dL 6-24 Not Available [address], [address], 09/28/2023 09:21:14 09/27/19 24 09/28/2023 COMP. METAB OLIC PANEL (14) creatinine 0.69 mg/dL 0.76-1 .27 below low normal Not Available [address], [address], 09/28/2023 09:21:14 09/27/19 24 09/28/2023 COMP. METAB OLIC PANEL (14) eGFR 115 mL/mi n/1.7 3 >59 Not Available [address], [address], 09/28/2023 09:21:14 09/27/19 24 09/28/2023 COMP. METAB OLIC PANEL (14) BUN/creatini ne ratio 14 9-20 Not Available [address], [address], 09/28/2023 09:21:14 09/27/19 24 09/28/2023 COMP. METAB OLIC PANEL (14) sodium 140 mmol/ L 134-14 4 Not Available [address], [address], 09/28/2023 09:21:14 09/27/19 24 09/28/2023 COMP. METAB OLIC PANEL (14) potassium 4.4 mmol/ L 3.5-5. 2 Not Available [address], [address], 09/28/2023 09:21:14 09/27/19 24 09/28/2023 COMP. METAB OLIC PANEL (14) chloride 100 mmol/ L 96-106 Not Available [address] [place], [address], 09/28/2023 09:21:14 09/27/19 24 09/28/2023 COMP. METAB OLIC PANEL (14) carbon dioxide, total 26 mmol/ L 20 Not Available [address], [address], 09/28/2023 09:21:14 09/27/19 24 09/28/2023 COMP. METAB OLIC PANEL (14) calcium 9.3 mg/dL 8.7-10 .2 Not Available [address], [address], 09/28/2023 09:21:14 09/27/19 24 09/28/2023 COMP. METAB OLIC PANEL (14) protein, total 7.5 g/dL 6.0-8. 5 Not Available [address], [address], 09/28/2023 09:21:14 09/27/19 24 09/28/2023 COMP. METAB OLIC PANEL (14) albumin 4.4 g/dL 4.1-5. 1 Not Available [address], [address], 09/28/2023 09:21:14 09/27/19 24 09/28/2023 COMP. METAB OLIC PANEL (14) globulin, total 3.1 g/dL 1.5-4. 5 Not Available [address], [address], 09/28/2023 09:21:14 09/27/19 24 09/28/2023 COMP. METAB OLIC PANEL (14) A/G ratio 1.4 1.2-2. 2 Not Available [address], [address], 09/28/2023 09:21:14 09/27/19 24 09/28/2023 COMP. METAB OLIC PANEL (14) bilirubin, total 0.3 mg/dL 0.0-1. 2 Not Available [address], [address], 09/28/2023 09:21:14 09/27/19 24 09/28/2023 COMP. METAB OLIC PANEL (14) alkaline phosphatase 208 IU/L 44-121 above high normal Not Available [address], [address], 09/28/2023 09:21:14 09/27/19 24 09/28/2023 COMP. METAB OLIC PANEL (14) AST (SGOT) 18 IU/L 0-40 Not Available [address], [address], 09/28/2023 09:21:14 09/27/19 24 09/28/2023 COMP. METAB OLIC PANEL (14) ALT (SGPT) 30 IU/L 0-44 Not Available [address], [address], 09/28/2023 09:21:14 09/27/19 24 09/28/2023 CARDI OVASC ULAR REPOR T interpretati on Note Suppl morena al repor t is avail able. Not Available [address], [address], 09/28/2023 09:21:15 09/27/19 24 09/28/2023 CARDI OVASC ULAR REPOR T pdf . Not Available [address], [address], 09/28/2023 09:21:15 09/27/19 24 09/28/2023 CBC, PLATE LET, NO DIFFE RENTI AL WBC 6.0 x10e3 /uL 3.4-10 .8 Not Available [facility] & [address], [address], 09/28/2023 09:21:16 09/27/19 24 09/28/2023 CBC, PLATE LET, NO DIFFE RENTI AL RBC 5.09 x10e6 /uL 4.14-5 .80 Not Available [address], [address], 09/28/2023 09:21:16 09/27/19 24 09/28/2023 CBC, PLATE LET, NO DIFFE RENTI AL hemoglobin 14.2 g/dL 13.0-1 7.7 Not Available [address], [address], 09/28/2023 09:21:16 09/27/1909/28/2023 CBC, PLATE LET, NO DIFFE RENTI AL hematocrit 43.5 % 37.5-5 1.0 Not Available [address], [address], 09/28/2023 09:21:16 09/27/1909/28/2023 CBC, PLATE LET, NO DIFFE RENTI AL MCV 86 fL 79-97 Not Available [address], [address], 09/28/2023 09:21:16 09/27/1909/28/2023 CBC, PLATE LET, NO DIFFE RENTI AL MCH 27.9 pg 26.6-3 3.0 Not Available [address], [address], 09/28/2023 09:21:16 09/27/1909/28/2023 CBC, PLATE LET, NO DIFFE RENTI AL MCHC 32.6 g/dL 31.5-3 5.7 Not Available [facility] [address], [address], 09/28/2023 09:21:16 09/27/19 24 09/28/2023 CBC, PLATE LET, NO DIFFE RENTI AL RDW 14.2 % 11.6-1 5.4 Not Available [address], [address], 09/28/2023 09:21:16 09/27/19 24 09/28/2023 CBC, PLATE LET, NO DIFFE RENTI AL platelets 210 x10e3 /uL 150-45 0 Not Available [address], [address], 09/28/2023 09:21:16 09/27/19 24 09/27/2023 HbA1c (hemo globi n A1c), blood HbA1c 5.4 Not Available In-Office Order Internal Use Only DO Not Attach Compendium DO Not Attach Compendium, Do Not Delete/merge, [id number] 09/27/2023 11:17:21 04/26/20 24 04/26/2024 HbA1c (hemo globi n A1c), blood HbA1c 6.4 Not Available In-Office Order Internal Use Only DO Not Attach Compendium DO Not Attach Compendium, Do Not Delete/merge, [id number] 04/26/2024 09:02:00 08/09/1908/11/2024 LIPID PANEL cholesterol, total 155 mg/dL 100-19 9 Not Available [address], [address], 08/11/2024 10:10:40 08/09/19 25 08/11/2024 LIPID PANEL triglyceride s 307 mg/dL 0-149 above high normal Not Available [address], [address], 08/11/2024 10:10:40 08/09/19 25 08/11/2024 LIPID PANEL HDL cholesterol 40 mg/dL >39 Not Available [address], [address], 08/11/2024 10:10:40 08/09/1908/11/2024 LIPID PANEL VLDL cholesterol quita 49 mg/dL 5-40 above high normal Not Available [address], [address], 08/11/2024 10:10:40 08/09/19 25 08/11/2024 LIPID PANEL LDL chol calc ([facility]) 66 mg/dL 0-99 Not Available [address], [address], 08/11/2024 10:10:40 08/09/19 25 08/11/2024 COMP. METAB OLIC PANEL (14) glucose 107 mg/dL 70-99 above high normal Not Available [address], [address], 08/11/2024 10:10:41 08/09/19 25 08/11/2024 COMP. METAB OLIC PANEL (14) BUN 16 mg/dL 6-24 Not Available [address], [address], 08/11/2024 10:10:41 08/09/19 25 08/11/2024 COMP. METAB OLIC PANEL (14) creatinine 0.70 mg/dL 0.76-1 .27 below low normal Not Available [address], [address], 08/11/2024 10:10:41 08/09/19 25 08/11/2024 COMP. METAB OLIC PANEL (14) eGFR 114 mL/mi n/1.7 3 >59 Not Available [address], [address], 08/11/2024 10:10:41 08/09/19 25 08/11/2024 COMP. METAB OLIC PANEL (14) BUN/creatini ne ratio 23 9-20 above high normal Not Available [address], [address], 08/11/2024 10:10:41 08/09/19 25 08/11/2024 COMP. METAB OLIC PANEL (14) sodium 137 mmol/ L 134-14 4 Not Available [address], [address], 08/11/2024 10:10:41 08/09/19 25 08/11/2024 COMP. METAB OLIC PANEL (14) potassium 4.7 mmol/ L 3.5-5. 2 Not Available [address], [address], 08/11/2024 10:10:41 08/09/19 25 08/11/2024 COMP. METAB OLIC PANEL (14) chloride 96 mmol/ L 96-106 Not Available [address], [address], 08/11/2024 10:10:41 08/09/19 25 08/11/2024 COMP. METAB OLIC PANEL (14) carbon dioxide, total 29 mmol/ L 20-29 Not Available [address], [address], 08/11/2024 10:10:41 08/09/19 25 08/11/2024 COMP. METAB OLIC PANEL (14) calcium 11.2 mg/dL 8.7-10 .2 above high normal Not Available [address], [address], 08/11/2024 10:10:41 08/09/19 25 08/11/2024 COMP. METAB OLIC PANEL (14) protein, total 7.4 g/dL 6.0-8. 5 Not Available [facility] [address], [address], 08/11/2024 10:10:41 08/09/19 25 08/11/2024 COMP. METAB OLIC PANEL (14) albumin 4.3 g/dL 4.1-5. 1 Not Available [address], [address], 08/11/2024 10:10:41 08/09/19 25 08/11/2024 COMP. METAB OLIC PANEL (14) globulin, total 3.1 g/dL 1.5-4. 5 Not Available [address], [address], 08/11/2024 10:10:41 08/09/19 25 08/11/2024 COMP. METAB OLIC PANEL (14) bilirubin, total <0.2 mg/dL 0.0-1. 2 Not Available [address], [address], 08/11/2024 10:10:41 08/09/19 25 08/11/2024 COMP. METAB OLIC PANEL (14) alkaline phosphatase 183 IU/L 44-121 above high normal Not Available [address], [address], 08/11/2024 10:10:41 08/09/19 25 08/11/2024 COMP. METAB OLIC PANEL (14) AST (SGOT) 27 IU/L 0-40 Not Available [address], [address], 08/11/2024 10:10:41 08/09/19 25 08/11/2024 COMP. METAB OLIC PANEL (14) ALT (SGPT) 28 IU/L 0-44 Not Available [address], [address], 08/11/2024 10:10:41 08/09/1908/11/2024 CARDI OVASC ULAR REPOR T interpretati on Note Suppl morena don t is avail able. Not Available [address], [address], 08/11/2024 10:10:42 08/09/1908/11/2024 CARDI OVASC ULAR REPOR T pdf . Not Available [facility] & [address], [address], 08/11/2024 10:10:42 08/09/1908/11/2024 CBC, PLATE LET, NO DIFFE RENTI AL WBC 12.5 x10e3 /uL 3.4-10 .8 above high normal Not Available [address], [address], 08/11/2024 10:10:42 08/09/1908/11/2024 CBC, PLATE LET, NO DIFFE RENTI AL RBC 4.84 x10e6 /uL 4.14-5 .80 Not Available [address], [address], 08/11/2024 10:10:42 08/09/1908/11/2024 CBC, PLATE LET, NO DIFFE RENTI AL hemoglobin 12.9 g/dL 13.0-1 7.7 below low normal Not Available [address], [address], 08/11/2024 10:10:42 08/09/1908/11/2024 CBC, PLATE LET, NO DIFFE RENTI AL hematocrit 40.9 % 37.5-5 1.0 Not Available [address], [address], 08/11/2024 10:10:42 08/09/1908/11/2024 CBC, PLATE LET, NO DIFFE RENTI AL MCV 85 fL 79-97 Not Available [address], [address], 08/11/2024 10:10:42 08/09/1908/11/2024 CBC, PLATE LET, NO DIFFE RENTI AL MCH 26.7 pg 26.6-3 3.0 Not Available [address], [address], 08/11/2024 10:10:42 08/09/1908/11/2024 CBC, PLATE LET, NO DIFFE RENTI AL MCHC 31.5 g/dL 31.5-3 5.7 Not Available [address], [address], 08/11/2024 10:10:42 08/09/1908/11/2024 CBC, PLATE LET, NO DIFFE RENTI AL RDW 15.5 % 11.6-1 5.4 above high normal Not Available [address], [address], 08/11/2024 10:10:42 08/09/19 25 08/11/2024 CBC, PLATE LET, NO DIFFE RENTI AL platelets 267 x10e3 /uL 150-45 0 Not Available [address], [address], 08/11/2024 10:10:42 08/09/1908/09/2024 HbA1c (hemo globi n A1c), blood HbA1c 6.2 Not Available In-Office Order Internal Use Only DO Not Attach Compendium DO Not Attach Compendium, Do Not Delete/merge, [id number] 08/09/2024 15:00:07 Result Notes None recorded. Problems [...] Updated DateTime 4 180.34 cm 30.7 kg/m2 56665.4 2 g 78 /min 96 % 96 % 126/74 mm[Hg] Yina Lorenzana [place] [facility] 4 11:04:36 Date Recorded Body height Body mass index (BMI) Body weight Oxygen saturation Oxygen saturation in Arterial blood by Pulse oximetry Heart rate Respiratory rate Systolic And Diastolic Provider Name and Address Organization Details Last Updated DateTime 5 180.34 cm 30.2 kg/m2 18247.3 9 g 98 % 98 % 78 /min 16 /min 118/76 mm[Hg] Theresa Pandey [place] [facility] 5 14:42:34 Date Recorded Body height Body mass index (BMI) Body weight Heart rate Oxygen saturation Oxygen saturation in Arterial blood by Pulse oximetry Systolic And Diastolic Provider Name and Address Organization Details Last Updated DateTime 4 180.34 cm 28.3 kg/m2 84055.2 5 g 79 /min 97 % 97 % 116/77 mm[Hg] Yina Lorenzana MA [facility] 4 10:50:53 Date Recorded Body height Body mass index (BMI) Body weight Respiratory rate Oxygen saturation Oxygen saturation in Arterial blood by Pulse oximetry Heart rate Systolic And Diastolic Provider Name and Address Organization Details Last Updated DateTime 5 180.34 cm 31.1 kg/m2 744970. 1 g 16 /min 96 % 96 % 88 /min 117/72 mm[Hg] Theresa Pandey MA [facility] 5 15:06:45 Date Recorded Body height Body mass index (BMI) Body weight Oxygen saturation Oxygen saturation in Arterial blood by Pulse oximetry Heart rate Systolic And Diastolic Provider Name and Address Organization Details Last Updated DateTime 4 180.34 cm 28.6 kg/m2 58246.5 4 g 95 % 95 % 102 /min 115/78 mm[Hg] Yina Lorenzana MA [facility] 4 15:01:26 Social History Question Answer Notes LastModified by Organizat ion Details LastModified Time Tobacco Smoking Status Current Every Day Smoker Ramya Bourgeois MA [facility], [facility] 03/16/2019 16:01:26 Are You Blind Or Do [...] anxious, or unable to sleep at night)? [id number] Information not available 01/09/2021 Family History Relationship Description Onset Age of this Age Resolved Age Notes LastModified by Organization Details LastModified Time Mother Kidney disease [email or web address] Not available 02/17 16:01:12 Medical History Condition Response Coronary Artery Disease N Other N High Blood Pressure N Atrial Fibrillation N Kidney or Bladder Problems N Thyroid Problems N GI Problems Y Depression Y COPD N Blood Clots N Skin Problems Y Eating Disorder N Anemia N Heart Attack (CA) N Anxiety Disorder N Diabetes Y Muscle, [...] influenza, unspecified formulation 9 completed Not Available [facility] 07/04/2023 20:40:43 COVID-19, mRNA, LNP-S, PF, 30 mcg/0.3 mL dose 1 completed Not Available [facility] 07/04/2023 20:40:43 COVID-19, mRNA, LNP-S, PF, 30 mcg/0.3 mL dose 1 completed Not Available [facility] 07/04/2023 20:40:43 Influenza, split virus, quadrivalent, preservative 0 completed Lizabeth Nieves MA null, [place] [facility] 06/04/2020 15:52:32 Past Encounters Encounter ID Performer Location Encounter Start Date Encounter Closed Date Diagnosis/Indication Diagnosis SNOMED-CT Code Diagnosis ICD10 Code Diagnosis IMO Codes Diagnosis Note [id number] [facility] [address] [place] [address] 03/16/2019 15:52:58 03/16/2019 16:29:51 Type 2 diabetes mellitus 47044831 E11.9 Hidradenit is suppurativa 95235642 L73.2 [id number] Nayana Peterson PA-C [facility] [address] [place] [address] 01/04/2020 10:45:28 01/07/2020 07:49:31 Type 2 diabetes mellitus 66371638 E11.9 [id number] Nayana Peterson PA-C [facility] [address] [place] [address] 04/01/2020 13:56:14 04/02/2020 11:45:35 Type 2 diabetes mellitus 41354642 E11.9 Cellulitis of left lower limb 5117992966 7570993 L03.425 [id number] Se Ram MD [facility] [address] [place] [address] 06/04/2020 15:21:14 06/04/2020 15:52:39 Type 2 diabetes mellitus without complication 354502586 E11.9 Type 2 kay betes mellitus 41336838 E11.9 Administra tion of influenza vaccine 87461477 Z23 [id number] Se Ram MD [facility] [address] [place] [address] 01/09/2021 10:24:15 01/12/2021 13:38:26 Hidradenitis suppurativa 08291070 L73.2 [id number] Nayana Peterson PA-C [facility] [address] [place] [address] 12/01/2021 15:04:09 12/01/2021 15:52:08 Type 2 diabetes mellitus 99564929 E11.9 Hidradenit is suppurativa 41382010 L73.2 Primary insomnia 3517774 F51.01 [id number] Se Ram MD [facility] [address] [place] [address] 01/05/2022 11:50:21 01/05/2022 12:28:46 Type 2 diabetes mellitus 08942369 E11.9 [id number] Nayana Peterson PA-C [facility] [address] [place] [address] 10/12/2022 14:24:10 10/13/2022 12:46:20 Type 2 diabetes mellitus 08624487 E11.9 Mixed hyperlipidemia 267 012964 E78.2 Seasonal a llergic rhinitis 394368746 J30.2 Overweight 830865638 E66 .3 [id number] Nayana Peterson PA-C [facility] [address] [place] [address] 07/26/2023 10:54:15 07/27/2023 09:55:19 Type 2 diabetes mellitus without complication 063469088 E11.9 Constipation 70201078 K5 9.09 Tobacco de pendence syndrome 56438415 F17.200 Overweight 199012077 E66 .3 [id number] Nayana Peterson PA-C [facility] [address] [place] [address] 09/27/2023 10:46:09 10/01/2023 12:06:56 Adult health examination 323562488 Z00.00 Type 2 kay betes mellitus 25932087 E11.9 Hidradenit is suppurativa 52511309 L73.2 Overweight 858083776 E66 .3 [id number] Nayana Peterson PA-C [facility] [address] [place] [address] 04/26/2024 14:45:21 05/03/2024 10:52:28 Type 2 diabetes mellitus 89221712 E11.9 Hidradenit is suppurativa 75950365 L73.2 Swelling of testicle 438 616212 N50.89 Overweight 143088068 E66 .3 [id number] Se Ram MD [facility] [address] [place] [address] 08/09/2024 14:24:27 08/13/2024 13:10:41 Type 2 diabetes mellitus 95405715 E11.9 Cellulitis of left lower limb 5691629731 7197806 L03.116 Constipation 36649864 K5 9.09 Type 2 kay betes mellitus without complication 775483279 E11.9 Hidradenit is suppurativa 69631083 L73.2 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 Gastroesop hageal reflux disease without esophagitis 891877410 K21.9 Essential hypertension 94618613 I10 Overweight 830092786 E66 .3 [id number] Se Ram MD [facility] [address] [place] [address] 10/18/2024 14:55:59 10/19/2024 11:04:05 Hidradenitis suppurativa 87756447 L73.2 cont prn..re evaluate after surgery Long-term drug therapy 383513519 Z79.891 Type 2 kay betes mellitus without complication 522639173 E11.9 cont current diabetic regimen Overweight 964399074 E66 .3 Health Concerns Section Related Observation LastModified by Organization Detai ls LastModified Time None Recorded Concern Status LastModified by Organization Details LastModified Time None Recorded Advance Directives Directive None Recorded Payers Insurance Date Sequence Insurance Name Policy Number Policy Barnes Covered Member ID Barnes Member ID Guarantor Name 05/15/2025 1 [facility] (MEDICARE REPLACEMENT/AD VANTAGE - PPO) [id number] Chago Cao [id number] Chago Cao 05/11/2025 2 [place] WHEN MED[place]ARE OR MEDICARE REPLACEMENT PRIMARY) Chago Cao [id number] Chago Cao 08/09/2024 1 [place] Cao [id number] Chago Cao 08/09/2024 [place] [facility] [place] [id number] [place] Notes Date Note Type Note Provider Name and Address Organization Details Recorded Time 07/26/2023 text/html ROS as noted in the HPI has developed constipation for a month...sporadic large and very hard...no stool softener...also wants nicotine patch Nayana Peterson PA-C Attn: Accounting,[address] [facility], [place], [address], [facility] 07/26/2023 11:24:37 09/27/2023 text/html ROS as noted in the HPI recheck on diabetes..started cosentyx...needs labs...cosentyx has made his BS elevated Nayana Peterson PA-C Attn: Accounting,[address] [facility], [place], [address], [facility] 09/27/2023 11:18:35 04/26/2024 text/html ROS as noted in the HPI abscess on rt testicle..infectio n went to testicle..needs urology he was told Nayana Peterson PA-C Attn: Accounting,[address] [facility], [place], [address], [facility] 04/26/2024 15:16:30 08/09/2024 text/html ROS as noted in the HPI heart is beating irreg...fast then slow...getting heartburn now...denies N/V..denies chest pain or jaw pain..hx of diabetes htn..no family cardiac hx Lizabeth Nieves MA [facility], [facility] 08/09/2024 15:16:48 10/18/2024 text/html ROS as noted in the HPI hx of hydranitis supprativa..has one last surgery..uses tramadol vs pain for this..moved out of [facility] and living independant..hx of diabetes uses lantus and metformin Nayana Peterson PA-C Attn: Accounting,[address] [facility], [place], [address], [facility] 10/18/2024 15:51:51
== END 2025-05-30 14:40 | disposition home or self-care (01) ==
LOC: CHSIMG 14:42
PROVIDERS: PCP Family Medicine; Visit Provider Family Medicine
DX: M54.17 Radiculopathy, lumbosacral region (principal); M43.06 Spondylolysis, lumbar region
CPT/HCPCS: 72148

== ENCOUNTER 2025-07-08 08:28 | Outpatient (CLI) | payer MEDICARE, MEDICAID, SELFPAY ==
--- OUTSIDE RECORDS SUMMARY | 2025-07-08 08:54 | XMS_ITS | Patient Health Record ---
Author Organization [facility] [place] Address [address] [place] [address] Care Team Providers Care Clinical Geneticist Name Role Phone Diya Ruiz Unavailable [phone] Reason For Referral No Information Medications Medication SIG (Take, Route, Frequency, Duration) Notes Start Date End Date Status MICHAELIRA(CF) PEN CROHN'S-ULC COLITIS-HID SUP STRT 80 MG/0.8 ML SUBCUT KT *Reorder from [facility] for eRx and Interaction Alerts* 10/08/2022 Active Omeprazole 40 MG Capsule Delayed Release Oral 10/08/2022 Active Triamcinolone Acetonide 0.1% Cream External 10/08/2022 Active Nystatin 727865 UNIT/GM Powder External 10/08/2022 Active OneTouch Ultra [...] In Vitro 10/08/2022 Active OneTouch Delica Plus [id number] Miscellaneous 10/08/2022 Active traZODone HCl 100 MG Tablet Oral 10/08/2022 Active traMADol HCl 50 MG Tablet Oral 10/08/2022 Active TECHLITE PEN NEEDLE 32 gauge x 5/32 NEEDLE, DISPOSABLE MISCELLANEOUS *Reorder from [facility] for eRx and Interaction Alerts* 10/08/2022 Active TAB-A-JEANETTE MULTIVITAMIN W-IRON 15 MG IRON-400 MCG TABLET *Reorder from [facility] for eRx and Interaction Alerts* 10/08/2022 Active MUCUS ER 600 mg Tablet Extended Release 12 Hour Oral *Reorder from [facility] for eRx and Interaction Alerts* 10/08/2022 Active predniSONE 10 MG Tablet Oral 10/08/2022 Active HUMIRA(CF) PEN 40 MG/0.4 ML SUBCUTANEOUS KIT *Reorder from [facility] for eRx and Interaction Alerts* 10/08/2022 Active ARIPiprazole 10 MG Tablet Oral 10/08/2022 Active Levemir FlexPen 100 unit/mL (3 mL) INSULIN PEN (ML) SUBCUTANEOUS *Reorder from [facility] for eRx and Interaction Alerts* 10/08/2022 [...] Insured Coverage Start Date Coverage End Date [facility] Medicare Replacement/ Advantage - Ppo [address] [address] [place] [address] [id number] JAMAR ZELAYA Self - patient is the insured Medicaid-[place] [address] [address] [place] [address] [id number] JAMAR ZELAYA Self - patient is the insured
--- OUTSIDE RECORDS SUMMARY | 2025-07-08 08:54 | XMS_ITS | Clinical Summary ---
Author Organization [facility] Address [address] [place] [address] Care Team Providers Care Advanced Practice Nurse Name Role Phone Dominic Peterson Primary Care Provider [phone] Allergies No known active allergies Medications ARIPiprazole [...] (3 mL) pen for injection 4 Active clindamycin (CLEOCIN T) 1 % lotion Apply to groin and axillae daily PRN 60 mL 11 5 Active doxycycline (VIBRAMYCIN) 100 mg capsule Take 1 tablet/capsul e (100 mg total) by mouth 2 (two) times a day 60 tablet/capsu le 5 5 Active metroNIDAZOLE (METROCREAM) 0.75 % creamIndications :Acne Rosacea Apply to face once daily 45 g 5 5 Active insulin lispro (HumaLOG) 100 unit/mL injection Inject under the skin 3 (three) times a day before meals. 022 Discontinu ed(Formula ry change) nystatin creamIndications :Hidradenitis suppurativa of multiple sites Apply topically 2 (two) times a day 30 g 1 4 025 Active Problems Problem Noted Date Diagnosed Date Hidradenitis suppurativa of multiple sites 12/20 Axillary hidradenitis suppurativa 12/24/2022 Grief reaction 12/08/2017 Homeless single person 12/08/2017 Depression, major, recurrent, moderate 8 Chest pain 12/02/2017 Sepsis 12/02/2017 Encounters Date Type Department Care Team Description 06/24/2025 11:30 AM GAMEPLAY ENGINEER Office Visit [facility] Medicine Dermatology [address] [place] [address] [address] [place] [address] Nick Llanos MD Hidradenitis suppurativa (Primary Dx); Lymphedema from Last 3 Months Immunizations Immunization Administration [...] 07/16/2021, 09/25/2020, 09/05/2020 Influenza Vaccine (#1) 2025 , 05/25/2023, 04/25/2022, Additional history exists Hepatitis C Screening Completed 07/14/2022, 022 Pneumococcal vaccine <65 Aged Out No longer eligible based on patient's age to complete this topic Procedures Procedure Name Priority Date/Time Associated Diagnosis Comments HEPATITIS C ANTIBODY Routine 07/14/2022 10:35 AM GAMEPLAY ENGINEER from Last 3 Months or Most Recently Relevant to Health Maintenance Results * Hepatitis C antibody (07/14/2022 10:35 AM GAMEPLAY ENGINEER) Hep C Ab Nonreactive Nonreactive [facility] [...] on 2019. Blood 07/14/2022 10:3 5 AM GAMEPLAY ENGINEER 07/14/2022 1:53 PM GAMEPLAY ENGINEER Nick Llanos MD LAB MICROBIOLOGY - GENERA L ORDERABLES Edited Result - Final [facility] [address] [place] [address] from Last 3 Months or Most Recently Relevant to Health Maintenance Insurance MEDICARE IDPA IDPA [facility] MEDICARE ADVANTAGE [facility] Address: [address] [address] [place] [id number] [facility] MEDICARE ADVANTAGE [place] [id number] [employer] [facility] MEDICARE ADVANTAGE [facility] Address: [facility] [address] [place] [address] Advance Directives For more information, please contact: [phone] * Full Code (Latest Code Status on File) Date Activated Date Inactivated Comments 02/21/2024 11:02 AM 02/23/2024 6:13 PM Care Teams Advanced Practice Nurse Relationship Specialty Start Date End Date Dominic Peterson PA [address] [place] [address] PCP - General Family Practice 05/11/22
[2025-07-08 09:04] LABS: Hematocrit 38.6 % (40.0-54.0); Hemoglobin 11.6 g/dL (14.0-18.0); Immature Granulocyte Percent A 0.4 % (0.0-0.0); Lymphocytes Absolute Auto 0.60 K/mm3 (1.10-4.50); Mean Corpuscular HGB Conc 30.1 g/dL (32-36); Mean Corpuscular Hemoglobin 23.5 pg (27.0-31.0); Mean Corpuscular Volume 78.3 fL (78.0-102.0); Nucleated Red Blood Cells Absolute Auto 0.00 K/mm3 (0.00-0.00); Nucleated Red Blood Cells Perc 0.0 % (0-0.0); Platelet Count Result 204 K/mm3 (150-420); Red Blood Count 4.93 M/mm3 (4.70-6.10); White Blood Count 7.4 K/mm3 (4.8-10.8)
[2025-07-08 09:23] LABS: Hemoglobin A1C 5.9 % (<5.7)
[2025-07-08 09:26] LABS: MALB Creatinine Ratio 7.2 mg/g (0-30)
[2025-07-08 09:34] LABS: Alanine Aminotransferase 22 U/L (6-50); Albumin Level 4.3 g/dL (3.5-5.1); Alkaline Phosphatase 143 U/L (38-126); Anion Gap 10 mmol/L (4-12); Aspartate Amino Transferase 24 U/L (17-59); Bilirubin,Total 0.3 mg/dL (0.2-1.3); Blood Urea Nitrogen 11 mg/dL (9-20); Calcium 9.2 mg/dL (8.4-10.2); Carbon Dioxide 25 mmol/L (22-30); Chloride 106 mmol/L (98-107); Cholesterol 118 mg/dL (0-200); Estimated Glomerular Filt Rate > 60; Glucose 133 mg/dL (65-110); HDL Direct 48 mg/dL; Osmolality Calculated 293 mOsm/kg (285-295); Potassium 4.4 mmol/L (3.4-5.0); Sodium 141 mmol/L (137-145); Total Protein 7.0 g/dL (6.3-8.2); Triglycerides 91 mg/dL (<150)
[2025-07-08 10:05] LABS: Thyroid Stimulating Hormone 0.917 uIU/mL (0.465-4.680)
== END 2025-07-08 08:29 | disposition home or self-care (01) ==
LOC: CHSLAB 08:31
PROVIDERS: PCP Family Medicine; Visit Provider Family Medicine
DX: L73.2 Hidradenitis suppurativa (principal); E78.2 Mixed hyperlipidemia; E11.65 Type 2 diabetes mellitus with hyperglycemia; E03.4 Atrophy of thyroid (acquired)
CPT/HCPCS: 36415; 80053; 80061; 82043; 83036; 84443; 85025